=== PATIENT | female | born 1965 | race Caucasian/White ===

== ENCOUNTER → 2016-04-03 | Outpatient (CLI) | payer MEDICARE, OTHER ==
--- NOTE | 2016-04-03 13:28 | XR ---
EXAMINATION TYPE: XR chest 2V DATE OF EXAM: 04/03/2016 12:58 PM COMPARISON: NONE HISTORY: Chest pain TECHNIQUE: Frontal and lateral views of the chest are obtained. FINDINGS: There is no focal air space opacity, pleural effusion, or pneumothorax seen. The cardiac silhouette size is within normal limits. There is a scoliosis. Prominent lung volumes are noted. Kamaljit gical clips are present in the right upper quadrant. The osseous structures are intact. IMPRESSION: No acute cardiopulmonary process.
== END | disposition home or self-care (01) ==
LOC: RADXRMAIN 12:42
PROVIDERS: ATTEND Family Medicine
DX: R07.89 Other chest pain (principal)
CPT/HCPCS: 71020

== ENCOUNTER → 2016-04-15 | Outpatient (CLI) | payer MEDICARE, OTHER ==
[2016-04-15 08:31] LABS: EKG EKG PERFORMED
[2016-04-15 12:18] LABS: Cholesterol 176 mg/dL (<200); HDL Cholesterol 82 mg/dL (40-60); Triglycerides 105 mg/dL (<150)
[2016-04-15 13:05] LABS: Vitamin B12 604 pg/mL (239-931)
== END ==
LOC: LABWHC1 08:23
PROVIDERS: ATTEND Internal Medicine Endocrinology, Diabetes & Metabolism
DX: E10.65 Type 1 diabetes mellitus with hyperglycemia (principal); E03.9 Hypothyroidism, unspecified
CPT/HCPCS: 36415; 80061; 82043; 82607; 84443; 93005

== ENCOUNTER → 2016-06-04 | Outpatient (CLI) | payer MEDICARE, OTHER ==
--- NOTE | 2016-06-04 11:25 | XR ---
EXAMINATION TYPE: XR chest 2V DATE OF EXAM: 06/04/2016 11:14 AM COMPARISON: 04/03/2016 TECHNIQUE: PA and lateral views submitted. HISTORY: Pain FINDINGS: The lungs are clear and there is no pneumothorax, pleural effusion, or focal pneumonia. Curvature o f the spine noted. IMPRESSION: 1. No acute process.
== END | disposition home or self-care (01) ==
LOC: RADXRMAIN 10:58
PROVIDERS: ATTEND Family Medicine
DX: R52 Pain, unspecified (principal)
CPT/HCPCS: 71020

== ENCOUNTER → 2016-09-24 | Outpatient (CLI) | payer MEDICARE, OTHER ==
--- NOTE | 2016-09-24 08:03 | XR ---
Cervical spine HISTORY: M54.2, cervicalgia 5 views of the cervical spine Cervical vertebral bodies show preserved height, alignment, and bone mineralization. There is no sign ificant foraminal encroachment on oblique views. Loss of cervical lordosis could be due to muscle spa sm. Cervical vertebral bodies show preserved height, alignment, and bone mineralization. Disc spaces and prevertebral soft tissues are normal. IMPRESSION: Loss of lordosis.
--- NOTE | 2016-09-24 08:17 | CT ---
EXAMINATION TYPE: CT brain wo con DATE OF EXAM: 09/24/2016 COMPARISON: 02/01/2015 HISTORY: 51-year-old female Bilateral occipital neuralgia TECHNIQUE: Examination was done in axial plane without intravenous contrast. Coronal and sagittal r econstructions performed. CT DLP: 945.5 mGycm Automated exposure control for dose reduction was used. FINDINGS: There is no evidence of acute intracranial hemorrhage, acute ischemic changes, mass, mass-effect, or extra-axial fluid collection. There is no effacement of cerebral sulci or basal subarachnoid cister ns. There is no hydrocephalus. There is no midline shift. Hay-white matter distinction is preserv ed. Redemonstrated postsurgical changes of the paranasal sinuses. There is improved, now moderate mucosal thickening throughout the maxillary and ethmoid sinuses. Mastoid air cells well pneumatized. Orbits and globes appear intact. IMPRESSION: 1. No acute intracranial abnormality seen. 2. Prior FESS. There is improved, now moderate chronic paranasal sinus disease.
== END | disposition home or self-care (01) ==
LOC: RADCTMAIN 07:10
PROVIDERS: ATTEND Psychiatry & Neurology Neurology
DX: G44.309 Post-traumatic headache, unspecified, not intractable (principal); J34.9 Unspecified disorder of nose and nasal sinuses; M54.2 Cervicalgia
CPT/HCPCS: 70450; 72050

== ENCOUNTER → 2016-10-23 | Outpatient (CLI) | payer MEDICARE, OTHER ==
[2016-10-23 09:12] LABS: ALT 31 U/L (9-52); AST 22 U/L (14-36); Alkaline Phosphatase 47 U/L (38-126); Anion Gap 9 mmol/L; Blood Urea Nitrogen 9 mg/dL (7-17); Calcium 9.5 mg/dL (8.4-10.2); Carbon Dioxide 29 mmol/L (22-30); Chloride 101 mmol/L (98-107); Cholesterol 174 mg/dL (<200); Glucose 179 mg/dL (74-99); HDL Cholesterol 106 mg/dL (40-60); Non-African American GFR(MDRD) >60 (>60 ml/min/1.73 sqM); Potassium 4.3 mmol/L (3.5-5.1); Sodium 139 mmol/L (137-145); Total Bilirubin 0.8 mg/dL (0.2-1.3); Total Protein 6.9 g/dL (6.3-8.2)
[2016-10-23 18:42] LABS: Urine Creatinine 112.6 mg/dL
== END | disposition home or self-care (01) ==
LOC: LABWHC1 08:01
PROVIDERS: ATTEND Internal Medicine Endocrinology, Diabetes & Metabolism
DX: E10.65 Type 1 diabetes mellitus with hyperglycemia (principal); E03.8 Other specified hypothyroidism
CPT/HCPCS: 36415; 80053; 80061; 82043; 82570; 84443

== ENCOUNTER → 2017-05-07 | Outpatient (CLI) | payer MEDICARE, OTHER ==
[2017-05-07 09:45] LABS: ALT 25 U/L (9-52); AST 21 U/L (14-36); Albumin 4.1 g/dL (3.5-5.0); Alkaline Phosphatase 52 U/L (38-126); Anion Gap 10 mmol/L; Blood Urea Nitrogen 10 mg/dL (7-17); Calcium 9.8 mg/dL (8.4-10.2); Carbon Dioxide 31 mmol/L (22-30); Chloride 99 mmol/L (98-107); Cholesterol 188 mg/dL (<200); Glucose 207 mg/dL (74-99); HDL Cholesterol 84 mg/dL (40-60); LDL Cholesterol,Calculated 87 mg/dL (0-99); Potassium 4.6 mmol/L (3.5-5.1); Sodium 140 mmol/L (137-145); Total Bilirubin 0.5 mg/dL (0.2-1.3); Total Protein 6.8 g/dL (6.3-8.2); Triglycerides 83 mg/dL (<150)
[2017-05-07 17:30] LABS: Hemoglobin A1C 8.7 % (4.0-6.0)
== END | disposition home or self-care (01) ==
LOC: LABWHC1 08:38
PROVIDERS: ATTEND Internal Medicine Endocrinology, Diabetes & Metabolism
DX: E10.65 Type 1 diabetes mellitus with hyperglycemia (principal); E03.8 Other specified hypothyroidism
CPT/HCPCS: 36415; 80053; 80061; 82043; 82570; 83036; 84443

== ENCOUNTER → 2017-07-30 | Outpatient (CLI) | payer MEDICARE, OTHER ==
--- NOTE | 2017-07-31 14:31 | MM ---
Reason for exam: screening (asymptomatic). Last mammogram was performed 3 years ago. History: Patient is postmenopausal. Took hormonal contraceptives for 1 month beginning at age 22. Physical Findings: A clinical breast exam by your physician is recommended on an annual basis and results should be correlated with mammographic findings. MG 3D Screening Mammo W/Cad Bilateral CC and MLO view(s) were taken. Prior study comparison: July 21, 2014, bilateral MG screening mammo w CAD. July 16, 2013, bilateral MG screening mammo w CAD. The breast tissue is extremely dense which could obscure a lesion on mammography. No suspicious abnormality. No significant changes when compared with prior studies. ASSESSMENT: Negative, BI-RAD 1 RECOMMENDATION: Routine screening mammogram of both breasts in 1 year.
== END | disposition home or self-care (01) ==
LOC: RADMAMWWP 11:14
PROVIDERS: ATTEND Family Medicine
DX: Z12.31 Encounter for screening mammogram for malignant neoplasm of breast (principal)
CPT/HCPCS: 77063; 77067

== ENCOUNTER → 2018-03-10 | Outpatient (CLI) | payer MEDICARE, OTHER ==
[2018-03-10 10:13] VITALS: BP 116/65; PULSE 86; RESP 16; TEMP 97.8; BMI 17.9
--- NOTE | 2018-03-10 11:33 | P.HPOB ---
History of Present Illness H&P Date: 03/10/18 Chief Complaint: The patient is here for her routine gynecologic exam. This is a 53-year-old with an LMP of 2001. The patient status post MICHAEL in 2001 for benign reasons. The patient states she had a pelvic exam last year by her primary care physician because she was feeling some lumps in the vagina. The lumps are felt to be some type of vaginal skin tags per the patient. She feels 2 near the vaginal opening just inside of the vagina, and one deeper inside of the vagina. She states these can uncomfortable and burn with sexual intercourse. She states she 1st started noticing these lumps a few months ago and had never noticed them before. Review of Systems She believes she has lost about 14 pounds over the last 5 months. She denies respiratory, cardiac, or G.I. problems. Past Medical History Past Medical History: Asthma, Diabetes Mellitus (Type I diabetes), Hyperlipidemia, Thyroid Disorder (Hypothyroid) Additional Past Medical History / Comment(s): back pain. 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 She denies any other STDs. History of Any Multi-Drug Resistant Organisms: None Reported Past Surgical History: Adenoidectomy, Section (2nd , done with tubal ligation.), Cholecystectomy, Hernia Repair (Hiatal hernia), Hysterectomy (MICHAEL), Tonsillectomy, Tubal Ligation Additional Past Surgical History / Comment(s): sinus surgery. Multiple hand and foot surgeries. Correction of pyloric stenosis as an infant. Past Psychological History: No Psychological Hx Reported Smoking Status: Former smoker (Quit around age 32) Past Alcohol Use History: Occasional (4 per week.) Past Drug Use History: None Reported Additional History: She is , but lives with her ex- on and off. She is infrequently sexually active with him. 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 - Past Family History Mother Family Medical History: No Reported History Medications and Allergies Home Medications Medication Instructions Recorded Confirmed Type Insulin Aspart [NovoLOG] 0 unit CNTSUBQINF DIRECTED 10/15/14 03/10/18 History Omeprazole [PriLOSEC] 20 tab PO QAM 10/15/14 03/10/18 History Albuterol Inhaler [Ventolin Hfa 2 puff INHALATION DIRECTED PRN 12/19/1403/10 History Inhaler] Levothyroxine Sodium [Synthroid] 75 mcg PO MOWEFR 12/19/14 03/10/18 History Sucralfate [Carafate] 1 gm PO BID 12/19/14 03/10/18 History Pravastatin Sodium [Pravachol] 20 mg PO HS 03/10/18 03/10/18 History Allergies Allergy/AdvReac Type Severity Reaction Status Date / Time Penicillins AdvReac Nausea & Verified 03/10/18 10:01 Vomiting PAIN MEDS AdvReac Nausea & Uncoded 03/10/18 10:01 Vomiting Exam Vital Signs Temp Pulse Resp BP Pulse Ox 03/10/18 10:06 97.8 F 86 16 116/65 98 Intake and Output 03/09/18 03/10/18 03/10/18 22:59 06:59 14:59 Other: Weight 41.73 kg Height 5'0", weights 92 pounds, BMI 18.0. This is a well-developed well-nourished thin white female who is alert and oriented times 3 in no acute distress. HEENT: Within normal limits. NECK: Supple without mass or thyromegaly. CHEST AND LUNGS: Clear to auscultation. HEART: Regular rate and rhythm. BREASTS: Are without mass or discharge. AXILLARY EXAM: Negative for adenopathy. BACK: Negative for CVA tenderness. ABDOMEN: Soft, nontender, without palpable masses. There is a subcutaneous insulin pump at the right side of her abdomen. There is no erythema or tenderness. PELVIC EXAM: External genitalia appears normal with mild atrophy. Vagina appears normal with mild atrophy. There are no visible lesions. The skin tags that she describes on the right side seem to be in the location of the hymen ring reminent. These are noninflamed and nontender and appears as benign hymen tissue. There is a palpable submucosal nodule measuring approximately 1 cm to the left of the midline near the posterior aspect of the pubic symphasis. This feels firm and does not seem to be attached to the pubic synthesis. It is mildly tender. And is approximately 6 to 7 cm from the introitus. There is no evidence of prolapse. Bimanual examination is negative for mass or tenderness. RECTAL EXAM: Rectovaginal exam is negative for mass or tenderness and is negative for occult blood. EXTREMITIES: Nontender. IMPRESSION: 1. 53-year-old menopausal female status post MICHAEL for benign reasons 2. Submucosal anterior vaginal nodule to the left of the midline posterior to the pubic symphasis. She believes this is a recent finding on herself exam. 3. Dyspareunia at the area of the vaginal nodule. PLAN: 1. Pap smears have been discontinued. 2. Self breast awareness was discussed with the patient. Mammogram was done on 07/30/2017 and was benign. She will repeat this in one year. 3. She will be referred to a local cabin crew for possible removal of the vaginal nodule since this may need to be done under anesthesia. 4. STD prevention was discussed. I have recommended that she is condoms if she is sexually active. 5. Blood tests that will be done today include HIV, RPR, hepatitis B surface antigen, hepatitis C antibody. Also TSH and T4 will be included per the patient 's request. 6. The patient will return in one year and PRN.
[2018-03-10 16:30] LABS: T4, Free (Free Thyroxine) 1.4 ng/dL (0.80-1.80)
[2018-03-10 17:14] LABS: Hepatitis C IgG Antibody Non-Reactive (Non-Reactive)
[2018-03-10 18:16] LABS: HIV 1 AB Non-Reactive (Non-Reactive); HIV AB P24 Non-Reactive (Non-Reactive); HIV P24 AG Non-Reactive (Non-Reactive)
== END | disposition home or self-care (01) ==
LOC: WWCWWP 09:43
PROVIDERS: ATTEND Obstetrics & Gynecology
DX: E03.9 Hypothyroidism, unspecified (principal); Z11.3 Encounter for screening for infections with a predominantly sexual mode of transmission
CPT/HCPCS: 36415; 84439; 84443; 86780; 86803; 87340; 87390

== ENCOUNTER → 2018-04-20 | Outpatient (CLI) | payer MEDICARE, OTHER ==
[2018-04-20 12:56] LABS: HCT 36.7 % (34.0-46.0); HGB 11.7 gm/dL (11.4-16.0); MCH 32.1 pg (25.0-35.0); MCHC 31.9 g/dL (31.0-37.0); MCV 100.6 fL (80.0-100.0); Mean Platelet Volume 8.3; Platelet Count 204 k/uL (150-450); RBC 3.64 m/uL (3.80-5.40); RDW 12.4 % (11.5-15.5); WBC 4.4 k/uL (3.8-10.6)
[2018-04-20 14:45] LABS: Eosinophils # (M) 0.09 k/uL (0-0.7); Lymphocytes # (M) 0.92 k/uL (1.0-4.8); Monocytes # (M) 0.09 k/uL (0-1.0); Neutrophils % (M) 75 %; Nucleated Red Blood Cells 0 /100 WBC (0-0); Total Cells Counted 100
[2018-04-20 14:48] LABS: Hypochromasia (M) Present
== END | disposition home or self-care (01) ==
LOC: LABPAT 11:51
PROVIDERS: ATTEND Obstetrics & Gynecology
DX: Z01.818 Encounter for other preprocedural examination (principal); E10.9 Type 1 diabetes mellitus without complications; N94.10 Unspecified dyspareunia; N89.8 Other specified noninflammatory disorders of vagina; Z01.812 Encounter for preprocedural laboratory examination
CPT/HCPCS: 36415; 85025; 93005

== ENCOUNTER → 2018-05-05 | Day surgery (SDC) | payer MEDICARE, OTHER ==
[2018-04-28 11:07] VITALS: BMI 18.3
--- NOTE | 2018-04-30 10:19 | HP ---
HISTORY AND PHYSICAL DATE OF SURGERY: 05/05/2018 This is a 53-year-old female who presented from Dr. Zapata's care with complaint of a vaginal nodule. It has been present for approximately 6 months. She states it is very uncomfortable with intercourse and wishes it removed. This cannot be accomplished in the office setting due to the deep nature of the lesion, therefore it has been scheduled to be removed as an outpatient. Patient has no other problems or difficulties to report. REVIEW OF SYSTEMS: Otherwise negative. PAST MEDICAL HISTORY: Significant for asthma, type 1 diabetes, genital condylomata, hyperlipidemia, and hypothyroidism. PAST SURGICAL HISTORY: Significant for total abdominal hysterectomy 2001 for benign indications, sinus surgery, pyloric stenosis correction. Excision of benign lipomas, hiatal hernia repair, cholecystectomy, section, tonsillectomy and adenectomy in the past. CURRENT MEDICATIONS: Carafate 1 g tablet twice daily, levothyroxine 75 mcg daily, NovoLog insulin subcutaneously, p.r.n. blood sugar control, omeprazole 20 mg capsules before meals, Pravachol 20 mg once daily, Ventolin HFA 90 mcg inhaler, 2 puffs q.6 hours as needed. ALLERGIES: Include CODEINE, ERYTHROMYCIN, PENICILLIN, and "PAIN MEDICINES." FAMILY HISTORY: Significant for myocardial infarction. REPRODUCTIVE HISTORY: sections x2, vaginal delivery x1 at 34 weeks gestation. Patient is postmenopausal at this time. 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 She is a former tobacco smoker. PHYSICAL EXAM: She is 5 4 foot, 11.5 inches, 92 pounds, BMI 18.5. HEENT exam reveals no thyromegaly, good dentition, no obvious adenopathy. Chest is clear to auscultation in all marcum anteriorly and posteriorly. Cardiac exam reveals regular rate and rhythm with no murmur, click, or rub. Abdomen is soft, scaphoid, no organosplenomegaly, active bowel sounds. Breast exam reveals breasts to be bilaterally symmetric to inspection with no skin dimpling, nipple discharge, axillary adenopathy or discernible lesions or masses. The extremities reveal no edema, good peripheral pulses noted. Uterine cervix and uterus itself have been surgically removed. Adnexal exam is negative bilaterally. There is no cystocele or rectocele present. Deep inside the upper left apex of the vaginal vault, there is an 8 to 10 mm tender mobile firm nodule in the submucosal tissue. It is not fixed, but mobile, and in the corner of the vaginal closure from previous hysterectomy, I suspect this is a benign lesion. Rectal exam reveals good tone, FIT negative stool. IMPRESSION: Mobile tender vaginal apex lesion noted in the upper left apex of the vaginal vault. Patient wishing this to be removed, as she complains of tenderness with deep penetration at the time of intercourse. PLAN: We will proceed with excision of the vaginal lesion in the operating room at [facility] as scheduled on 05/05/2018. The risks of surgery including but not exclusive of bleeding, infection, perforation or damage to bowel, bladder, ureters, all been discussed in detail. Risks of infection, bleeding, risks of anesthesia all reviewed. Questions answered and I believe the patient understands our discussion with no reservation. MMODL / IJN: [id number] /
[~2018-05-05] MED LIST: DEXAMETHASONE SOD PHOSPHATE 10 MG/ML 1 ML VIAL IV ONE; HYDROmorphone 0.5 MG/0.5 ML SYRINGE IVP PRN; KETOROLAC 30 MG/ML 1 ML VIAL ONE; LACTATED RINGERS 1,000 ML IV SCH; LIDOCAINE 1% 20 ML VIAL (10MG/ML) FOR IV START INTRADERMA ONE; LIDOCAINE 1% INJ 10MG/ML (20 ML MDV) ONE; LIDOCAINE 1%-EPI 1:100,000 20 ML VIAL SQ ONE; MIDAZOLAM (PF) 2 MG/2 ML VIAL IV PRN; MIDAZOLAM 2 MG/2 ML VIAL ONE; ONDANSETRON 4 MG/2 ML VIAL IVP ONE; PROPOFOL 10 MG/ML 20 ML VIAL IV ONE; Pre Op ABX Message 1 EACH MISC MISCELLANE ONE; SCOPOLAMINE 1.5MG/72HR PATCH TRANSDERM ONE; SUCCINYLCHOLINE CHLORIDE 100 MG/5 ML SYR IV ONE; fentaNYL (PF) 50 MCG/ML 2 ML AMP ONE
[2018-05-05 07:07] LABS: Glucose,Whole Blood 121 mg/dL (75-99)
--- NOTE | 2018-05-05 07:52 | P.OP ---
Date of Procedure: 05/05/18 Preoperative Diagnosis: Painful left vaginal apex lesion Postoperative Diagnosis: Same Procedure(s) Performed: Excision left vaginal apex lesion Anesthesia: NEIL Surgeon: Lisa Andre Estimated Blood Loss (ml): 5 IV fluids (ml): 300 Urine output (ml): 50 Pathology: other (Vaginal apex lesion) Condition: stable Disposition: PACU Description of Procedure: Patient is brought to the operating suite where general anesthetic is admin istered. She's placed in the dorsal lithotomy position. The appropriate timeout is performed to assure proper patient and procedural identification. The vaginal cough and perineal areas are prepped and draped in usual sterile fashion. Upon palpating the upper vaginal apex, on the left side there is a firm nodular piece of tissue to which the patient reference to in the office. This is grasped with an Allis clamp after a weighted speculum was placed. The bladder is drained for 50 mL of clear yellow urine. The lesion is palpated to assure proper identification. With a scalpel, the lesion is wedged out and sent to pathology for evaluation. Electrocautery is used on the base for excellent hemostasis. A 2-0 Vicryl suture is then used in a running locking fashion to bring the vaginal edges back together. Upon palpation, the firm area is completely removed. Hemostasis again is excellent. All sponge needle and enhancement counts are correct. Patient is brought back to the recovery room in very good condition with stable vital signs, including blood pressure 91/50, pulse 90, 100% O2 saturation. Toradol is given prior to leaving the operative room. She will follow-up with me in the office in 2 weeks.
[2018-05-05 08:08] LABS: Glucose,Whole Blood 134 mg/dL (75-99)
[2018-05-05 08:31] VITALS: TEMP 98.3
[2018-05-05 08:33] VITALS: RESP 16
[2018-05-05 09:02] VITALS: BP 131/69; PULSE 67
== END | disposition home or self-care (01) ==
LOC: OR 06:22
PROVIDERS: ATTEND Obstetrics & Gynecology
DX: N89.8 Other specified noninflammatory disorders of vagina (principal); E78.5 Hyperlipidemia, unspecified; K21.9 Gastro-esophageal reflux disease without esophagitis; E11.9 Type 2 diabetes mellitus without complications; Z88.1 Allergy status to other antibiotic agents; Z88.5 Allergy status to narcotic agent; Z96.41 Presence of insulin pump (external) (internal); Z79.899 Other long term (current) drug therapy; Z88.0 Allergy status to penicillin
CPT/HCPCS: 57135; J2250; J1100; J2405; J2001; J3010; J1885; J0330; J2704; 88305

== ENCOUNTER → 2018-06-30 | Outpatient (CLI) | payer MEDICARE, OTHER ==
[2018-06-30 15:55] LABS: Hemoglobin A1C 8.6 % (4.0-6.0)
[2018-06-30 16:29] LABS: Albumin 4.5 g/dL (3.80-4.90); Albumin/Globulin Ratio 2.14 (1.60-3.17); Anion Gap 8.5 mmol/L (4.00-12.00); Calcium 9.5 mg/dL (8.7-10.3); Carbon Dioxide 28.5 mmol/L (21.6-31.8); Globulin 2.1 g/dL (1.6-3.3); LDL Cholesterol,Calculated 77.8 mg/dL (0.0-131.0); Potassium 4.5 mmol/L (3.5-5.5); Total Bilirubin 0.5 mg/dL (0.2-1.2); Total Protein 6.6 g/dL (6.2-8.2); VLDL Calculation 17.2 mg/dL (5.00-40.00)
== END | disposition home or self-care (01) ==
LOC: LABWHC1 08:02
PROVIDERS: ATTEND Internal Medicine Endocrinology, Diabetes & Metabolism
DX: E03.8 Other specified hypothyroidism (principal); E10.65 Type 1 diabetes mellitus with hyperglycemia
CPT/HCPCS: 36415; 80053; 80061; 82043; 82570; 83036; 84443

== ENCOUNTER 2018-12-18 10:20 | Emergency (ER) | payer MEDICARE, OTHER ==
--- NOTE | 2018-12-18 11:25 | CT ---
EXAMINATION TYPE: CT facial bones wo con DATE OF EXAM: 12/18/2018 COMPARISON: 11/08/2014 HISTORY: 53-year-old female Swelling and pain to right eye x 4 days. TECHNIQUE: Contiguous axial scanning of the facial bones without IV contrast. Coronal reconstructions performed. CT DLP: 410.2 mGycm Automated exposure control for dose reduction was used. FINDINGS: The mandible, zygomatic arches, nasal bone, pterygoid plates are intact. Redemonstrated posterior pleural changes of maxillary antrectomies with small polyps at the floors of the maxillary sinuses and mild pansinus mucosal thickening. Complete opacification right frontal sin us and frontal layering fluid left sphenoid sinus. There is preseptal soft tissue swelling on the right. Globes appear symmetric. No postseptal portable retrobulbar soft tissue abnormality seen. Some contiguous soft tissue swelling extends down along the premaxillary region. Mastoid air cells well pneumatized. Visualized intracranial structures show no gross abnormal body. IMPRESSION: 1. RIGHT-SIDED PRESEPTAL SOFT TISSUE THICKENING (SUGGESTING PRESEPTAL CELLULITIS) WITH CONTIGUOUS RIG HT-SIDED PREMAXILLARY CELLULITIS. NO POST SEPTAL INVOLVEMENT IS APPRECIATED. 2. MODERATE CHRONIC LOPEZ SINUS DISEASE STATUS POST BILATERAL MAXILLARY ANTRECTOMIES. 3. CORRELATE FOR SUPERIMPOSED ACUTE LEFT SPHENOID SINUSITIS GIVEN FROM THE LAYERING FLUID.
--- NOTE | 2018-12-18 12:07 | ED ---
Eye Problem HPI - General Source: patient Mode of arrival: ambulatory <Carley Cabrera - Last Filed: 12/18/18 11:58> <Arturo Coleah Jazmin - Last Filed: 12/21/18 23:55> - General Chief complaint: Eye Problems Stated complaint: RT EYE PROBLEM Time Seen by Provider: 12/18/18 10:34 - History of Present Illness Initial comments: Patient is a 53-year-old female presenting to emergency department complaints of right eye swelling that started approximately 4 days ago. Patient states she had minor swelling and pain to her lower right thigh and to call her PCP which started her on some antibiotic eyedrops thinking it could be pinkeye. Patient states the pain and swelling has increased and she has now complaining of right- sided headache as well as right-sided facial pain. Patient denies fever, chills, nausea, vomiting. Patient denies blurry vision, severe eye pain. Patient just describes it as eye irritation from the swelling and soreness. Patient has never had anything like this before. She does admit to prior sinus surgeries. Patient has no other complaints at this time. Upon arrival to the ER, vital signs are stable, afebrile. (Carley Cabrera) - Related Data Home Medications Medication Instructions Recorded Confirmed Insulin Aspart [NovoLOG] 0 unit [id number] DIRECTED 10/15/14 05/05/18 Omeprazole [PriLOSEC] 20 tab PO QAM 10/15/14 05/05/18 Albuterol Inhaler [Ventolin Hfa 2 puff INHALATION DIRECTED PRN 12/19/14 05/05/18 Inhaler] Levothyroxine Sodium [Synthroid] 75 mcg PO DAILY 12/19/14 05/05/18 Sucralfate [Carafate] 1 gm PO BID 12/19/14 05/05/18 Pravastatin Sodium [Pravachol] 20 mg PO HS 03/10/18 05/05/18 Previous Rx's Medication Instructions Recorded Clindamycin HCl 300 mg PO Q8H 10 Days #30 cap 12/18/18 Clindamycin [Cleocin] 150 mg PO Q8H 10 Days #30 capsule 12/18/18 Erythromycin Ophth Oint [Romycin 1 applic RIGHT EYE QID 5 Days #1 gm 12/18/18 Ophth Oint] Allergies Allergy/AdvReac Type Severity Reaction Status Date / Time Penicillins AdvReac Nausea & Verified 12/18/18 10:33 Vomiting PAIN MEDS AdvReac Nausea & Uncoded 12/18/18 10:33 Vomiting Review of Systems ROS Other: All systems not noted in ROS Statement are negative. <Carley Cabrera - Last Filed: 12/18/18 11:58> ROS Other: All systems not noted in ROS Statement are negative. <Carmen Cole Jazmin - Last Filed: 12/21/18 23:55> ROS Statement: Those systems with pertinent positive or pertinent negative responses have been documented in the HPI. Past Medical History Past Medical History: Asthma, Diabetes Mellitus, Hyperlipidemia, Thyroid Disorder Additional Past Medical History / Comment(s): back pain. 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 She denies any other STDs. History of Any Multi-Drug Resistant Organisms: None Reported Past Surgical History: Adenoidectomy, Section, Cholecystectomy, Hernia Repair, Hysterectomy, Tonsillectomy, Tubal Ligation Additional Past Surgical History / Comment(s): sinus surgery. Multiple hand and foot surgeries. Correction of pyloric stenosis as an . Past Psychological History: No Psychological Hx Reported Smoking Status: Former smoker Past Alcohol Use History: Occasional Past Drug Use History: None Reported - Past Family History Mother Family Medical History: Cancer <Carley Cabrera - Last Filed: 12/18/18 11:58> General Exam <Carley Cabrera - Last Filed: 12/18/18 11:58> - General Exam Comments Initial Comments: GENERAL: Well-appearing, well-nourished and in no acute distress. HEAD: Atraumatic, normocephalic. EYES: Pupils equal round and reactive to light, extraocular movements intact, sclera anicteric, conjunctiva are normal. Right lower eyelid is swollen, erythematous and painful to the touch. Pain with palpation of the right cheek and right forehead. There is some induration in the lower eyelid. There is some clear drainage from the right eye. ENT: TMs normal, nares patent, oropharynx clear without exudates. Moist mucous membranes. NECK: Normal range of motion, supple without lymphadenopathy or JVD. LUNGS: Breath sounds clear to auscultation bilaterally and equal. No wheezes rales or rhonchi. HEART: Regular rate and rhythm without murmurs, rubs or gallops. ABDOMEN: Soft, nontender, normoactive bowel sounds. No masses appreciated. NEUROLOGICAL: Cranial nerves II through XII grossly intact. Normal speech, normal gait. PSYCH: Normal mood, normal affect. SKIN: Warm, Dry, normal turgor, no rashes or lesions noted. (Carley Cabrera) Course Vital Signs 12/18/18 12/18/18 10:31 12:25 Temperature 98.4 F 98.2 F Pulse Rate 83 89 Respiratory 20 18 Rate Blood Pressure 142/82 125/67 O2 Sat by Pulse 99 99 Oximetry Medical Decision Making <Carley Cabrera - Last Filed: 12/18/18 11:58> <Carmen Cole - Last Filed: 12/21/18 23:55> - Medical Decision Making Patient is a 53-year-old female presenting with right eye redness, swelling, and irritation 4 days. Patient's vital signs are stable, afebrile. Patient appears to have right lower eyelid cellulitis. CT of the face shows right sided preseptal cellulitis. There is no post septal involvement. Patient will be started on clindamycin for the cellulitis. Patient will also take Motrin for inflammation and pain relief. Patient may also use hot and cold compresses for symptom relief. Patient is in agreement with this plan of care. Return parameters were discussed with the patient including fever, chills, nausea, vomiting or increase in eye pain, patient verbalized understanding. Case is discussed with Dr. Cole who agrees with this plan of care. (Carley Cabrera) I was available for consultation in the emergency department. The history and physical exam were done by the midlevel provider. I was consulted for this patients care. I reviewed the case with the midlevel provider and based on their presentation of the patient, I agree with the assessment, medical decision making and plan of care as documented. Chart was dictated using [employer] dictation software. Attempts were made to correct any dictation errors however some typographical errors may persist. (Carmen Cole) Disposition Is patient prescribed a controlled substance at d/c from ED?: No <Carley Cabrera - Last Filed: 12/18/18 11:58> <Carmen Cole - Last Filed: 12/21/18 23:55> Clinical Impression: Preseptal cellulitis of right lower eyelid Disposition: HOME SELF-CARE Condition: Stable Instructions (If sedation given, give patient instructions): Periorbital Cellulitis in Adults (ED) Additional Instructions: Please return to the Emergency Department if symptoms worsen or any other concerns. Take Motrin as needed for pain and swelling. May use warm and cool compresses to the right eye for symptomatically relief. Take oral antibiotics as discussed as well as antibiotic ointment. Follow-up with PCP or ophthalmology if symptoms persist. Prescriptions: Clindamycin [Cleocin] 150 mg PO Q8H 10 Days #30 capsule Clindamycin HCl 300 mg PO Q8H 10 Days #30 cap Erythromycin Ophth Oint [Romycin Ophth Oint] 1 applic RIGHT EYE QID 5 Days #1 gm Referrals: Korey Jeronimo DO [Primary Care Provider] - 1-2 days
[2018-12-18 12:25] VITALS: BP 125/67; PULSE 89; RESP 18; TEMP 98.2
== END 2018-12-18 12:25 | disposition home or self-care (01) ==
LOC: EC 10:20
DX: L03.213 Periorbital cellulitis (principal); J45.909 Unspecified asthma, uncomplicated; E11.9 Type 2 diabetes mellitus without complications; E78.5 Hyperlipidemia, unspecified; E07.9 Disorder of thyroid, unspecified; Z79.4 Long term (current) use of insulin; Z79.890 Hormone replacement therapy; Z79.899 Other long term (current) drug therapy; Z88.0 Allergy status to penicillin; Z88.8 Allergy status to other drugs, medicaments and biological substances; Z87.891 Personal history of nicotine dependence
CPT/HCPCS: 70486; 99283

== ENCOUNTER 2019-02-26 15:47 | Emergency (ER) | payer MEDICARE, OTHER ==
[2019-02-26 16:00] VITALS: TEMP 98
[2019-02-26] MEDS ORDERED: ONDANSETRON 4 MG/2 ML VIAL IVP STA (16:20)
[2019-02-26] MEDS ORDERED: KETOROLAC 30 MG/ML 1 ML VIAL IVP STA (16:20)
[2019-02-26] MEDS ORDERED: PANTOPRAZOLE 40 MG/10 ML VIAL IVP STA (16:20)
[2019-02-26] MEDS ORDERED: DICYCLOMINE 10 MG/ML 2 ML AMP IM STA (16:20)
[2019-02-26] MEDS ORDERED: SODIUM CHLORIDE 0.9% 1,000 ML IV STA (16:20)
--- NOTE | 2019-02-26 16:25 | ED ---
Abdominal Pain HPI - General Source: patient Mode of arrival: ambulatory Limitations: no limitations <Cedrick Gallardo - Last Filed: 02/26/19 23:59> <Carmen Cole - Last Filed: 03/03/19 15:58> - General Chief Complaint: Abdominal Pain Stated Complaint: Flank pain Time Seen by Provider: 02/26/19 16:03 - History of Present Illness Initial Comments: Patient is 54-year-old female presenting to emergency Department with chief complaint of abdominal pain. Patient states her symptoms initially began about one month ago and she saw her primary care who ordered an ultrasound but it was not completed. Patient states her pain is located in the lower right flank region/right lower quadrant region. Patient states over the last few days the pain is increased in severity, is constant and dull in nature. Patient does report intermittent, mild nausea but no vomiting. She does report nonbloody diarrhea over the last 3 days. Patient denies changes in appetite. Patient denies any night sweats or chills. She also reports some epigastric pain but states that is secondary to a hiatal hernia repair. Patient denies taking medications alleviate the symptoms. Patient denies history of kidney stones. (Cedrick Gallardo) - Related Data Home Medications Medication Instructions Recorded Confirmed Insulin Aspart [NovoLOG] 0 unit SQ-PUMP DIRECTED 10/15/14 05/05/18 Omeprazole [PriLOSEC] 20 tab PO QAM 10/15/14 05/05/18 Albuterol Inhaler [Ventolin Hfa 2 puff INHALATION DIRECTED PRN 12/19/14 05/05/18 Inhaler] Levothyroxine Sodium [Synthroid] 75 mcg PO DAILY 12/19/14 05/05/18 Sucralfate [Carafate] 1 gm PO BID 12/19/14 05/05/18 Pravastatin Sodium [Pravachol] 20 mg PO HS 03/10/18 05/05/18 Previous Rx's Medication Instructions Recorded Clindamycin HCl 300 mg PO Q8H 10 Days #30 cap 12/18/18 Clindamycin [Cleocin] 150 mg PO Q8H 10 Days #30 capsule 12/18/18 Erythromycin Ophth Oint [Romycin 1 applic RIGHT EYE QID 5 Days #1 gm 12/18/18 Ophth Oint] Allergies Allergy/AdvReac Type Severity Reaction Status Date / Time erythromycin base Allergy Unknown Verified 02/26/19 16:59 Penicillins AdvReac Nausea & Verified 02/26/19 15:59 Vomiting PAIN MEDS AdvReac Nausea & Uncoded 02/26/19 15:59 Vomiting Review of Systems ROS Other: All systems not noted in ROS Statement are negative. <Cedrick Gallardo - Last Filed: 02/26/19 23:59> ROS Other: All systems not noted in ROS Statement are negative. <Carmen Cole Jazmin - Last Filed: 03/03/19 15:58> ROS Statement: Those systems with pertinent positive or pertinent negative responses have been documented in the HPI. Past Medical History Past Medical History: Asthma, Diabetes Mellitus, Hyperlipidemia, Thyroid Disorder Additional Past Medical History / Comment(s): back pain. 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 She denies any other STDs. History of Any Multi-Drug Resistant Organisms: None Reported Past Surgical History: Adenoidectomy, Section, Cholecystectomy, Hernia Repair, Hysterectomy, Tonsillectomy, Tubal Ligation Additional Past Surgical History / Comment(s): sinus surgery. Multiple hand and foot surgeries. Correction of pyloric stenosis as an . Past Psychological History: No Psychological Hx Reported Smoking Status: Former smoker Past Alcohol Use History: Occasional Past Drug Use History: None Reported - Past Family History Mother Family Medical History: Cancer <Cedrick Gallardo - Last Filed: 02/26/19 23:59> General Exam Limitations: no limitations General appearance: alert, in no apparent distress Head exam: Present: atraumatic, normocephalic, normal inspection Eye exam: Present: normal appearance, PERRL, EOMI Pupils: Present: normal accommodation ENT exam: Present: normal exam, mucous membranes moist Neck exam: Present: normal inspection, full ROM Respiratory exam: Present: normal lung sounds bilaterally Cardiovascular Exam: Present: regular rate, normal rhythm, normal heart sounds GI/Abdominal exam: Present: soft, tenderness (Right flank pain. Right lower quadrant pain. Mild epigastric/left upper quadrant tenderness. Negative Rovsing, negative obturator, negative psoas.), normal bowel sounds. Absent: distended, guarding, rebound, rigid, mass, bruit, pulsatile mass, hernia Extremities exam: Present: normal inspection, full ROM Back exam: Present: normal inspection, full ROM, CVA tenderness (R) Neurological exam: Present: alert, oriented X3 Psychiatric exam: Present: normal affect, normal mood Skin exam: Present: warm, dry, intact, normal color <Cedrick Gallardo - Last Filed: 02/26/19 23:59> Course Vital Signs 02/26/19 02/26/19 15:57 19:45 Temperature 98 F Pulse Rate 86 65 Respiratory 20 18 Rate Blood Pressure 127/62 113/53 O2 Sat by Pulse 100 99 Oximetry Medical Decision Making - Lab Data Result diagrams: 02/26/19 16:26 02/26/19 16:26 <Cedrick Gallardo - Last Filed: 02/26/19 23:59> - Lab Data Result diagrams: 02/26/19 16:26 02/26/19 16:26 <Carmen Cole - Last Filed: 03/03/19 15:58> - Medical Decision Making Patient is a 54-year-old female presenting to the emergency department with a chief complaint of abdominal pain physical examination patient does appear to have right flank and right lower quadrant abdominal tenderness. Negative psoas, obturator, and Rovsing sign. Patient does not appear to be related to oral intake. CBC does indicate mild anemia. Patient does have an elevated glucose but she is a type I diabetic. UA is unremarkable. EKG shows sinus rhythm with no ST changes. CT of the abdomen and pelvis shows thickening of the gastric wa ll mostly suggesting gastritis. Patient was given symptomatically relief. I suspect the patient is experiencing muscular skeletal pain. Patient vised to follow-up with primary care. Strict return parameters were thoroughly discussed with patient was understanding and agreeable. Case discussed with physician. (Cedrick Gallardo) I was available for consultation in the emergency department. The history and physical exam were done by the midlevel provider. I was consulted for this patients care. I reviewed the case with the midlevel provider and based on their presentation of the patient, I agree with the assessment, medical decision making and plan of care as documented. Chart was dictated using [employer] dictation software. Attempts were made to correct any dictation errors however some typographical errors may persist. (Carmen Cole) - Lab Data Lab Results 02/26/19 02/26/19 02/26/19 Range/Units 16:26 16:26 16:26 WBC 5.9 (3.8-10.6) k/uL RBC 3.33 L (3.80-5.40) m/uL Hgb 11.3 L (11.4-16.0) gm/dL Hct 33.1 L (34.0-46.0) % MCV 99.5 (80.0-100.0) fL MCH 33.9 (25.0-35.0) pg MCHC 34.1 (31.0-37.0) g/dL RDW 12.2 (11.5-15.5) % Plt Count 242 (150-450) k/uL Neutrophils % (Manual) 58 % Lymphocytes % (Manual) 35 % Monocytes % (Manual) 3 % Eosinophils % (Manual) 4 % Neutrophils # (Manual) 3.42 (1.3-7.7) k/uL Lymphocytes # (Manual) 2.07 (1.0-4.8) k/uL Monocytes # (Manual) 0.18 (0-1.0) k/uL Eosinophils # (Manual) 0.24 (0-0.7) k/uL Nucleated RBCs 0 (0-0) /100 WBC Manual Slide Review Performed Sodium 139 (137-145) mmol/L Potassium 3.9 (3.5-5.1) mmol/L Chloride 105 (98-107) mmol/L Carbon Dioxide 27 (22-30) mmol/L Anion Gap 7 mmol/L BUN 14 (7-17) mg/dL Creatinine 0.86 (0.52-1.04) mg/dL Est GFR (CKD-EPI)AfAm >90 (>60 ml/min/1.73 sqM) Est GFR (CKD-EPI)NonAf 79 (>60 ml/min/1.73 sqM) Glucose 191 H (74-99) mg/dL Calcium 9.4 (8.4-10.2) mg/dL Total Bilirubin 0.6 (0.2-1.3) mg/dL AST 30 (14-36) U/L ALT 20 (4-34) U/L Alkaline Phosphatase 73 (38-126) U/L Total Protein 7.4 (6.3-8.2) g/dL Albumin 4.6 (3.5-5.0) g/dL Amylase 62 (30-110) U/L Lipase 68 (23-300) U/L Urine Color Yellow Urine Appearance Cloudy H (Clear) Urine pH 5.5 (5.0-8.0) Ur Specific [place] 1.031 (1.001-1.035) Urine Protein 1+ H (Negative) Urine Glucose (UA) Negative (Negative) Urine Ketones Trace H (Negative) Urine Blood Negative (Negative) Urine Nitrite Negative (Negative) Urine Bilirubin Negative (Negative) Urine Urobilinogen 3.0 (<2.0) mg/dL Ur Leukocyte Esterase Moderate H (Negative) Urine RBC 1 (0-5) /hpf Urine WBC 20 H (0-5) /hpf Ur Squamous Epith Cells 3 (0-4) /hpf Hyaline Casts 35 H (0-2) /lpf Urine Mucus Few H (None) /hpf - EKG Data EKG Comments: Normal sinus rhythm, no ST changes Ventricular rate 77, IN interval 166, QRS duration 70, QTC 436. (Cedrick Riddle) Disposition Is patient prescribed a controlled substance at d/c from ED?: No Time of Disposition: 19:33 <Cedrick Gallardo - Last Filed: 02/26/19 23:59> <Carmen Cole - Last Filed: 03/03/19 15:58> Clinical Impression: Right lower quadrant abdominal pain, Right flank pain Disposition: HOME SELF-CARE Condition: Stable Instructions (If sedation given, give patient instructions): Abdominal Pain (ED) Additional Instructions: Please follow up with primary care. Alternate between Tylenol and Motrin for pain control. Please return to emergency department if symptoms worsen. Referrals: Korey Jeronimo DO [Primary Care Provider] - 1-2 days
[2019-02-26 16:56] LABS: ALT 20 U/L (4-34); AST 30 U/L (14-36); African American GFR (CKD) >90 (>60 ml/min/1.73 sqM); Albumin 4.6 g/dL (3.5-5.0); Alkaline Phosphatase 73 U/L (38-126); Amylase 62 U/L (30-110); Anion Gap 7 mmol/L; Appearance,Urine Cloudy (Clear); Bilirubin,Urine Negative (Negative); Blood Urea Nitrogen 14 mg/dL (7-17); Blood,Urine Negative (Negative); Calcium 9.4 mg/dL (8.4-10.2); Carbon Dioxide 27 mmol/L (22-30); Chloride 105 mmol/L (98-107); Color,Urine Yellow; Glucose 191 mg/dL (74-99); Glucose,Urine (UA) Negative (Negative); HCT 33.1 % (34.0-46.0); HGB 11.3 gm/dL (11.4-16.0); Hyaline Casts,Urine 35 /lpf (0-2); Ketones,Urine Trace (Negative); Leukocyte Esterase,Urine Moderate (Negative); MCH 33.9 pg (25.0-35.0); MCHC 34.1 g/dL (31.0-37.0); MCV 99.5 fL (80.0-100.0); Mean Platelet Volume 8.4; Mucus,Urine Few /hpf; Nitrite,Urine Negative (Negative); Non-African American GFR(CKD) 79 (>60 ml/min/1.73 sqM); PH, Urine 5.5 (5.0-8.0); Platelet Count 242 k/uL (150-450); Potassium 3.9 mmol/L (3.5-5.1); Protein,Urine 1+ (Negative); RBC 3.33 m/uL (3.80-5.40); RBC,Urine 1 /hpf (0-5); RDW 12.2 % (11.5-15.5); Sodium 139 mmol/L (137-145); Specific Gravity,Urine 1.031 (1.001-1.035); Squamous Epithelial Cell,Urine 3 /hpf (0-4); Total Bilirubin 0.6 mg/dL (0.2-1.3); Total Protein 7.4 g/dL (6.3-8.2); WBC 5.9 k/uL (3.8-10.6); WBC,Urine 20 /hpf (0-5)
[2019-02-26 17:10] LABS: Eosinophils # (M) 0.24 k/uL (0-0.7); Lymphocytes # (M) 2.07 k/uL (1.0-4.8); Monocytes # (M) 0.18 k/uL (0-1.0); Neutrophils # (M) 3.42 k/uL (1.3-7.7); Neutrophils % (M) 58 %; Nucleated Red Blood Cells 0 /100 WBC (0-0); Total Cells Counted 100
--- NOTE | 2019-02-26 19:09 | CT ---
EXAMINATION TYPE: CT abdomen pelvis w con DATE OF EXAM: 02/26/2019 COMPARISON: None HISTORY: RLQ pain, dizziness. CT DLP: 460 mGycm Automated exposure control for dose reduction was used. CONTRAST: Performed with IV Contrast, patient injected with 100 mL of Isovue 300. Multiple axial sections were obtained from the diaphragm to the floor the pelvis with intravenous con trast Isovue 100 mL. FINDINGS: Lung bases are clear. There is no pleural effusion. There are clips at the gastroesophageal junction. There is mild wall thickening of the stomach. This is seen at the gastric fundus. There are clips from cholecystectomy. Liver spleen pancreas appear normal. Bile ducts are not dilated . There is no adrenal mass. Kidneys show satisfactory contrast opacification. There is no hydronephrosi s. Ureters are not dilated. Bladder distends smoothly. There are numerous phleboliths in the pelvis. There is hysterectomy. Lumbar spine is intact. Bony pelvis is intact. There is no mesenteric edema. There is no ascites or free air. There is no sign of a bowel obstructio n. Appendix is not seen. There is no sign of thickened appendix. IMPRESSION: Mild gastric fundal wall thickening could relate to some hypertrophic gastritis. Appendix not seen. N o sign of appendicitis. No acute abnormality in the abdomen pelvis.
[2019-02-26 19:50] VITALS: BP 113/53; PULSE 65; RESP 18
== END 2019-02-26 19:50 | disposition home or self-care (01) ==
LOC: EC 15:47
DX: E10.65 Type 1 diabetes mellitus with hyperglycemia (principal); D64.9 Anemia, unspecified; J45.909 Unspecified asthma, uncomplicated; E78.5 Hyperlipidemia, unspecified; E07.9 Disorder of thyroid, unspecified; Z90.49 Acquired absence of other specified parts of digestive tract; Z90.710 Acquired absence of both cervix and uterus; Z98.51 Tubal ligation status; Z87.891 Personal history of nicotine dependence; Z79.4 Long term (current) use of insulin; Z79.890 Hormone replacement therapy; Z79.899 Other long term (current) drug therapy; Z88.1 Allergy status to other antibiotic agents; Z88.0 Allergy status to penicillin; Z88.6 Allergy status to analgesic agent
CPT/HCPCS: 36415; 93005; 80053; 82150; 83690; 85025; 81001; 87086; 87077; 87186; 74177; 99284; 96374; 96375 ×2; 96361 ×3; 96372; J0500; J2405; J1885; C9113; Q9967

== ENCOUNTER → 2019-04-13 | Outpatient (CLI) | payer MEDICARE, OTHER ==
--- NOTE | 2019-04-13 15:39 | CT ---
EXAMINATION TYPE: CT sinus wo con DATE OF EXAM: 04/13/2019 COMPARISON: 12/18/2018 HISTORY: Chronic sinusitis, headaches since December CT DLP: 440.70 mGycm. Automated Exposure Control for Dose Reduction was Utilized. TECHNIQUE: CT scan of the sinuses is performed without contrast, axial images are obtained, coronal r eformatted images are also reviewed. FINDINGS: The ostiomeatal complexes have been surgically augmented and are patent. There is no signif icant mucosal hypertrophy. There is very mild undulation of the nasal septum however this remains ove rall midline (slight rightward nasal deviation posteriorly and leftward in the midportion cranially). There is mild mucosal thickening in the superior ethmoid sinuses towards the right frontal recess. Fr ontal sinuses and sphenoid sinuses as well as the mastoid air cells are well aerated. There is very m ild mucosal thickening of the most inferior maxillary sinuses. Atherosclerosis is seen of the intracranial vasculature. There is limitation in evaluation of the int racranial structures given technique. Orbits are symmetric and lenses are in place. Temporomandibular joints are unremarkable. IMPRESSION: Mild paranasal sinus disease with scant mucosal thickening of the ethmoid and maxillary s inuses improved from the prior of 12/18/2018. Ostiomeatal complexes are surgically augmented and shayne lindquist
== END | disposition home or self-care (01) ==
LOC: RADCTMAIN 15:08
PROVIDERS: ATTEND Otolaryngology
DX: J34.89 Other specified disorders of nose and nasal sinuses (principal); J32.9 Chronic sinusitis, unspecified; Z98.890 Other specified postprocedural states
CPT/HCPCS: 70486

== ENCOUNTER → 2020-01-14 | Outpatient (CLI) | payer MEDICARE, OTHER ==
--- NOTE | 2020-01-14 14:53 | CT ---
EXAMINATION TYPE: CT abdomen pelvis wo con DATE OF EXAM: 01/14/2020 COMPARISON: 02/26/2019 INDICATION: diverticulitis DLP: 205.9 mGycm, Automated exposure control for dose reduction was used. CONTRAST: 0 mL of Isovue 300. Study performed with Oral Contrast TECHNIQUE: Axial images were obtained from above the diaphragm to the pubic rami in the axial plane a t 5 mm thick sections. Reconstructed images are reviewed on the computer in the coronal plane. FINDINGS: Limited CT sections are obtained the lung bases. There is a 0.4 cm nodule within the periphery of th e left foot left right lung base. CT ABDOMEN: Liver: Normal Spleen: Normal Pancreas: Normal Adrenal glands: The adrenal glands are normal. Gallbladder: Cholecystectomy clips are present. Kidneys: No masses are evident. No hydronephrosis is present. No cysts are present. No renal stone s are evident. Aorta: Vascular calcification is within the aorta. Inferior vena cava: Normal. CT PELVIS: Loops of bowel within the abdomen and pelvis are normal. The studies performed without oral contr ast limiting bowel evaluation. Few scattered diverticuli may be within the sigmoid colon region. No s uspicious adjacent inflammatory changes evident. Appendix: Not identified. No suspicious dilated tubular structure or inflammatory changes evident. Urinary bladder: Decompressed with limited evaluation Genitourinary structures: Uterus and ovaries are not identified. No free fluid is within the pelvis Osseous structures: No suspicious lytic or sclerotic lesions. IMPRESSIONS: 1. No acute abnormality to account for left lower quadrant pain. No suspicious changes for acute div erticulitis. Mild diverticulosis is evident. 2. Nodule within the periphery of the right lower lung field. Follow-up CT chest in 6 months is recom mended
== END | disposition home or self-care (01) ==
LOC: RADCTMAIN 13:36
PROVIDERS: ATTEND Family Medicine
DX: K57.92 Diverticulitis of intestine, part unspecified, without perforation or abscess without bleeding (principal)
CPT/HCPCS: 74176

== ENCOUNTER 2020-05-01 12:32 | Inpatient (IN) | payer MEDICARE, OTHER ==
[2020-05-01] MEDS ORDERED: ACETAMINOPHEN TAB 325 MG TAB PO STA (12:44)
[2020-05-01] MEDS ORDERED: ALBUTEROL HFA INHALER INHALATION STA (12:44)
--- NOTE | 2020-05-01 12:48 | ED ---
General Adult HPI - General Chief complaint: Shortness of Breath Stated complaint: SOB Time Seen by Provider: 05/01/20 12:38 Source: patient, RN notes reviewed Mode of arrival: ambulatory Limitations: no limitations - History of Present Illness Initial comments: Patient is a pleasant 55-year-old female presenting to the emergency Department with cough and shortness of breath. Onset of symptoms was 4 days ago. Patient did have nausea with one episode of yesterday vomiting. Patient has decreased appetite and increasing small amounts. No abdominal pain. No diarrhea. Patient feels significant fatigue. Patient is having some chills. - Related Data Home Medications Medication Instructions Recorded Confirmed Levothyroxine Sodium [Synthroid] 75 mcg PO DAILY 12/19/14 05/01/20 Sucralfate [Carafate] 1 gm PO BID-W/MEALS 12/19/14 05/01/20 Albuterol Sulfate [Proair Hfa] 1 - 2 puff INHALATION RT-Q6H PRN 05/01/20 05/01/20 Insulin Aspart (For Pump) [NovoLOG 0.01 unit SQ-PUMP CONTINUOUS 05/01/20 05/01/20 (For Pump)] Montelukast [Singulair] 10 mg PO DAILY 05/01/20 05/01/20 Pravastatin Sodium [Pravachol] 40 mg PO HS 05/01/20 05/01/20 Sertraline [Zoloft] 12.5 mg PO DAILY 05/01/20 05/01/20 Allergies Allergy/AdvReac Type Severity Reaction Status Date / Time erythromycin base Allergy Unknown Verified 05/01/20 13:42 Penicillins AdvReac Nausea & Verified 05/01/20 13:42 Vomiting PAIN MEDS AdvReac Nausea & Uncoded 05/01/20 13:42 Vomiting Review of Systems ROS Statement: Those systems with pertinent positive or pertinent negative responses have been documented in the HPI. ROS Other: All systems not noted in ROS Statement are negative. Constitutional: Denies: fever Eyes: Denies: eye pain ENT: Denies: ear pain Respiratory: Reports: cough, dyspnea Cardiovascular: Denies: chest pain Endocrine: Reports: fatigue Gastrointestinal: Reports: nausea. Denies: abdominal pain Genitourinary: Denies: dysuria Musculoskeletal: Denies: back pain Skin: Denies: rash Neurological: Denies: weakness Past Medical History Past Medical History: Asthma, Diabetes Mellitus, Hyperlipidemia, Thyroid Disorder Additional Past Medical History / Comment(s): back pain. 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 She denies any other STDs. History of Any Multi-Drug Resistant Organisms: None Reported Past Surgical History: Adenoidectomy, Section, Cholecystectomy, Hernia Repair, Hysterectomy, Tonsillectomy, Tubal Ligation Additional Past Surgical History / Comment(s): sinus surgery. Multiple hand and foot surgeries. Correction of pyloric stenosis as an . Past Psychological History: No Psychological Hx Reported Smoking Status: Never smoker Past Alcohol Use History: Occasional Past Drug Use History: None Reported - Past Family History Mother Family Medical History: Cancer General Exam Limitations: no limitations General appearance: alert, in no apparent distress Head exam: Present: atraumatic, normocephalic Eye exam: Present: normal appearance Neck exam: Present: normal inspection Respiratory exam: Present: rhonchi (With cough) Cardiovascular Exam: Present: regular rate, normal rhythm GI/Abdominal exam: Present: soft. Absent: tenderness Extremities exam: Present: normal inspection. Absent: pedal edema, calf tenderness Neurological exam: Present: alert Psychiatric exam: Present: normal affect, normal mood Skin exam: Present: normal color Course Vital Signs 05/01/20 05/01/20 05/01/20 12:34 12:52 13:45 Temperature 98.7 F Pulse Rate 89 81 78 Respiratory 20 18 18 Rate Blood Pressure 130/64 125/71 128/60 O2 Sat by Pulse 97 97 93 L Oximetry 05/01/20 05/01/20 13:59 14:48 Temperature Pulse Rate 77 Respiratory 18 18 Rate Blood Pressure 125/66 O2 Sat by Pulse 97 Oximetry EKG Findings - EKG Comments: EKG Findings:: Sinus rhythm at 90. MO 166. QRS 74. QT 364. QTC 445. Normal axis. Motion artifact is present. Normal QRS. No acute ST change Medical Decision Making - Medical Decision Making Patient with hyponatremia, hyperglycemia, hypoxia with 93% saturation on room air. Patient does not feel well and does not feel comfortable going home. Case was discussed with Dr. Jeronimo, who will admit his patient. - Lab Data Result diagrams: 05/01/20 13:04 05/01/20 13:04 Lab Results 03/22/21 03/22/21 03/22/21 Range/Units 13:04 13:04 13:04 WBC 2.6 L (3.8-10.6) k/uL RBC 3.81 (3.80-5.40) m/uL Hgb 12.7 (11.4-16.0) gm/dL Hct 37.1 (34.0-46.0) % MCV 97.4 (80.0-100.0) fL MCH 33.3 (25.0-35.0) pg MCHC 34.2 (31.0-37.0) g/dL RDW 12.4 (11.5-15.5) % Plt Count 160 (150-450) k/uL MPV 8.4 Neutrophils % (Manual) 64 % Lymphocytes % (Manual) 30 % Monocytes % (Manual) 6 % Neutrophils # (Manual) 1.66 (1.3-7.7) k/uL Lymphocytes # (Manual) 0.78 L (1.0-4.8) k/uL Monocytes # (Manual) 0.16 (0-1.0) k/uL Nucleated RBCs 0 (0-0) /100 WBC Manual Slide Review Performed RBC Morphology Normal PT 9.8 (9.0-12.0) sec INR 0.9 (<1.2) APTT 24.7 (22.0-30.0) sec D-Dimer 0.34 (<0.60) mg/L FEU Sodium 128 L (137-145) mmol/L Potassium 4.2 (3.5-5.1) mmol/L Chloride 90 L (98-107) mmol/L Carbon Dioxide 26 (22-30) mmol/L Anion Gap 12 mmol/L BUN 11 (7-17) mg/dL Creatinine 0.86 (0.52-1.04) mg/dL Est GFR (CKD-EPI)AfAm 90 (>60 ml/min/1.73 sqM) Est GFR (CKD-EPI)NonAf 78 (>60 ml/min/1.73 sqM) Glucose 385 H (74-99) mg/dL Plasma Lactic Acid Romie (0.7-2.0) mmol/L Calcium 8.9 (8.4-10.2) mg/dL Magnesium 1.4 L (1.6-2.3) mg/dL Total Bilirubin 0.5 (0.2-1.3) mg/dL AST 38 H (14-36) U/L ALT 27 (4-34) U/L Alkaline Phosphatase 63 (38-126) U/L Lactate Dehydrogenase 475 (313-618) U/L C-Reactive Protein 6.1 (<10.0) mg/L Total Protein 7.3 (6.3-8.2) g/dL Albumin 4.5 (3.5-5.0) g/dL Coronavirus (PCR) (Not Detectd) 05/01/20 05/01/20 Range/Units 13:04 13:04 WBC (3.8-10.6) k/uL RBC (3.80-5.40) m/uL Hgb (11.4-16.0) gm/dL Hct (34.0-46.0) % MCV (80.0-100.0) fL MCH (25.0-35.0) pg MCHC (31.0-37.0) g/dL RDW (11.5-15.5) % Plt Count (150-450) k/uL MPV Neutrophils % (Manual) % Lymphocytes % (Manual) % Monocytes % (Manual) % Neutrophils # (Manual) (1.3-7.7) k/uL Lymphocytes # (Manual) (1.0-4.8) k/uL Monocytes # (Manual) (0-1.0) k/uL Nucleated RBCs (0-0) /100 WBC Manual Slide Review RBC Morphology PT (9.0-12.0) sec INR (<1.2) APTT (22.0-30.0) sec D-Dimer (<0.60) mg/L FEU Sodium (137-145) mmol/L Potassium (3.5-5.1) mmol/L Chloride (98-107) mmol/L Carbon Dioxide (22-30) mmol/L Anion Gap mmol/L BUN (7-17) mg/dL Creatinine (0.52-1.04) mg/dL Est GFR (CKD-EPI)AfAm (>60 ml/min/1.73 sqM) Est GFR (CKD-EPI)NonAf (>60 ml/min/1.73 sqM) Glucose (74-99) mg/dL Plasma Lactic Acid Romie 1.5 (0.7-2.0) mmol/L Calcium (8.4-10.2) mg/dL Magnesium (1.6-2.3) mg/dL Total Bilirubin (0.2-1.3) mg/dL AST (14-36) U/L ALT (4-34) U/L Alkaline Phosphatase (38-126) U/L Lactate Dehydrogenase (313-618) U/L C-Reactive Protein (<10.0) mg/L Total Protein (6.3-8.2) g/dL Albumin (3.5-5.0) g/dL Coronavirus (PCR) Detected A (Not Detectd) - Radiology Data Radiology results: image reviewed (Chest x-ray reported as no acute process) Disposition Clinical Impression: COVID-19 Disposition: ADMITTED IP TO THIS HOSP Is patient prescribed a controlled substance at d/c from ED?: No Referrals: Korey Jeronimo DO [Primary Care Provider] - 1-2 days Decision Time: 15:20
--- NOTE | 2020-05-01 13:17 | XR ---
EXAMINATION TYPE: XR chest 1V portable DATE OF EXAM: 05/01/2020 COMPARISON: Chest x-ray 06/04/2016 HISTORY: Suspected Covid 19 pneumonia TECHNIQUE: Single frontal view of the chest is obtained. FINDINGS: There is no focal air space opacity, pleural effusion, or pneumothorax seen. The cardiac silhouette size is within normal limits. The osseous structures are intact, there is an underlying scoliotic curvature to the spine as on prior exam with possible pectus deformity, overlying cardiac l betty are noted. IMPRESSION: No acute process.
[2020-05-01 13:24] LABS: Potassium 4.2 mmol/L (3.5-5.1)
[2020-05-01 13:27] LABS: Albumin 4.5 g/dL (3.5-5.0); C Reactive Protein 6.1 mg/L (<10.0); Calcium 8.9 mg/dL (8.4-10.2); Magnesium 1.4 mg/dL (1.6-2.3); Total Bilirubin 0.5 mg/dL (0.2-1.3); Total Protein 7.3 g/dL (6.3-8.2)
[2020-05-01 13:29] LABS: D-Dimer 0.34 mg/L FEU (<0.60); INR 0.9 (<1.2); Prothrombin Time 9.8 sec (9.0-12.0)
[2020-05-01 13:30] LABS: Partial Thromboplastin Time 24.7 sec (22.0-30.0)
[2020-05-01 13:37] LABS: HCT 37.1 % (34.0-46.0); HGB 12.7 gm/dL (11.4-16.0); MCH 33.3 pg (25.0-35.0); MCHC 34.2 g/dL (31.0-37.0); MCV 97.4 fL (80.0-100.0); Mean Platelet Volume 8.4; Platelet Count 160 k/uL (150-450); RBC 3.81 m/uL (3.80-5.40); RDW 12.4 % (11.5-15.5); WBC 2.6 k/uL (3.8-10.6)
[2020-05-01 13:54] LABS: Lymphocytes # (M) 0.78 k/uL (1.0-4.8); Monocytes # (M) 0.16 k/uL (0-1.0); Neutrophils # (M) 1.66 k/uL (1.3-7.7); Neutrophils % (M) 64 %; Nucleated Red Blood Cells 0 /100 WBC (0-0); Total Cells Counted 100
[2020-05-01] MEDS ORDERED: SODIUM CHLORIDE 0.9% 500 ML 500 ML IV STA (14:01)
[2020-05-01] MEDS ORDERED: MAGNESIUM OXIDE 400 MG TAB PO STA (14:01)
[2020-05-01] MEDS ORDERED: NALOXONE 0.4 MG/ML 1 ML VIAL IV PRN (15:24)
[2020-05-01] MEDS: ALBUTEROL HFA INHALER INHALATION PRN ×2 (15:51→20:07)
[2020-05-01] MEDS: SODIUM CHLORIDE 0.9% 1,000 ML IV SCH (16:04)
[2020-05-01] MEDS: ZINC SULFATE 220 MG CAP PO SCH (16:04)
[2020-05-01] MEDS: DEXAMETHASONE SOD PHOSPHATE 10 MG/ML 1 ML VIAL IV SCH (16:04)
[2020-05-01] MEDS: ENOXAPARIN 40 MG/0.4 ML SYRINGE SQ SCH (16:04)
[2020-05-01] MEDS: CHOLECALCIFEROL 25 MCG (1000 IU) TABLET PO SCH (16:05)
[2020-05-01 17:33] LABS: Glucose,Whole Blood 254 mg/dL (75-99)
[2020-05-01 19:26] LABS: Ferritin 125.4 ng/mL (10.0-291.0)
[2020-05-01] MEDS: INSULIN ASPART (NovoLOG) 100 UNIT/ML VIAL SQ SCH ×2 (19:54→22:34)
[2020-05-01] MEDS: ASCORBIC ACID 500 MG TAB PO SCH (21:24)
[2020-05-01 21:31] LABS: Glucose,Whole Blood 276 mg/dL (75-99)
[2020-05-02] MEDS: ALBUTEROL HFA INHALER INHALATION PRN ×3 (08:15→17:06)
[2020-05-02 08:22] LABS: Glucose,Whole Blood 276 mg/dL (75-99)
[2020-05-02] MEDS: ZINC SULFATE 220 MG CAP PO SCH (08:22)
[2020-05-02] MEDS: ENOXAPARIN 40 MG/0.4 ML SYRINGE SQ SCH (08:22)
[2020-05-02] MEDS: DEXAMETHASONE SOD PHOSPHATE 10 MG/ML 1 ML VIAL IV SCH (08:23)
[2020-05-02] MEDS: CHOLECALCIFEROL 25 MCG (1000 IU) TABLET PO SCH (08:23)
[2020-05-02] MEDS: ASCORBIC ACID 500 MG TAB PO SCH ×2 (08:24→19:57)
[2020-05-02] MEDS: INSULIN ASPART (NovoLOG) 100 UNIT/ML VIAL SQ SCH ×4 (08:29→19:57)
[2020-05-02] MEDS: ACETAMINOPHEN TAB 325 MG TAB PO PRN ×2 (08:31→18:23)
[2020-05-02] MEDS: SODIUM CHLORIDE 0.9% 1,000 ML IV SCH ×2 (08:37→18:24)
[2020-05-02] MEDS ORDERED: Magnesium Replacement Protocol 1 EACH MISC MISCELLANE PRN (09:38)
[2020-05-02] MEDS: SERTRALINE 25 MG TAB PO SCH (09:48)
[2020-05-02] MEDS: LEVOTHYROXINE 75 MCG TAB PO SCH (09:57)
[2020-05-02] MEDS: PANTOPRAZOLE 40 MG/10 ML VIAL IVP SCH (09:57)
[2020-05-02] MEDS: SUCRALFATE 1 GM TAB PO SCH ×2 (09:57→17:49)
[2020-05-02] MEDS ORDERED: INSULIN DETEMIR (LEVEMIR) 100 UNIT/ML SYR SQ SCH (10:00)
[2020-05-02 10:25] LABS: HGB 11.6 gm/dL (11.4-16.0); MCH 32.2 pg (25.0-35.0); MCHC 33.3 g/dL (31.0-37.0); MCV 96.7 fL (80.0-100.0); Mean Platelet Volume 8.4; Platelet Count 141 k/uL (150-450); RBC 3.62 m/uL (3.80-5.40); RDW 12.7 % (11.5-15.5)
[2020-05-02 10:39] LABS: African American GFR (CKD) >90 (>60 ml/min/1.73 sqM); Anion Gap 8 mmol/L; Blood Urea Nitrogen 11 mg/dL (7-17); Calcium 8.7 mg/dL (8.4-10.2); Carbon Dioxide 24 mmol/L (22-30); Chloride 98 mmol/L (98-107); Glucose 358 mg/dL (74-99); Magnesium 1.5 mg/dL (1.6-2.3); Non-African American GFR(CKD) >90 (>60 ml/min/1.73 sqM); Potassium 3.7 mmol/L (3.5-5.1); Sodium 130 mmol/L (137-145)
[2020-05-02] MEDS: INSULIN DETEMIR (LEVEMIR) 100 UNIT/ML SYR SQ SCH (10:45)
[2020-05-02] MEDS: MAGNESIUM SULFATE-D5W PMX 1 GM in DEXTROSE/WATER 1 100ML.BAG IVPB SCH ×2 (12:05→13:07)
--- NOTE | 2020-05-02 12:16 | P.HPIM ---
History of Present Illness H&P Date: 05/02/20 Chief Complaint: Worsening shortness of breath, fatigued This is a 55-year-old female with past medical history of chronic intermittent asthma, diabetes mellitus, hyperlipidemia, hypothyroidism, and multiple other medical issues presented to the ER with worsening shortness of breath. Reports symptoms initiated on , flulike with chills, Friday slept all day and by the weekend worsening shortness of breath , fatigue and eventually presented to the ER. Denies cough .Denies nausea vomiting or diarrhea. Denies abdominal pain. Denies loss of taste or sense of smell. Denies being around anyone that had been sick or participating in group gatherings.denies chest pain, palpitations .On admission maintaining O2 sats in the high 90s on room air, respiratory rate 18-20 ,afebrile, vital signs stable. Labs on admission ,WBC 2.6, otherwise hematology anticoagulation panels, unremarkable. Sodium 128, potassium 4.2, chloride 90, carbon dioxide 26, BUN 11, creatinine 0.86. On admission glucose elevated at 385, currently down to mid 200s. Ferritin 125 ,Magnesium 1.4, CRP 6.1,, LDH 475, minimally elevated AST of 38-repeat labs in progress. Coronovirus detected. Chest x-ray reported no acute process. EKG reporting sinus rhythm with occasional PVC .IV fluids, Decadron, vitamin C, vitamin D, zinc initiated in the ER. Review of Systems ROS Statement: Those systems with pertinent positive or pertinent negative responses have been documented in the HPI. ROS Other: All systems not noted in ROS Statement are negative. Past Medical History Past Medical History: Asthma, Diabetes Mellitus, Hyperlipidemia, Thyroid Disorder Additional Past Medical History / Comment(s): back pain. 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 She denies any other STDs. History of Any Multi-Drug Resistant Organisms: None Reported Past Surgical History: Adenoidectomy, Section, Cholecystectomy, Hernia Repair, Hysterectomy, Tonsillectomy, Tubal Ligation Additional Past Surgical History / Comment(s): sinus surgery. Multiple hand and foot surgeries. Correction of pyloric stenosis as an . Past Psychological History: No Psychological Hx Reported Smoking Status: Never smoker Past Alcohol Use History: Occasional Past Drug Use History: None Reported - Past Family History Mother Family Medical History: Cancer Medications and Allergies Home Medications Medication Instructions Recorded Confirmed Type Levothyroxine Sodium [Synthroid] 75 mcg PO DAILY 12/19/14 05/01/20 History Sucralfate [Carafate] 1 gm PO BID-W/MEALS 12/19/14 05/01/20 History Albuterol Sulfate [Proair Hfa] 1 - 2 puff INHALATION RT-Q6H PRN 05/01/20 05/01/20 History Insulin Aspart (For Pump) [NovoLOG 0.01 unit SQ-PUMP CONTINUOUS 05/01/20 05/01/20 History (For Pump)] Montelukast [Singulair] 10 mg PO DAILY 05/01/20 05/01/20 History Pravastatin Sodium [Pravachol] 40 mg PO HS 05/01/20 05/01/20 History Sertraline [Zoloft] 12.5 mg PO DAILY 05/01/20 05/01/20 History Allergies Allergy/AdvReac Type Severity Reaction Status Date / Time erythromycin base Allergy Unknown Verified 05/01/20 13:42 Penicillins AdvReac Nausea & Verified 05/01/20 13:42 Vomiting PAIN MEDS AdvReac Nausea & Uncoded 05/01/20 13:42 Vomiting Physical Exam Vitals: Vital Signs Temp Pulse Resp BP Pulse Ox 05/02/20 08:39 86 18 146/67 97 05/02/20 06:35 92 18 139/93 95 05/02/20 02:28 16 05/02/20 00:53 68 16 149/70 97 05/02/20 00:08 16 05/01/20 23:49 16 05/01/20 18:00 78 18 121/81 97 05/01/20 14:48 77 18 125/66 97 05/01/20 13:59 18 05/01/20 13:45 78 18 128/60 93 L 05/01/20 12:52 81 18 125/71 97 05/01/20 12:34 98.7 F 89 20 130/64 97 PHYSICAL EXAM: VITAL SIGNS: [As above] GENERAL: Sitting up in bed, no acute distress HEENT: Conjunctivae normal. eyes normal. NECK: No JVD. No thyroid enlargement. No LNs CARDIOVASCULAR: S1, S2 regular. No murmur RESPIRATION: Breath sounds diminished in the bases. Scattered rhonchi, no crackles. Positive expiratory wheezing ABDOMEN: Soft, nontender . No guarding. no masses palpable. No ascites, No hepatosplenomegaly.Bowel sounds heard. LEGS: No edema. no swelling PSYCHIATRY: Alert and oriented X3, mood and affect normal. NERVOUS SYSTEM: Cranial N 2-12 grossly normal. Moves all 4 limbs. Diffuse weakness No focal deficits. Skin: Warm and dry, no rash Lymphatic system. No LN neck axilla. Results CBC & Chem 7: 05/02/20 10:06 05/02/20 10:06 Labs: Abnormal Lab Results - Last 24 Hours (Table) 05/01/20 05/01/20 05/01/20 Range/Units 13:04 13:04 13:04 WBC 2.6 L (3.8-10.6) k/uL Lymphocytes # (Manual) 0.78 L (1.0-4.8) k/uL Sodium 128 L (137-145) mmol/L Chloride 90 L (98-107) mmol/L Glucose 385 H (74-99) mg/dL POC Glucose (mg/dL) (75-99) mg/dL Magnesium 1.4 L (1.6-2.3) mg/dL AST 38 H (14-36) U/L Coronavirus (PCR) Detected A (Not Detectd) 05/01/20 05/01/20 05/02/20 Range/Units 17:31 21:25 08:21 WBC (3.8-10.6) k/uL Lymphocytes # (Manual) (1.0-4.8) k/uL Sodium (137-145) mmol/L Chloride (98-107) mmol/L Glucose (74-99) mg/dL POC Glucose (mg/dL) 254 H 276 H 276 H (75-99) mg/dL Magnesium (1.6-2.3) mg/dL AST (14-36) U/L Coronavirus (PCR) (Not Detectd) Assessment and Plan Assessment: Acute Covid-19 pneumonitis with possible underlying acute on chronic asthma exacerbation Hyponatremia Diabetes mellitus, hyperglycemic present on admission. Hypothyroidism Hyperlipidemia Plan: Continue on current medication regime ,monitoring and symptomatic treatment. Maintain on Covid regimen. Hyperglycemic, Long-acting insulin added to med regimen, close monitoring of Accu-Cheks. Hemoglobin A1c ordered/pending. Blood Cultures collected in the ER, results pending. Close monitoring of Na/electrolytes with repeat labs ordered for a.m. The impression and plan of care has been dictated as directed. : I performed a history and examination of this patient, discussed the same with the dictator. I agree with the dictator's note ,documented as a scribe. Any additional findings or plans will be noted.
[2020-05-02] MEDS: SYMBICORT 80-4.5 MCG INHALER INHALATION SCH ×2 (12:18→22:01)
[2020-05-02 12:40] LABS: Glucose,Whole Blood 414 mg/dL (75-99)
[2020-05-02 16:36] LABS: Glucose,Whole Blood 287 mg/dL (75-99)
[2020-05-02 16:58] LABS: Hemoglobin A1C 8.2 % (4.0-6.0)
[2020-05-02 19:56] LABS: Glucose,Whole Blood 257 mg/dL (75-99)
[2020-05-02] MEDS: PRAVASTATIN SODIUM 40 MG TAB PO SCH (19:57)
[2020-05-02] MEDS: MONTELUKAST 10 MG TAB PO SCH (19:57)
[2020-05-03] MEDS: LEVOTHYROXINE 75 MCG TAB PO SCH (05:00)
[2020-05-03] MEDS: ACETAMINOPHEN TAB 325 MG TAB PO PRN ×2 (05:00→21:17)
[2020-05-03 07:19] LABS: Glucose,Whole Blood 100 mg/dL (75-99)
[2020-05-03] MEDS: ENOXAPARIN 40 MG/0.4 ML SYRINGE SQ SCH (07:56)
[2020-05-03] MEDS: DEXAMETHASONE SOD PHOSPHATE 10 MG/ML 1 ML VIAL IV SCH (07:57)
[2020-05-03] MEDS: INSULIN DETEMIR (LEVEMIR) 100 UNIT/ML SYR SQ SCH (07:57)
[2020-05-03] MEDS: SUCRALFATE 1 GM TAB PO SCH ×2 (07:57→17:42)
[2020-05-03] MEDS: CHOLECALCIFEROL 25 MCG (1000 IU) TABLET PO SCH (07:57)
[2020-05-03] MEDS: ASCORBIC ACID 500 MG TAB PO SCH ×2 (07:58→21:16)
[2020-05-03] MEDS: PANTOPRAZOLE 40 MG/10 ML VIAL IVP SCH (07:58)
[2020-05-03] MEDS: ZINC SULFATE 220 MG CAP PO SCH (07:58)
[2020-05-03] MEDS: SODIUM CHLORIDE 0.9% 1,000 ML IV SCH ×2 (07:58→21:17)
[2020-05-03] MEDS: INSULIN ASPART (NovoLOG) 100 UNIT/ML VIAL SQ SCH ×2 (07:59→13:53)
[2020-05-03] MEDS: SERTRALINE 25 MG TAB PO SCH (08:00)
[2020-05-03 08:47] LABS: Basophils # (A) 0.01 X 10*3/uL (0.00-0.10); Basophils % (A) 0.3 %; Eosinophils # (A) 0 X 10*3/uL (0.04-0.35); Eosinophils % (A) 0 %; HCT 30.2 % (37.2-46.3); Lymphocytes # (A) 1.09 X 10*3/uL (0.90-5.00); MCH 31.4 pg (27.0-32.0); MCHC 33.1 g/dL (32.0-37.0); Mean Platelet Volume 11.6 fL (9.5-12.2); Monocytes # (A) 0.16 X 10*3/uL (0.20-1.00); Monocytes % (A) 4.4 %; Neutrophils # (A) 2.36 X 10*3/uL (1.80-7.70); Platelet Count 120 X 10*3/uL (140-440); RBC 3.18 X 10*6/uL (4.10-5.20); RDW 12.4 % (11.5-14.5); WBC 3.63 X 10*3/uL (4.50-10.00)
[2020-05-03] MEDS: ALBUTEROL HFA INHALER INHALATION PRN ×3 (09:25→15:52)
[2020-05-03 09:26] LABS: African American GFR (CKD) 97.6 (60.0-200.0); Anion Gap 8.9 mmol/L (4.00-12.00); BUN/Creat Ratio 12.5 Ratio (12.00-20.00); Carbon Dioxide 26.1 mmol/L (21.6-31.8); Magnesium 1.6 mg/dL (1.5-2.4); Non-African American GFR(CKD) 84.2 (60.0-200.0); Potassium 3.6 mmol/L (3.5-5.5)
[2020-05-03] MEDS: SYMBICORT 80-4.5 MCG INHALER INHALATION SCH ×2 (09:26→21:35)
--- NOTE | 2020-05-03 12:07 | P.PN ---
Subjective Progress Note Date: 05/03/20 This is a 55-year-old female with past medical history of chronic intermittent asthma, diabetes mellitus, hyperlipidemia, hypothyroidism, and multiple other medical issues presented to the ER with worsening shortness of breath. Reports symptoms initiated on , flulike with chills, Friday slept all day and by the weekend worsening shortness of breath , fatigue and eventually presented to the ER. Denies cough .Denies nausea vomiting or diarrhea. Denies abdominal pain. Denies loss of taste or sense of smell. Denies being around anyone that had been sick or participating in group gatherings.denies chest pain, palpitations .On admission maintaining O2 sats in the high 90s on room air, respiratory rate 18-20 ,afebrile, vital signs stable. Labs on admission ,WBC 2.6, otherwise hematology anticoagulation panels, unremarkable. Sodium 128, potassium 4.2, chloride 90, carbon dioxide 26, BUN 11, creatinine 0.86. On admission glucose elevated at 385, currently down to mid 200s. Ferritin 125 ,Magnesium 1.4, CRP 6.1,, LDH 475, minimally elevated AST of 38-repeat labs in progress. Coronovirus detected. Chest x-ray reported no acute process. EKG reporting sinus rhythm with occasional PVC .IV fluids, Decadron, vitamin C, vitamin D, zinc initiated in the ER. 05/03/2020 maintained on covid regimen. Nonproductive cough.Complains of sore chest from coughing. Rad a fever of 103 at 0600. Blood Sugars better controlled. Maintaining O2 sats in the low 90s on room air. Sodium 133. Objective - Vital Signs Vital signs: Vital Signs Temp 99.3 F 05/03/20 09:47 Pulse 82 05/03/20 09:47 Resp 13 05/03/20 09:47 BP 113/56 05/03/20 09:47 Pulse Ox 92 L 05/03/20 09:47 Intake & Output 05/02/20 05/03/20 05/03/20 18:59 06:59 18:59 Weight 48.988 kg Other: Voiding Method Toilet Toilet # Voids 2 - Exam PHYSICAL EXAM: VITAL SIGNS: [As above] GENERAL: Sitting up in bed, no acute distress, tired appearing. HEENT: Conjunctivae normal. eyes normal. NECK: No JVD. No thyroid enlargement. No LNs CARDIOVASCULAR: S1, S2 regular. No murmur RESPIRATION: Breath sounds diminished in the bases. Scattered rhonchi, fine right basilar crackles. Positive expiratory wheezing. ABDOMEN: Soft, nontender . No guarding. no masses palpable. No ascites, No hepatosplenomegaly.Bowel sounds heard. LEGS: No edema. no swelling PSYCHIATRY: Alert and oriented X3, mood and affect normal. NERVOUS SYSTEM: Cranial N 2-12 grossly normal. Moves all 4 limbs. Diffuse weakness No focal deficits. Skin: Warm and dry, no rash - Labs CBC & Chem 7: 05/03/20 05:30 05/03/20 05:30 Labs: Abnormal Lab Results - Last 24 Hours (Table) 05/02/20 05/02/20 05/02/20 Range/Units 10:06 12:39 16:35 WBC (4.50-10.00) X 10*3/uL RBC (4.10-5.20) X 10*6/uL Hgb (12.0-15.0) g/dL Hct (37.2-46.3) % Plt Count (140-440) X 10*3/uL Monocytes # (0.20-1.00) X 10*3/uL Eosinophils # (0.04-0.35) X 10*3/uL Sodium (135-145) mmol/L Glucose (70-110) mg/dL POC Glucose (mg/dL) 414 H 287 H (75-99) mg/dL Hemoglobin A1c 8.2 H (4.0-6.0) % Calcium (8.7-10.3) mg/dL 05/02/20 05/03/20 05/03/20 Range/Units 19:54 05:30 05:30 WBC 3.63 L (4.50-10.00) X 10*3/uL RBC 3.18 L (4.10-5.20) X 10*6/uL Hgb 10.0 L (12.0-15.0) g/dL Hct 30.2 L (37.2-46.3) % Plt Count 120 L (140-440) X 10*3/uL Monocytes # 0.16 L (0.20-1.00) X 10*3/uL Eosinophils # 0 L (0.04-0.35) X 10*3/uL Sodium 133 L (135-145) mmol/L Glucose 160 H (70-110) mg/dL POC Glucose (mg/dL) 257 H (75-99) mg/dL Hemoglobin A1c (4.0-6.0) % Calcium 8.0 L (8.7-10.3) mg/dL 05/03/20 Range/Units 07:16 WBC (4.50-10.00) X 10*3/uL RBC (4.10-5.20) X 10*6/uL Hgb (12.0-15.0) g/dL Hct (37.2-46.3) % Plt Count (140-440) X 10*3/uL Monocytes # (0.20-1.00) X 10*3/uL Eosinophils # (0.04-0.35) X 10*3/uL Sodium (135-145) mmol/L Glucose (70-110) mg/dL POC Glucose (mg/dL) 100 H (75-99) mg/dL Hemoglobin A1c (4.0-6.0) % Calcium (8.7-10.3) mg/dL Microbiology - Last 24 Hours (Table) 05/01/20 13:04 Blood Culture - Preliminary Blood No Growth after 24 hours 05/01/20 13:04 Blood Culture - Preliminary Blood No Growth after 24 hours Assessment and Plan Assessment: Acute Covid-19 pneumonitis with possible underlying acute on chronic asthma exacerbation Hyponatremia Diabetes mellitus, with insulin pump, hyperglycemic present on admission, A1c pending. Hypothyroidism Hyperlipidemia Plan: Continue on current medication regime ,monitoring and symptomatic treatment. Blood cultures ordered. Pulmonary consulted, potential Remdesevir. Maintain on Covid regimen. Patient's family is supposed to bring up new cartridges for patient's insulin pump, otherwise sliding scale will need to be initiated-discussed with RN. The impression and plan of care has been dictated as directed. : I performed a history and examination of this patient, discussed the same with the dictator. I agree with the dictator's note ,documented as a scribe. Any additional findings or plans will be noted.
[2020-05-03 12:35] LABS: Glucose,Whole Blood 63 mg/dL (75-99)
[2020-05-03 12:35] LABS: Glucose,Whole Blood 74 mg/dL (75-99)
[2020-05-03] MEDS ORDERED: INSPUCOR MISCELLANE PRN (13:50)
[2020-05-03] MEDS ORDERED: INSULIN PUMP BASAL RATES 1 EACH MISC MISCELLANE PRN (13:50)
[2020-05-03] MEDS ORDERED: INSULIN ASPART (NovoLOG) 100 UNIT/ML VIAL SQ PRN (13:50)
[2020-05-03] MEDS ORDERED: INSULIN PUMP TARGET GLUCOSE 1 EACH MISC MISCELLANE PRN (13:50)
[2020-05-03] MEDS ORDERED: INSULIN PUMP ACTIVE INSULIN 1 EACH MISC MISCELLANE PRN (13:50)
[2020-05-03 15:13] VITALS: BMI 21.1
--- NOTE | 2020-05-03 16:06 | P.CNPUL ---
History of Present Illness Consult date: 05/03/20 Requesting physician: Korey Jeronimo Reason for consult: dyspnea, cough, COPD, hypoxemia Chief complaint: Covid 19 infection History of present illness: This a 55-year-old white female patient with past medical history of hypertension, hyperlipidemia, diabetes mellitus type 2, chronic bronchial ast hma, mild intermittent, possible COPD, former smoker, hypothyroidism, presented to the emergency department on 05/01/2020 with complaints of cough, shortness of breath, and her symptoms noted about 4 days prior to presentation and is going to be a week ago tomorrow. Patient reported some nausea and the one episode of vomiting, overall decreased appetite, but no abdominal pain, or diarrhea. Jasmyne ent is reporting significant fatigue, and some chills. She stated that her ex boyfriend has been diagnosed with COVID 2 days ago. Initial chest x-ray in the emergency department showed no acute process 05/01/2020, blood work showed leukopenia, and lymphopenia, with white blood cell, 2.6, and lymphocyte count 0.7, hemoglobin was 12.7, d-dimer was negative at 0.34, patient's sodium level was low at 128, and chloride was 90, and the rest of the electrolytes and renal profile were unremarkable, her glucose was elevated at 385, magnesium was 1.4, AST was 38, ALT and alk phos were within normal limits, LDH was 475, CRP was 6.1, pro calcitonin level was negative at 0.05, Cong 19 PCR was positive, lactic acid was 1.5. Patient has been having fevers since admission, and in the last 24 hours her T-max was 10 3F, she feels like her breathing has worsened since she came in, she's been coughing, and overall her pulse ox has decreased to 91-92% on room air, from previously being at or above 95% on room air, and patient has not required supplemental oxygen during the stay, patient has been s tarted on IV Decadron 6 mg daily, on vitamins CT and zinc, and prophylactic dose of Lovenox 40 mg daily, despite this treatment patient feels like it's harder for her to breathe, repeat chest x-ray is pending. Today's labs have been reviewed, showing red blood cell, 3.63, hemoglobin is 10, no d-dimer or follow- up inflammatory markers were drawn today. We were asked to see the patient for worsening dyspnea, cough with acute Covid 19 infection Review of Systems All systems: negative Constitutional: Reports fatigue, Reports fever, Reports poor appetite, Reports weakness, Denies chills Eyes: denies blurred vision, denies pain Ears, nose, mouth and throat: Denies headache, Denies sore throat Cardiovascular: Denies chest pain, Denies shortness of breath Respiratory: Reports cough, Reports dyspnea, Reports wheezing Gastrointestinal: Denies abdominal pain, Denies diarrhea, Denies nausea, Denies vomiting Genitourinary: Denies dysuria, Denies hematuria Musculoskeletal: Denies myalgias Integumentary: Denies pruritus, Denies rash Neurological: Denies numbness, Denies weakness Psychiatric: Denies anxiety, Denies depression Endocrine: Denies fatigue, Denies weight change Past Medical History Past Medical History: Asthma, Diabetes Mellitus, Eye Disorder, GERD/Reflux, Hyperlipidemia, Thyroid Disorder Additional Past Medical History / Comment(s): IDDM type II, insulin pump, occasional neuropathy bilateral legs, bilateral eye diabetic retinopathy, bronchitis, hypothyroid, chronic cervical and low back pain, DDD, mild scoliosis, anemia, diverticular disease History of Any Multi-Drug Resistant Organisms: None Reported Past Surgical History: Adenoidectomy, Section, Cholecystectomy, Hernia Repair, Hysterectomy, Orthopedic Surgery, Tonsillectomy, Tubal Ligation Additional Past Surgical History / Comment(s): Hiatal hernia repair, bilateral inguinal hernia repairs, surgery for pyloric stenosis as , sinus surgery x3, benign lipomas removed, EGD, colonoscopy, L vaginal lesion excision, R foot bunionectomy/cyst removed, bilateral wrist carpal tunnel releases. Past Anesthesia/Blood Transfusion Reactions: No Reported Reaction Smoking Status: Former smoker - Past Family History Mother Family Medical History: Cancer Additional Family Medical History / Comment(s): Mother had lung and colon cancer. Father Family Medical History: No Reported History Additional Family Medical History / Comment(s): Mother of "old age" at the age of 80yrs. Medications and Allergies Home Medications Medication Instructions Recorded Confirmed Type Levothyroxine Sodium [Synthroid] 75 mcg PO DAILY 12/19/14 05/01/20 History Sucralfate [Carafate] 1 gm PO BID-W/MEALS 12/19/14 05/01/20 History Albuterol Sulfate [Proair Hfa] 1 - 2 puff INHALATION RT-Q6H PRN 05/01/20 History Insulin Aspart (For Pump) [NovoLOG 0.01 unit SQ-PUMP CONTINUOUS 05/01/20 05/01/20 History (For Pump)] Montelukast [Singulair] 10 mg PO DAILY 05/01/20 05/01/20 History Pravastatin Sodium [Pravachol] 40 mg PO HS 05/01/20 05/01/20 History Sertraline [Zoloft] 12.5 mg PO DAILY 05/01/20 05/01/20 History Allergies Allergy/AdvReac Type Severity Reaction Status Date / Time erythromycin base Allergy Unknown Verified 05/01/20 13:42 Penicillins AdvReac Nausea & Verified 05/01/20 13:42 Vomiting PAIN MEDS AdvReac Nausea & Uncoded 05/01/20 13:42 Vomiting Physical Exam Vitals: Vital Signs Temp Pulse Resp BP Pulse Ox 05/03/20 09:47 99.3 F 82 13 113/56 92 L 05/03/20 06:10 99.9 F H 05/03/20 06:06 103.0 F H 80 18 128/62 91 L 05/03/20 02:00 98.8 F 83 18 157/68 96 05/02/20 22:48 99.8 F H 68 18 129/60 95 05/02/20 18:13 101.5 F H 83 18 151/60 95 Intake and Output 05/03/20 05/03/20 05/03/20 06:59 14:59 22:59 Other: Voiding Method Toilet # Voids 2 Weight 48.988 kg GENERAL EXAM: Alert, very pleasant, 55-year-old white female, on room air, with a pulse ox of 91-92%, his congested cough in no apparent distress. HEAD: Normocephalic/atraumatic. EYES: Normal reaction of pupils, equal size. Conjunctiva pink, sclera white. NOSE: Clear with pink turbinates. THROAT: No erythema or exudates. NECK: No masses, no JVD, no thyroid enlargement, no adenopathy. CHEST: No chest wall deformity. Symmetrical expansion. LUNGS: Equal air entry with diffuse wheezes CVS: Regular rate and rhythm, normal S1 and S2, no gallops, no murmurs, no rubs ABDOMEN: Soft, nontender. No hepatosplenomegaly, normal bowel sounds, no guarding or rigidity. EXTREMITIES: No clubbing, no edema, no cyanosis, 2+ pulses and upper and lower extremities. MUSCULOSKELETAL: Muscle strength and tone normal. SPINE: No scoliosis or deformity SKIN: No rashes CENTRAL NERVOUS SYSTEM: Alert and oriented -3. No focal deficits, tone is normal in all 4 extremities. PSYCHIATRIC: Alert and oriented -3. Appropriate affect. Intact judgment and insight. Results - Laboratory Findings CBC and BMP: 05/03/20 05:30 05/03/20 05:30 PT/INR, D-dimer PT 9.8 sec (9.0-12.0) 05/01/20 13:04 INR 0.9 (<1.2) 05/01/20 13:04 D-Dimer 0.34 mg/L FEU (<0.60) 05/01/20 13:04 Abnormal lab findings: Abnormal Labs 05/01/20 05/01/20 05/01/20 13:04 13:04 13:04 WBC 2.6 L RBC Hgb Hct Plt Count Lymphocytes # (Manual) 0.78 L Monocytes # Eosinophils # Sodium 128 L Chloride 90 L Glucose 385 H POC Glucose (mg/dL) Hemoglobin A1c Calcium Magnesium 1.4 L AST 38 H Coronavirus (PCR) Detected A 05/01/20 05/01/20 05/02/20 17:31 21:25 08:21 WBC RBC Hgb Hct Plt Count Lymphocytes # (Manual) Monocytes # Eosinophils # Sodium Chloride Glucose POC Glucose (mg/dL) 254 H 276 H 276 H Hemoglobin A1c Calcium Magnesium AST Coronavirus (PCR) 05/02/20 05/02/20 05/02/20 10:06 10:06 10:06 WBC RBC 3.62 L Hgb Hct Plt Count 141 L Lymphocytes # (Manual) Monocytes # Eosinophils # Sodium 130 L Chloride Glucose 358 H POC Glucose (mg/dL) Hemoglobin A1c 8.2 H Calcium Magnesium 1.5 L AST Coronavirus (PCR) 05/02/20 05/02/20 05/02/20 12:39 16:35 19:54 WBC RBC Hgb Hct Plt Count Lymphocytes # (Manual) Monocytes # Eosinophils # Sodium Chloride Glucose POC Glucose (mg/dL) 414 H 287 H 257 H Hemoglobin A1c Calcium Magnesium AST Coronavirus (PCR) 05/03/20 05/03/20 05/03/20 05:30 05:30 07:16 WBC 3.63 L RBC 3.18 L Hgb 10.0 L Hct 30.2 L Plt Count 120 L Lymphocytes # (Manual) Monocytes # 0.16 L Eosinophils # 0 L Sodium 133 L Chloride Glucose 160 H POC Glucose (mg/dL) 100 H Hemoglobin A1c Calcium 8.0 L Magnesium AST Coronavirus (PCR) 05/03/20 05/03/20 12:14 12:34 WBC RBC Hgb Hct Plt Count Lymphocytes # (Manual) Monocytes # Eosinophils # Sodium Chloride Glucose POC Glucose (mg/dL) 63 L 74 L Hemoglobin A1c Calcium Magnesium AST Coronavirus (PCR) - Diagnostic Findings Chest x-ray: report reviewed Assessment and Plan Plan: Assessment: #1. Acute COVID 19 infection, without clear evidence of COVID 19 pneumonia, patient is on room air, onset of symptoms was 6 days ago #2. Acute exacerbation of COPD #3. Hyponatremia likely hypovolemic #4. History of chronic asthma, mild intermittent #5. Diabetes mellitus type 2 #6. Hypertension #7. Hyperlipidemia #8. Hypothyroidism Plan: Repeat chest x-ray has been reviewed with Dr. Bryan, no clear evidence of pneumonia noted, patient is on room air, sounds congestive bronchospastic, will switch her Decadron to IV Solu-Medrol 60 mg every 6 hours, continue Symbicort, albuterol, continue vitamin cocktail, continue prophylactic anticoagulation, no Remdesivir at this time without clear evidence of pneumonia. We'll continue standard care. Continue to monitor for any worsening oxygenation, or dyspnea. We will follow. We'll obtain follow-up inflammatory markers and d-dimer I performed a history & physical examination of the patient and discussed their management with my nurse practitioner, Shantal Tejada. I reviewed the nurse practitioner's note and agree with the documented findings and plan of care. L roman sounds are positive for diffuse wheezes throughout the lung marcum. The findings and the impression was discussed with the patient. I attest to the documentation by the nurse practitioner. Time with Patient: Greater than 30
--- NOTE | 2020-05-03 16:18 | XR ---
EXAMINATION TYPE: XR chest 1V portable DATE OF EXAM: 05/03/2020 HISTORY: Shortness of breath. COMPARISON: 05/01/2020 TECHNIQUE: Single view of the chest is submitted. FINDINGS: Demonstrated are scattered senescent parenchymal change. Patchy right lower lobe infiltrate may reflect developin pneumonia. Correlate clinically and pro robert studies are recommended. The heart is stable. Hilar and mediastinal structures are within normal limits. Degenerative changes are seen of the dorsal spine. IMPRESSION: 1. Patchy right lower lobe infiltrate may reflect developin pneumonia. Correlate clinically and progress studies are recommended.
[2020-05-03 16:25] LABS: C Reactive Protein 15.8 mg/L (<10.0)
[2020-05-03 17:32] LABS: Glucose,Whole Blood 59 mg/dL (75-99)
[2020-05-03] MEDS: INSULIN PUMP MEAL BOLUS 1 UNIT MISC MISCELLANE SCH ×2 (17:33→21:21)
[2020-05-03] MEDS: methylPREDNISolone SOD SUCCI 125 MG/2 ML VIAL IV SCH (17:41)
[2020-05-03 17:49] LABS: Glucose,Whole Blood 56 mg/dL (75-99)
[2020-05-03 18:13] LABS: Glucose,Whole Blood 115 mg/dL (75-99)
[2020-05-03 20:22] LABS: Glucose,Whole Blood 180 mg/dL (75-99)
[2020-05-03] MEDS: MONTELUKAST 10 MG TAB PO SCH (21:17)
[2020-05-03] MEDS: PRAVASTATIN SODIUM 40 MG TAB PO SCH (21:17)
[2020-05-04] MEDS: methylPREDNISolone SOD SUCCI 125 MG/2 ML VIAL IV SCH ×2 (00:49→05:31)
[2020-05-04 03:06] VITALS: RESP 17
[2020-05-04] MEDS: LEVOTHYROXINE 75 MCG TAB PO SCH (05:31)
[2020-05-04 05:58] VITALS: BP 149/75; PULSE 67; TEMP 98.8
[2020-05-04 06:59] LABS: Glucose,Whole Blood 263 mg/dL (75-99)
[2020-05-04] MEDS: INSULIN DETEMIR (LEVEMIR) 100 UNIT/ML SYR SQ SCH (08:24)
[2020-05-04] MEDS: CHOLECALCIFEROL 25 MCG (1000 IU) TABLET PO SCH (08:35)
[2020-05-04] MEDS: ZINC SULFATE 220 MG CAP PO SCH (08:35)
[2020-05-04] MEDS: SUCRALFATE 1 GM TAB PO SCH (08:35)
[2020-05-04] MEDS: ASCORBIC ACID 500 MG TAB PO SCH (08:35)
[2020-05-04] MEDS: SERTRALINE 25 MG TAB PO SCH (08:35)
[2020-05-04] MEDS: PANTOPRAZOLE 40 MG/10 ML VIAL IVP SCH (08:36)
[2020-05-04] MEDS: INSULIN PUMP MEAL BOLUS 1 UNIT MISC MISCELLANE SCH (08:36)
[2020-05-04] MEDS: ENOXAPARIN 40 MG/0.4 ML SYRINGE SQ SCH (08:36)
[2020-05-04 09:08] LABS: C Reactive Protein 13.5 mg/L (<10.0)
[2020-05-04] MEDS: ALBUTEROL HFA INHALER INHALATION PRN (09:13)
[2020-05-04] MEDS: SYMBICORT 80-4.5 MCG INHALER INHALATION SCH (09:13)
--- NOTE | 2020-05-04 12:02 | P.DS ---
Providers Date of admission: 05/01/20 15:26 Expected date of discharge: 05/04/20 Attending physician: Korey Jeronimo Consults: 05/03/20 08:08 Consult Physician Urgent Consulting Provider: Esme Bryan Consult Reason/Comments: covid Do you want consulting provider notified?: Yes Primary care physician: Korey Jeronimo Hospital Course: Final Diagnoses: Acute Covid-19 pneumonitis with possible underlying acute on chronic asthma exacerbation, significantly improved Hyponatremia Diabetes mellitus, with insulin pump, hyperglycemic present on admission, A1c pending. Hypothyroidism Hyperlipidemia Hospital course:This is a 55-year-old female with past medical history of chronic intermittent asthma, diabetes mellitus, hyperlipidemia, hypothyroidism, and multiple other medical issues presented to the ER with worsening shortness of breath. Reports symptoms initiated on , flulike with chills, Friday slept all day and by the weekend worsening shortness of breath , fatigue and eventually presented to the ER. Denies cough .Denies nausea vomiting or diarrhea. Denies abdominal pain. Denies loss of taste or sense of smell. Denies being around anyone that had been sick or participating in group gatherings.denies chest pain, palpitations .On admission maintaining O2 sats in the high 90s on room air, respiratory rate 18-20 ,afebrile, vital signs stable. Labs on admission ,WBC 2.6, otherwise hematology anticoagulation panels, unremarkable. Sodium 128, potassium 4.2, chloride 90, carbon dioxide 26, BUN 11, creatinine 0.86. On admission glucose elevated at 385, currently down to mid 200s. Ferritin 125 ,Magnesium 1.4, CRP 6.1,, LDH 475, minimally elevated AST of 38-repeat labs in progress. Coronovirus detected. Chest x-ray reported no acute process. EKG reporting sinus rhythm with occasional PVC .IV fluids, Decadron, vitamin C, vitamin D, zinc initiated in the ER. 05/03/2020 maintained on covid regimen. Nonproductive cough.Complains of sore chest from coughing. Rad a fever of 103 at 0600. Blood Sugars better controlled. Maintaining O2 sats in the low 90s on room air. Sodium 133. Evaluated by pulmonary, steroids adjusted from Decadron to Solu-Medrol. No clear-cut pneumonia per pulmonary review of repeat x-ray. Significant clinical improvement. Patient is maintaining O2 sats in the 90s on room air. Denies chest pain, palpitations. Patient will be discharged home in a stable condition with guarded prognosis. Patient has been instructed to complete her 2 weeks of quarantine. Microbiology 05/01/20 13:04 Blood Blood Culture - Preliminary No Growth after 48 hours 05/01/20 13:04 Blood Blood Culture - Preliminary No Growth after 48 hours The impression and plan of care has been dictated as directed. : I performed a history and examination of this patient, discussed the same with the dictator. I agree with the dictator's note ,documented as a scribe. Any additional findings or plans will be noted. Patient Condition at Discharge: Stable Plan - Discharge Summary Discharge Rx Participant: No New Discharge Prescriptions: New predniSONE 10 mg PO DIRECTED #30 tab Cholecalciferol [Vitamin D3 (25 Mcg = 1000 Iu)] 125 mcg PO DAILY tablet Budesonide/Formoterol Fumarate [Symbicort 80-4.5 Mcg Inhaler] 2 puff INHALATION BID #1 inhaler Zinc Sulfate [Orazinc] 220 mg PO DAILY #30 cap Ascorbic Acid [Vitamin C] 500 mg PO BID tab Continue Sucralfate [Carafate] 1 gm PO BID-W/MEALS Levothyroxine Sodium [Synthroid] 75 mcg PO DAILY Montelukast [Singulair] 10 mg PO DAILY Sertraline [Zoloft] 12.5 mg PO DAILY Insulin Aspart (For Pump) [NovoLOG (For Pump)] 0.01 unit SQ-PUMP CONTINUOUS Pravastatin Sodium [Pravachol] 40 mg PO HS Albuterol Sulfate [Proair Hfa] 1 - 2 puff INHALATION RT-Q6H PRN PRN Reason: Shortness Of Breath Discharge Medication List Levothyroxine Sodium [Synthroid] 75 mcg PO DAILY 12/19/14 [History] Sucralfate [Carafate] 1 gm PO BID-W/MEALS 12/19/14 [History] Albuterol Sulfate [Proair Hfa] 1 - 2 puff INHALATION RT-Q6H PRN 05/01/20 [History] Insulin Aspart (For Pump) [NovoLOG (For Pump)] 0.01 unit SQ-PUMP CONTINUOUS 05/01/20 [History] Montelukast [Singulair] 10 mg PO DAILY 05/01/20 [History] Pravastatin Sodium [Pravachol] 40 mg PO HS 05/01/20 [History] Sertraline [Zoloft] 12.5 mg PO DAILY 05/01/20 [History] Ascorbic Acid [Vitamin C] 500 mg PO BID tab 05/04/20 [Rx] Budesonide/Formoterol Fumarate [Symbicort 80-4.5 Mcg Inhaler] 2 puff INHALATION BID #1 inhaler 05/04/20 [Rx] Cholecalciferol [Vitamin D3 (25 Mcg = 1000 Iu)] 125 mcg PO DAILY tablet 05/04/20 [Rx] Zinc Sulfate [Orazinc] 220 mg PO DAILY #30 cap 05/04/20 [Rx] predniSONE 10 mg PO DIRECTED #30 tab 05/04/20 [Rx] Follow up Appointment(s)/Referral(s): Korey Jeronimo DO [Primary Care Provider] - 05/10/20 9:10 am (The office would like to have this as a tele health appointment not in the office please call once you're discharged to give them your email address they can send you the link for the appointment. Thank you) Esme Bryan MD [STAFF PHYSICIAN] - 06/08/20 1:00 pm Patient Instructions/Handouts: Coronavirus Disease 2019 (COVID-19) Activity/Diet/Wound Care/Special Instructions: complete 2 week quarantine; one more week
== END 2020-05-04 10:21 | disposition home or self-care (01) | DRG 177 ==
LOC: EC 12:32 → 4SSUR 15:26
PROVIDERS: ADMIT Family Medicine; ATTEND Family Medicine
DX: U07.1 COVID-19 (principal); J12.82 Pneumonia due to coronavirus disease 2019; J45.21 Mild intermittent asthma with (acute) exacerbation; E87.1 Hypo-osmolality and hyponatremia; J44.0 Chronic obstructive pulmonary disease with (acute) lower respiratory infection; J44.1 Chronic obstructive pulmonary disease with (acute) exacerbation; E11.41 Type 2 diabetes mellitus with diabetic mononeuropathy; E11.319 Type 2 diabetes mellitus with unspecified diabetic retinopathy without macular edema; E11.65 Type 2 diabetes mellitus with hyperglycemia; Z79.4 Long term (current) use of insulin; E78.5 Hyperlipidemia, unspecified; E03.9 Hypothyroidism, unspecified; I49.3 Ventricular premature depolarization; R09.02 Hypoxemia; I10 Essential (primary) hypertension; E86.1 Hypovolemia; D64.9 Anemia, unspecified; K21.9 Gastro-esophageal reflux disease without esophagitis; K57.90 Diverticulosis of intestine, part unspecified, without perforation or abscess without bleeding; M50.30 Other cervical disc degeneration, unspecified cervical region; M54.5 Low back pain; Z79.890 Hormone replacement therapy; Z79.899 Other long term (current) drug therapy; Z96.41 Presence of insulin pump (external) (internal); Z90.89 Acquired absence of other organs; Z98.891 History of uterine scar from previous surgery; Z90.49 Acquired absence of other specified parts of digestive tract; Z87.19 Personal history of other diseases of the digestive system; Z90.710 Acquired absence of both cervix and uterus; Z98.51 Tubal ligation status; Z87.42 Personal history of other diseases of the female genital tract; Z86.19 Personal history of other infectious and parasitic diseases; Z87.738 Personal history of other specified (corrected) congenital malformations of digestive system; Z87.09 Personal history of other diseases of the respiratory system; Z87.39 Personal history of other diseases of the musculoskeletal system and connective tissue; Z87.891 Personal history of nicotine dependence; Z87.2 Personal history of diseases of the skin and subcutaneous tissue; Z98.890 Other specified postprocedural states; Z88.0 Allergy status to penicillin; Z80.0 Family history of malignant neoplasm of digestive organs; Z80.1 Family history of malignant neoplasm of trachea, bronchus and lung
CPT/HCPCS: 36415; 71045; 80048; 80053; 82728; 83036; 83605; 83615; 83735; 84145; 85025; 85027; 85379; 85610; 85730; 86140; 87040; 87635; 93005; 94640; 96361; 96365; 96372; 96375; 96376; 99285

== ENCOUNTER → 2020-06-08 | Outpatient (CLI) | payer MEDICARE, OTHER ==
[2020-06-08 15:46] LABS: African American GFR (CKD) >90 (>60 ml/min/1.73 sqM); Blood Urea Nitrogen 14 mg/dL (7-17); Non-African American GFR(CKD) >90 (>60 ml/min/1.73 sqM)
--- NOTE | 2020-06-08 16:24 | CT ---
EXAMINATION TYPE: CT angio chest DATE OF EXAM: 06/08/2020 4:08 PM COMPARISON: Chest x-ray May 03, 2020 HISTORY: Chest pain post covid x1 month ago. CT DLP: 105.3 mGycm Automated exposure control for dose reduction was used. CONTRAST: CTA scan of the thorax is performed with IV Contrast, patient injected with 57ml mL of Isovue 370, pu lmonary embolism protocol. MIP images are created and reviewed. FINDINGS: LUNGS: Mild to moderate linear scarring in the left lung base. Patchy areas of groundglass opacity re main present in the periphery of the right lower lobe with some lateral reticulation and scarring see n. Some additional patchy areas of groundglass opacity remain present in the right upper lobe. No ple ural effusion or pneumothorax identified. MEDIASTINUM: There is satisfactory enhancement of the pulmonary artery and its branches, there is no CT evidence for pulmonary embolism. There are no greater than 1 cm hilar or mediastinal lymph nodes. Prominent but subcentimeter left hilar lymph nodes. No pericardial effusion is seen. At least moder ate three-vessel coronary artery calcification is seen. Heart size upper limits of normal. OTHER: Underlying dextroconvex scoliosis centered mid thoracic spine. Cholecystectomy clips. IMPRESSION: No CT evidence for acute pulmonary embolism. Subtle multifocal areas of groundglass opaci ty remain present in the right lung could reflect residual or resolving covid-19 infectious change.
== END | disposition home or self-care (01) ==
LOC: RADCTMAIN 14:42
PROVIDERS: ATTEND Internal Medicine Critical Care Medicine
DX: R91.8 Other nonspecific abnormal finding of lung field (principal); Z86.16 Personal history of COVID-19
CPT/HCPCS: 82565; 84520; 71275; 36415; Q9967

== ENCOUNTER 2020-09-01 10:38 | Observation (INO) | payer MEDICARE, OTHER ==
[2020-09-01] MEDS ORDERED: methylPREDNISolone SOD SUCCI 125 MG/2 ML VIAL IV STA (10:58)
[2020-09-01] MEDS ORDERED: SODIUM CHLORIDE 0.9% 500 ML 500 ML IV STA (10:58)
[2020-09-01] MEDS ORDERED: IPRATROPIUM-ALBUTEROL 3 ML NEB INHALATION STA (10:58)
[2020-09-01] MEDS ORDERED: ACETAMINOPHEN TAB 500 MG TAB PO STA (11:51)
--- NOTE | 2020-09-01 11:54 | XR ---
EXAMINATION TYPE: XR chest 2V DATE OF EXAM: 09/01/2020 COMPARISON: Chest x-ray 05/03/2020 HISTORY: Difficulty breathing, fever and chills, cough TECHNIQUE: Frontal and lateral views of the chest are obtained. FINDINGS: There is improvement in aeration as compared to prior exam. Prominent lung volumes are not ed. There is an underlying scoliosis. No evident pneumothorax or pleural effusion. Cardiac mediastina l silhouette within normal limits accounting for technique. Surgical clips are present in the right u pper quadrant. IMPRESSION: No acute cardiopulmonary process.
[2020-09-01 11:55] LABS: ALT 19 U/L (4-34); AST 27 U/L (14-36); African American GFR (CKD) >90 (>60 ml/min/1.73 sqM); Albumin 4.6 g/dL (3.5-5.0); Alkaline Phosphatase 69 U/L (38-126); Anion Gap 8 mmol/L; Blood Urea Nitrogen 12 mg/dL (7-17); Calcium 9.7 mg/dL (8.4-10.2); Carbon Dioxide 28 mmol/L (22-30); Chloride 95 mmol/L (98-107); Glucose 303 mg/dL (74-99); Non-African American GFR(CKD) >90 (>60 ml/min/1.73 sqM); Potassium 4.6 mmol/L (3.5-5.1); Sodium 131 mmol/L (137-145); Total Bilirubin 0.3 mg/dL (0.2-1.3); Total Protein 7.1 g/dL (6.3-8.2)
--- NOTE | 2020-09-01 11:55 | ED ---
SOB HPI - General Chief Complaint: Shortness of Breath Stated Complaint: Cough, SOB Time Seen by Provider: 09/01/20 10:52 Source: patient, RN notes reviewed Mode of arrival: ambulatory Limitations: no limitations - History of Present Illness Initial Comments: This a 55-year-old female presents emergency Department chief complaint of cough congestion shortness breath. Patient states started last weekend and has worsened. Patient saw PCP who gave her shot of steroids, antibiotics. She was not discharged on any oral steroids or antibiotics. She states she's been using here with no relief. Patient states she is a smoker years ago. Patient states she also had Chai didn't April. Patient is followed by pulmonary. Patient denies any nausea vomiting diarrhea constipation no sick contacts. - Related Data Home Medications Medication Instructions Recorded Confirmed Levothyroxine Sodium [Synthroid] 75 mcg PO DAILY 12/19/14 09/01/20 Sucralfate [Carafate] 1 gm PO AC-BID 12/19/14 09/01/20 Albuterol Sulfate [Proair Hfa] 2 puff INHALATION RT-QID PRN 05/01/20 09/01/20 Insulin Aspart (For Pump) [NovoLOG 0.01 unit SQ-PUMP CONTINUOUS 05/01/20 09/01/20 (For Pump)] Montelukast [Singulair] 10 mg PO DAILY 05/01/20 09/01/20 Pravastatin Sodium [Pravachol] 40 mg PO HS 05/01/20 09/01/20 Sertraline [Zoloft] 12.5 mg PO DAILY 05/01/20 09/01/20 Multivitamins, Thera [Multivitamin 1 tab PO DAILY 09/01/20 09/01/20 (formulary)] Omeprazole 40 mg PO DAILY 09/01/20 09/01/20 Allergies Allergy/AdvReac Type Severity Reaction Status Date / Time codeine AdvReac Nausea & Verified 09/01/20 11:46 Vomiting erythromycin base AdvReac Nausea & Verified 09/01/20 11:46 Vomiting Penicillins AdvReac Nausea & Verified 09/01/20 11:46 Vomiting PAIN MEDS AdvReac Nausea & Uncoded 09/01/20 11:46 Vomiting Review of Systems ROS Statement: Those systems with pertinent positive or pertinent negative responses have been documented in the HPI. ROS Other: All systems not noted in ROS Statement are negative. Past Medical History Past Medical History: Asthma, Diabetes Mellitus, Eye Disorder, GERD/Reflux, Hyperlipidemia, Thyroid Disorder Additional Past Medical History / Comment(s): IDDM type II, insulin pump, occasi onal neuropathy bilateral legs, bilateral eye diabetic retinopathy, bronchitis, hypothyroid, chronic cervical and low back pain, DDD, mild scoliosis, anemia, diverticular disease History of Any Multi-Drug Resistant Organisms: None Reported Past Surgical History: Adenoidectomy, Section, Cholecystectomy, Hernia Repair, Hysterectomy, Orthopedic Surgery, Tonsillectomy, Tubal Ligation Additional Past Surgical History / Comment(s): Hiatal hernia repair, bilateral inguinal hernia repairs, surgery for pyloric stenosis as infant, sinus surgery x3, benign lipomas removed, EGD, colonoscopy, L vaginal lesion excision, R foot bunionectomy/cyst removed, bilateral wrist carpal tunnel releases. Past Anesthesia/Blood Transfusion Reactions: No Reported Reaction Past Psychological History: No Psychological Hx Reported Smoking Status: Former smoker Past Alcohol Use History: None Reported Past Drug Use History: None Reported - Past Family History Mother Family Medical History: Cancer Additional Family Medical History / Comment(s): Mother had lung and colon cancer. Father Family Medical History: No Reported History Additional Family Medical History / Comment(s): Mother of "old age" at the age of 80yrs. General Exam Limitations: no limitations General appearance: alert, in no apparent distress Head exam: Present: atraumatic, normocephalic, normal inspection ENT exam: Present: normal exam, mucous membranes moist Neck exam: Present: full ROM. Absent: tenderness, meningismus, lymphadenopathy Respiratory exam: Present: wheezes, rhonchi. Absent: normal lung sounds bilaterally, respiratory distress, rales, stridor Cardiovascular Exam: Present: regular rate, normal rhythm, normal heart sounds. Absent: systolic murmur, diastolic murmur, rubs, gallop, clicks Back exam: Absent: CVA tenderness (R), CVA tenderness (L) Skin exam: Present: warm, dry, intact, normal color. Absent: rash Course Vital Signs 09/01/20 09/01/20 09/01/20 10:45 11:25 11:30 Temperature 100.5 F H Pulse Rate 103 H Respiratory 22 Rate Blood Pressure 125/73 O2 Sat by Pulse 97 95 96 Oximetry 09/01/20 09/01/20 09/01/20 12:00 12:30 12:40 Temperature Pulse Rate 75 83 77 Respiratory 20 20 Rate Blood Pressure 132/63 130/64 O2 Sat by Pulse 93 L 97 Oximetry 09/01/20 12:52 Temperature Pulse Rate 79 Respiratory Rate Blood Pressure O2 Sat by Pulse Oximetry Medical Decision Making - Medical Decision Making Chest x-ray does not reveal evidence of pneumonia. Patient is febrile, mild hyperglycemia patient be admitted for COPD exacerbation. - Lab Data Result diagrams: 09/01/20 11:23 09/01/20 11:23 Lab Results 09/01/20 09/01/20 09/01/20 Range/Units 11:23 11:23 11:23 WBC 3.8 (3.8-10.6) k/uL RBC 3.73 L (3.80-5.40) m/uL Hgb 12.2 (11.4-16.0) gm/dL Hct 36.8 (34.0-46.0) % MCV 98.5 (80.0-100.0) fL MCH 32.6 (25.0-35.0) pg MCHC 33.1 (31.0-37.0) g/dL RDW 13.2 (11.5-15.5) % Plt Count 214 (150-450) k/uL MPV 8.1 Neutrophils % (Manual) 66 % Lymphocytes % (Manual) 22 % Monocytes % (Manual) 10 % Eosinophils % (Manual) 1 % Basophils % (Manual) 1 % Neutrophils # (Manual) 2.51 (1.3-7.7) k/uL Lymphocytes # (Manual) 0.84 L (1.0-4.8) k/uL Monocytes # (Manual) 0.38 (0-1.0) k/uL Eosinophils # (Manual) 0.04 (0-0.7) k/uL Basophils # (Manual) 0.04 (0-0.2) k/uL Nucleated RBCs 0 (0-0) /100 WBC Manual Slide Review Performed RBC Morphology Normal PT 10.0 (9.0-12.0) sec INR 0.9 (<1.2) APTT 24.5 (22.0-30.0) sec Sodium 131 L (137-145) mmol/L Potassium 4.6 (3.5-5.1) mmol/L Chloride 95 L (98-107) mmol/L Carbon Dioxide 28 (22-30) mmol/L Anion Gap 8 mmol/L BUN 12 (7-17) mg/dL Creatinine 0.71 (0.52-1.04) mg/dL Est GFR (CKD-EPI)AfAm >90 (>60 ml/min/1.73 sqM) Est GFR (CKD-EPI)NonAf >90 (>60 ml/min/1.73 sqM) Glucose 303 H (74-99) mg/dL Plasma Lactic Acid Romie (0.7-2.0) mmol/L Calcium 9.7 (8.4-10.2) mg/dL Total Bilirubin 0.3 (0.2-1.3) mg/dL AST 27 (14-36) U/L ALT 19 (4-34) U/L Alkaline Phosphatase 69 (38-126) U/L Troponin I (0.000-0.034) ng/mL NT-Pro-B Natriuret Pep pg/mL Total Protein 7.1 (6.3-8.2) g/dL Albumin 4.6 (3.5-5.0) g/dL Coronavirus (PCR) (Not Detectd) 09/01/20 09/01/20 09/01/20 Range/Units 11:23 11:23 11:23 WBC (3.8-10.6) k/uL RBC (3.80-5.40) m/uL Hgb (11.4-16.0) gm/dL Hct (34.0-46.0) % MCV (80.0-100.0) fL MCH (25.0-35.0) pg MCHC (31.0-37.0) g/dL RDW (11.5-15.5) % Plt Count (150-450) k/uL MPV Neutrophils % (Manual) % Lymphocytes % (Manual) % Monocytes % (Manual) % Eosinophils % (Manual) % Basophils % (Manual) % Neutrophils # (Manual) (1.3-7.7) k/uL Lymphocytes # (Manual) (1.0-4.8) k/uL Monocytes # (Manual) (0-1.0) k/uL Eosinophils # (Manual) (0-0.7) k/uL Basophils # (Manual) (0-0.2) k/uL Nucleated RBCs (0-0) /100 WBC Manual Slide Review RBC Morphology PT (9.0-12.0) sec INR (<1.2) APTT (22.0-30.0) sec Sodium (137-145) mmol/L Potassium (3.5-5.1) mmol/L Chloride (98-107) mmol/L Carbon Dioxide (22-30) mmol/L Anion Gap mmol/L BUN (7-17) mg/dL Creatinine (0.52-1.04) mg/dL Est GFR (CKD-EPI)AfAm (>60 ml/min/1.73 sqM) Est GFR (CKD-EPI)NonAf (>60 ml/min/1.73 sqM) Glucose (74-99) mg/dL Plasma Lactic Acid Romie 1.1 (0.7-2.0) mmol/L Calcium (8.4-10.2) mg/dL Total Bilirubin (0.2-1.3) mg/dL AST (14-36) U/L ALT (4-34) U/L Alkaline Phosphatase (38-126) U/L Troponin I <0.012 (0.000-0.034) ng/mL NT-Pro-B Natriuret Pep 176 pg/mL Total Protein (6.3-8.2) g/dL Albumin (3.5-5.0) g/dL Coronavirus (PCR) (Not Detectd) 09/01/20 Range/Units 11:30 WBC (3.8-10.6) k/uL RBC (3.80-5.40) m/uL Hgb (11.4-16.0) gm/dL Hct (34.0-46.0) % MCV (80.0-100.0) fL MCH (25.0-35.0) pg MCHC (31.0-37.0) g/dL RDW (11.5-15.5) % Plt Count (150-450) k/uL MPV Neutrophils % (Manual) % Lymphocytes % (Manual) % Monocytes % (Manual) % Eosinophils % (Manual) % Basophils % (Manual) % Neutrophils # (Manual) (1.3-7.7) k/uL Lymphocytes # (Manual) (1.0-4.8) k/uL Monocytes # (Manual) (0-1.0) k/uL Eosinophils # (Manual) (0-0.7) k/uL Basophils # (Manual) (0-0.2) k/uL Nucleated RBCs (0-0) /100 WBC Manual Slide Review RBC Morphology PT (9.0-12.0) sec INR (<1.2) APTT (22.0-30.0) sec Sodium (137-145) mmol/L Potassium (3.5-5.1) mmol/L Chloride (98-107) mmol/L Carbon Dioxide (22-30) mmol/L Anion Gap mmol/L BUN (7-17) mg/dL Creatinine (0.52-1.04) mg/dL Est GFR (CKD-EPI)AfAm (>60 ml/min/1.73 sqM) Est GFR (CKD-EPI)NonAf (>60 ml/min/1.73 sqM) Glucose (74-99) mg/dL Plasma Lactic Acid Romie (0.7-2.0) mmol/L Calcium (8.4-10.2) mg/dL Total Bilirubin (0.2-1.3) mg/dL AST (14-36) U/L ALT (4-34) U/L Alkaline Phosphatase (38-126) U/L Troponin I (0.000-0.034) ng/mL NT-Pro-B Natriuret Pep pg/mL Total Protein (6.3-8.2) g/dL Albumin (3.5-5.0) g/dL Coronavirus (PCR) Not Detected (Not Detectd) Disposition Clinical Impression: COPD exacerbation Disposition: ADMITTED IP TO THIS [facility] Condition: Fair Referrals: Korey Jeronimo DO [Primary Care Provider] - 1-2 days
[2020-09-01 11:56] LABS: HCT 36.8 % (34.0-46.0); HGB 12.2 gm/dL (11.4-16.0); MCH 32.6 pg (25.0-35.0); MCHC 33.1 g/dL (31.0-37.0); MCV 98.5 fL (80.0-100.0); Mean Platelet Volume 8.1; Platelet Count 214 k/uL (150-450); RBC 3.73 m/uL (3.80-5.40); RDW 13.2 % (11.5-15.5); WBC 3.8 k/uL (3.8-10.6)
[2020-09-01] MEDS ORDERED: INSULIN REGULAR 100 UNIT/ML VIAL (IV) IV ONE (12:10)
[2020-09-01 12:17] LABS: INR 0.9 (<1.2); Partial Thromboplastin Time 24.5 sec (22.0-30.0)
[2020-09-01 12:33] LABS: Basophils # (M) 0.04 k/uL (0-0.2); Eosinophils # (M) 0.04 k/uL (0-0.7); Lymphocytes # (M) 0.84 k/uL (1.0-4.8); Monocytes # (M) 0.38 k/uL (0-1.0); Neutrophils # (M) 2.51 k/uL (1.3-7.7); Neutrophils % (M) 66 %; Nucleated Red Blood Cells 0 /100 WBC (0-0); Total Cells Counted 100
[2020-09-01] MEDS ORDERED: ALBUTEROL NEBULIZED 2.5 MG/3 ML INHALATION PRN (13:25)
[2020-09-01 14:04] LABS: Glucose,Whole Blood 213 mg/dL (75-99)
[2020-09-01] MEDS: Insulin Aspart (For Pump) 100 UNIT/ML VIAL SQ-PUMP SCH (15:25)
--- NOTE | 2020-09-01 15:38 | P.CNPUL ---
History of Present Illness Consult date: 09/01/20 Requesting physician: Korey Jeronimo Reason for consult: dyspnea, cough, COPD, hypoxemia Chief complaint: Shortness of breath. History of present illness: Pulmonary consult dated 09/01/2020 55-year-old female with history of asthma, who presents to the emergency department on September 01, complaining of shortness of breath. The patient recently saw her primary care provider, and apparently received IM Rocephin, and I am Depo-Medrol, but that did not really seem to make things better. She was not sent home on any antibiotics or steroids. She comes in with complaints of increasing shortness of breath, chest congestion, cough, and phlegm production. She denied any fever or chills. There was no chest pain or chest discomfort. She does not see a lung doctor. She did smoke in the past for only a few years. She does carry with her diagnosis of asthma. It appears that her only medications for her asthma include albuterol, and Singulair. She does have a history in addition to asthma of hypothyroidism, diabetes, and hyperlipidemia. ALLERGIES include codeine, penicillin, pain medications, and erythromycin. White count 3.8, with a normal hemoglobin, hematocrit, and platelet count. S odium 131, potassium 4.6, chlorides 95, CO2 28, anion gap 8, BUN 12, and creatinine 0.71. The rest of her labs are okay. The patient did have a history of previous infection with coronavirus and apparently saw one of my partners in follow-up once in the office. Chest x-ray was normal. Review of Systems REVIEW OF SYSTEMS: CONSTITUTIONAL: [Negative.] NEUROLOGIC: [ Negative.] HEENT: [ Negative.] CARDIAC: [Negative.] PULMONARY: Shortness of breath, chest congestion, cough, wheezing, chest tightness, and occasional phlegm production. The patient hasn't been feeling well for about a week or so. GI: [Negative.] : [Negative.] RHEUMATOLOGIC: [ Negative.] IMMUNOLOGIC: [ Negative.] ENDOCRINE: [Negative. ] DERMATOLOGIC: [Negative.] Past Medical History Past Medical History: Asthma, Diabetes Mellitus, Eye Disorder, GERD/Reflux, Hyperlipidemia, Thyroid Disorder Additional Past Medical History / Comment(s): IDDM type II, insulin pump, occasional neuropathy bilateral legs, bilateral eye diabetic retinopathy, bronchitis, hypothyroid, chronic cervical and low back pain, DDD, mild scoliosis, anemia, diverticular disease History of Any Multi-Drug Resistant Organisms: None Reported Past Surgical History: Adenoidectomy, Section, Cholecystectomy, Hernia Repair, Hysterectomy, Orthopedic Surgery, Tonsillectomy, Tubal Ligation Additional Past Surgical History / Comment(s): Hiatal hernia repair, bilateral inguinal hernia repairs, surgery for pyloric stenosis as , sinus surgery x3, benign lipomas removed, EGD, colonoscopy, L vaginal lesion excision, R foot bunionectomy/cyst removed, bilateral wrist carpal tunnel releases. Past Anesthesia/Blood Transfusion Reactions: No Reported Reaction Past Psychological History: No Psychological Hx Reported Smoking Status: Former smoker Past Alcohol Use History: None Reported Past Drug Use History: None Reported - Past Family History Mother Family Medical History: Cancer Additional Family Medical History / Comment(s): Mother had lung and colon cancer. Father Family Medical History: No Reported History Additional Family Medical History / Comment(s): Mother of "old age" at the age of 80yrs. Medications and Allergies Home Medications Medication Instructions Recorded Confirmed Type Levothyroxine Sodium [Synthroid] 75 mcg PO DAILY 12/19/14 09/01/20 History Sucralfate [Carafate] 1 gm PO AC-BID 12/19/14 09/01/20 History Albuterol Sulfate [Proair Hfa] 2 puff INHALATION RT-QID PRN 05/01/20 09/01/20 History Insulin Aspart (For Pump) [NovoLOG 0.01 unit SQ-PUMP CONTINUOUS 05/01/20 09/01/20 History (For Pump)] Montelukast [Singulair] 10 mg PO DAILY 05/01/20 09/01/20 History Pravastatin Sodium [Pravachol] 40 mg PO HS 05/01/20 09/01/20 History Sertraline [Zoloft] 12.5 mg PO DAILY 05/01/20 09/01/20 History Multivitamins, Thera [Multivitamin 1 tab PO DAILY 09/01/20 09/01/20 History (formulary)] Omeprazole 40 mg PO DAILY 09/01/20 09/01/20 History Allergies Allergy/AdvReac Type Severity Reaction Status Date / Time codeine AdvReac Nausea & Verified 09/01/20 11:46 Vomiting erythromycin base AdvReac Nausea & Verified 09/01/20 11:46 Vomiting Penicillins AdvReac Nausea & Verified 09/01/20 11:46 Vomiting PAIN MEDS AdvReac Nausea & Uncoded 09/01/20 11:46 Vomiting Physical Exam Osteopathic Statement: *. No significant issues noted on an osteopathic structural exam other than those noted in the History and Physical/Consult. Vitals: Vital Signs Temp Pulse Resp BP Pulse Ox 09/01/20 14:13 98.4 F 09/01/20 12:52 79 09/01/20 12:40 77 09/01/20 12:30 83 20 130/64 97 09/01/20 12:00 75 20 132/63 93 L 09/01/20 11:30 96 09/01/20 11:25 95 09/01/20 10:45 100.5 F H 103 H 22 125/73 97 Intake and Output 09/01/20 09/01/20 09/01/20 06:59 14:59 22:59 Other: Weight 45.359 kg No acute distress, oriented 3. Currently on room air. The patient has a very wet congested cough. No conversational dyspnea or use of accessory muscles. No audible wheezing. HEENT examination is grossly unremarkable. Neck supple. Full range of motion. No adenopathy thyromegaly or neck vein distention. Cardiovascular examination reveals regular rhythm rate. S1-S2 normal. No S3 or S4. No discernible murmur noted. Heart sounds are distant. Heart rate 83 bpm. Lungs reveal coarse bilateral rhonchi and expiratory wheezes. Breath sounds are equal bilaterally but diminished throughout. There are no crackles. Abdomen soft bowel sounds are heard. No masses or tenderness. Extremities are intact. No cyanosis clubbing or edema. Skin is without rash or lesion. Neurologic examination is brief but nonfocal. Results - Laboratory Findings CBC and BMP: 09/01/20 11:23 09/01/20 11:23 PT/INR, D-dimer PT 10.0 sec (9.0-12.0) 09/01/20 11:23 INR 0.9 (<1.2) 09/01/20 11:23 Abnormal lab findings: Abnormal Labs 09/01/20 09/01/20 09/01/20 11:23 11:23 14:02 RBC 3.73 L Lymphocytes # (Manual) 0.84 L Sodium 131 L Chloride 95 L Glucose 303 H POC Glucose (mg/dL) 213 H - Diagnostic Findings Chest x-ray: image reviewed Assessment and Plan Assessment: Acute exacerbation of asthma, not complicated by pneumonia, but possibly by tracheobronchitis. History of hypothyroidism. History of gastroesophageal reflux disease. History of diabetes mellitus, with diabetic neuropathy. History of hyperlipidemia. History of diverticular disease. Degenerative disc disease. Plan: Plan dated 09/01/2020. The patient will be admitted to the hospital. We'll make sure she gets appropriate medications clearing DuoNeb, Pulmicort, formoterol, and Solu-Medrol. She should also benefit from an oral antibiotic. Additional recommendations and suggestions are forthcoming. Prognosis is thought to be generally good. Chest x-ray was normal. Time with Patient: Greater than 30
[2020-09-01 16:13] LABS: Glucose,Whole Blood 350 mg/dL (75-99)
--- NOTE | 2020-09-01 16:15 | P.HPIM ---
History of Present Illness H&P Date: 09/01/20 Chief Complaint: Shortness of breath 55-year-old female presents emergency Department chief complaint of cough congestion shortness breath. Patient states started last weekend and has worsened. Patient saw PCP who gave her shot of steroids, antibiotics. She was not discharged on any oral steroids or antibiotics. She states she's been using here with no relief. Patient states she is a smoker years ago. Patient states she also had Chai didn't April. Patient is followed by pulmonary. Patient denies any nausea vomiting diarrhea constipation no sick contacts. Workup done in ED includes- White count 3.8, with a normal hemoglobin, hematocrit, and platelet count. Sodium 131, potassium 4.6, chlorides 95, CO2 28, anion gap 8, BUN 12, and creatinine 0.71. The rest of her labs are okay. The patient did have a history of previous infection with coronavirus. Chest x- ray was normal. Patient is admitted for further management of COPD exacerbation Review of Systems REVIEW OF SYSTEMS: CONSTITUTIONAL: No fever, no malaise, no fatigue. HEENT: No recent visual problems or hearing problems. Denied any sore throat. CARDIOVASCULAR: No chest pain, orthopnea, PND, no palpitations, no syncope. PULMONARY: No shortness of breath, no cough, no hemoptysis. GASTROINTESTINAL: No diarrhea, no nausea, no vomiting, no abdominal pain. NEUROLOGICAL: No headaches, no weakness, no numbness. HEMATOLOGICAL: Denies any bleeding or petechiae. GENITOURINARY: Denies any burning micturition, frequency, or urgency. MUSCULOSKELETAL/RHEUMATOLOGICAL: Denies any joint pain, swelling, or any muscle pain. ENDOCRINE: Denies any polyuria or polydipsia. The rest of the 14-point review of systems is negative. Past Medical History Past Medical History: Asthma, Diabetes Mellitus, Eye Disorder, GERD/Reflux, Hyperlipidemia, Thyroid Disorder Additional Past Medical History / Comment(s): IDDM type II, insulin pump, occasional neuropathy bilateral legs, bilateral eye diabetic retinopathy, bronchitis, hypothyroid, chronic cervical and low back pain, DDD, mild scoliosis, anemia, diverticular disease History of Any Multi-Drug Resistant Organisms: None Reported Past Surgical History: Adenoidectomy, Section, Cholecystectomy, Hernia Repair, Hysterectomy, Orthopedic Surgery, Tonsillectomy, Tubal Ligation Additional Past Surgical History / Comment(s): Hiatal hernia repair, bilateral inguinal hernia repairs, surgery for pyloric stenosis as infant, sinus surgery x3, benign lipomas removed, EGD, colonoscopy, L vaginal lesion excision, R foot bunionectomy/cyst removed, bilateral wrist carpal tunnel releases. Past Anesthesia/Blood Transfusion Reactions: No Reported Reaction Past Psychological History: No Psychological Hx Reported Smoking Status: Former smoker Past Alcohol Use History: None Reported Past Drug Use History: None Reported - Past Family History Mother Family Medical History: Cancer Additional Family Medical History / Comment(s): Mother had lung and colon cancer. Father Family Medical History: No Reported History Additional Family Medical History / Comment(s): Mother of "old age" at the age of 80yrs. Medications and Allergies Home Medications Medication Instructions Recorded Confirmed Type Levothyroxine Sodium [Synthroid] 75 mcg PO DAILY 12/19/14 09/01/20 History Sucralfate [Carafate] 1 gm PO AC-BID 12/19/14 09/01/20 History Albuterol Sulfate [Proair Hfa] 2 puff INHALATION RT-QID PRN 05/01/20 09/01/20 History Insulin Aspart (For Pump) [NovoLOG 0.01 unit SQ-PUMP CONTINUOUS 05/01/20 09/01/20 History (For Pump)] Montelukast [Singulair] 10 mg PO DAILY 05/01/20 09/01/20 History Pravastatin Sodium [Pravachol] 40 mg PO HS 05/01/20 09/01/20 History Sertraline [Zoloft] 12.5 mg PO DAILY 05/01/20 09/01/20 History Multivitamins, Thera [Multivitamin 1 tab PO DAILY 09/01/20 09/01/20 History (formulary)] Omeprazole 40 mg PO DAILY 09/01/20 09/01/20 History Allergies Allergy/AdvReac Type Severity Reaction Status Date / Time codeine AdvReac Nausea & Verified 09/01/20 11:46 Vomiting erythromycin base AdvReac Nausea & Verified 09/01/20 11:46 Vomiting Penicillins AdvReac Nausea & Verified 09/01/20 11:46 Vomiting PAIN MEDS AdvReac Nausea & Uncoded 09/01/20 11:46 Vomiting Physical Exam Vitals: Vital Signs Temp Pulse Resp BP Pulse Ox 09/01/20 14:13 98.4 F 09/01/20 12:52 79 09/01/20 12:40 77 09/01/20 12:30 83 20 130/64 97 09/01/20 12:00 75 20 132/63 93 L 09/01/20 11:30 96 09/01/20 11:25 95 09/01/20 10:45 100.5 F H 103 H 22 125/73 97 Intake and Output 09/01/20 09/01/20 09/01/20 06:59 14:59 22:59 Other: Weight 45.359 kg - Constitutional General appearance: Present: average body habitus, cooperative, no acute distress - EENT Eyes: Present: anicteric sclerae, EOMI, PERRLA, normal appearance ENT: Present: hearing grossly normal, normal oropharynx Ears: bilateral: normal - Neck Neck: Present: normal ROM. Absent: lymphadenopathy, rigidity, thyromegaly Carotids: negative: bruit present Thyroid: bilateral: normal size, negative: enlarged, nodule - Respiratory Respiratory: bilateral: CTA, negative: rales, rhonchi, wheezing - Cardiovascular Rhythm: regular Heart sounds: normal: S1, S2 Abnormal Heart Sounds: Absent: systolic murmur, diastolic murmur - Gastrointestinal General gastrointestinal: Present: normal bowel sounds, soft. Absent: distended, organomegaly, tenderness - Genitourinary Genitourinary Comment(s): deferred - Integumentary Integumentary: Present: normal turgor. Absent: jaundiced, rash, ulcer - Neurologic Neurologic: Present: CNII-XII intact. Absent: focal deficits - Musculoskeletal Musculoskeletal: Present: gait normal, strength equal bilaterally - Psychiatric Psychiatric: Present: A&O x's 3, appropriate affect, intact judgment & insight Results CBC & Chem 7: 09/01/20 11:23 09/01/20 11:23 Labs: Abnormal Lab Results - Last 24 Hours (Table) 09/01/20 09/01/20 09/01/20 Range/Units 11:23 11:23 14:02 RBC 3.73 L (3.80-5.40) m/uL Lymphocytes # (Manual) 0.84 L (1.0-4.8) k/uL Sodium 131 L (137-145) mmol/L Chloride 95 L (98-107) mmol/L Glucose 303 H (74-99) mg/dL POC Glucose (mg/dL) 213 H (75-99) mg/dL Assessment and Plan Assessment: 1. Acute exacerbation of asthma; we will admit patient to medical floor and start patient on IV Solu-Medrol 60 mg every 6 hours along with DuoNeb and steroid nebulizer treatments; slow IV fluid hydration; continue home dose of Singulair 10 mg daily; consult pulmonary for further recommendations 2. Severe tracheobronchitis; doxycycline 100 mg IV every 12 hours. 3. Hyperglycemia without acidosis; order HbA1c; continue with basal along with high-intensity insulin sliding scale 4. Hypothyroidism; levothyroxin 75 MCG daily. 5. Diabetes mellitus, with diabetic neuropathy; patient has an insulin pump; we will continue basal insulin along with Accu-Cheks every before meals and at bedtime with insulin sliding scale. 6. Hyperlipidemia; Pravachol 40 mg by mouth daily at bedtime 7. Depression; Zoloft 12.5 mg daily 8. Gastroesophageal reflux disease; continue with home dose of omeprazole 40 mg daily and Carafate 1 g by mouth DVT prophylaxis; SCDs/subcu heparin CODE STATUS; full code
[2020-09-01] MEDS: methylPREDNISolone SOD SUCCI 125 MG/2 ML VIAL IV SCH (16:58)
[2020-09-01] MEDS: SUCRALFATE 1 GM TAB PO SCH (16:58)
[2020-09-01] MEDS: INSULIN ASPART (NovoLOG) 100 UNIT/ML VIAL SQ SCH ×2 (16:58→20:47)
[2020-09-01] MEDS: ACETAMINOPHEN TAB 500 MG TAB PO PRN (19:23)
[2020-09-01] MEDS: IPRATROPIUM-ALBUTEROL 3 ML NEB INHALATION SCH ×2 (19:26→19:28)
[2020-09-01 20:13] LABS: Glucose,Whole Blood 390 mg/dL (75-99)
[2020-09-01] MEDS: PRAVASTATIN SODIUM 40 MG TAB PO SCH (20:46)
[2020-09-01] MEDS: DOXYCYCLINE 100 MG in SODIUM CHLORIDE 0.9% 100 ML IVPB SCH (20:46)
[2020-09-02 02:02] LABS: Glucose,Whole Blood 266 mg/dL (75-99)
[2020-09-02] MEDS: ACETAMINOPHEN TAB 500 MG TAB PO PRN ×2 (02:15→19:55)
[2020-09-02] MEDS: methylPREDNISolone SOD SUCCI 125 MG/2 ML VIAL IV SCH ×5 (02:16→23:11)
[2020-09-02] MEDS: INSULIN ASPART (NovoLOG) 100 UNIT/ML VIAL SQ SCH ×6 (02:17→23:12)
[2020-09-02] MEDS ORDERED: KETOROLAC 15 MG/ML 1 ML VIAL IVP STA (02:49)
[2020-09-02] MEDS: guaiFENesin SYRUP 100MG/5ML 200 MG/10 ML CUP PO PRN ×3 (03:03→16:55)
[2020-09-02] MEDS: LEVOTHYROXINE 75 MCG TAB PO SCH (06:22)
[2020-09-02 07:07] LABS: Glucose,Whole Blood 349 mg/dL (75-99)
[2020-09-02] MEDS: SUCRALFATE 1 GM TAB PO SCH ×2 (07:16→17:12)
[2020-09-02] MEDS: PANTOPRAZOLE 40 MG TABLET PO SCH (07:16)
[2020-09-02] MEDS: MULTIVITAMINS, THERA 1 EACH TAB PO SCH (07:16)
[2020-09-02] MEDS: MONTELUKAST 10 MG TAB PO SCH (07:16)
[2020-09-02] MEDS: SERTRALINE 25 MG TAB PO SCH (07:16)
[2020-09-02] MEDS: IPRATROPIUM-ALBUTEROL 3 ML NEB INHALATION SCH ×4 (09:20→22:13)
[2020-09-02] MEDS: DOXYCYCLINE 100 MG in SODIUM CHLORIDE 0.9% 100 ML IVPB SCH (09:33)
[2020-09-02 12:19] LABS: Glucose,Whole Blood 504 mg/dL (75-99)
[2020-09-02 12:38] LABS: African American GFR (CKD) 84.6 (60.0-200.0); Anion Gap 10.3 mmol/L (4.00-12.00); BUN/Creat Ratio 15.56 Ratio (12.00-20.00); Calcium 9.6 mg/dL (8.7-10.3); Carbon Dioxide 24.7 mmol/L (21.6-31.8); Potassium 4.6 mmol/L (3.5-5.5)
--- NOTE | 2020-09-02 12:40 | P.PN ---
Subjective Progress Note Date: 09/02/20 Principal diagnosis: Shortness of breath and cough. Pulmonary consult dated 09/01/2020 55-year-old female with history of asthma, who presents to the emergency department on September 01, complaining of shortness of breath. The patient recently saw her primary care provider, and apparently received IM Rocephin, and I am Depo-Medrol, but that did not really seem to make things better. She was not sent home on any antibiotics or steroids. She comes in with complaints of increasing shortness of breath, chest congestion, cough, and phlegm production. She denied any fever or chills. There was no chest pain or chest discomfort. She does not see a lung doctor. She did smoke in the past for only a few years. She does carry with her diagnosis of asthma. It appears that her only medications for her asthma include albuterol, and Singulair. She does have a history in addition to asthma of hypothyroidism, diabetes, and hyperlipidemia. ALLERGIES include codeine, penicillin, pain medications, and erythromycin. White count 3.8, with a normal hemoglobin, hematocrit, and platelet count. Sodium 131, potassium 4.6, chlorides 95, CO2 28, anion gap 8, BUN 12, and creatinine 0.71. The rest of her labs are okay. The patient did have a history of previous infection with coronavirus and apparently saw one of my partners in follow-up once in the office. Chest x-ray was normal. Progress note dated 09/02/2020. This is a 75-year-old female that we saw yesterday in consultation. The patient was admitted with a diagnosis of asthma exacerbation. She's doing much better today but not completely back to baseline. She also has a history of hypothyroidism, gastroesophageal reflux disease, diabetes mellitus with diabetic neuropathy, hyperlipidemia, diverticular disease, and degenerative disc disease. No new labs today. The patient is feeling much better. She is much less short of breath. Her cough is much improved. She's not nearly as bronchospastic and she was yesterday. Yesterday, she said she wanted to go home today. I think she would benefit from one day more in the hospital. Objective - Vital Signs Vital signs: Vital Signs Temp 98.0 F 09/02/20 07:20 Pulse 80 09/02/20 09:30 Resp 18 09/02/20 08:00 BP 145/67 09/02/20 07:20 Pulse Ox 97 09/02/20 09:20 Intake & Output 09/01/20 09/02/20 09/02/20 18:59 06:59 18:59 Weight 45.359 kg Other: Voiding Method Toilet Toilet # Voids 1 - Exam No acute distress, oriented 3. Currently on room air. The patient has a very wet congested cough. No conversational dyspnea or use of accessory muscles. No audible wheezing. Room air saturation 97%. HEENT examination is grossly unremarkable. Neck supple. Full range of motion. No adenopathy thyromegaly or neck vein distention. Cardiovascular examination reveals regular rhythm rate. S1-S2 normal. No S3 or S4. No discernible murmur noted. Heart sounds are distant. Heart rate 80 bpm. Lungs reveal bilateral rhonchi and expiratory wheezes. Breath sounds are equal bilaterally. Breath sounds are improved. There are no crackles. Abdomen soft bowel sounds are heard. No masses or tenderness. Extremities are intact. No cyanosis clubbing or edema. Skin is without rash or lesion. Neurologic examination is brief but nonfocal. - Labs CBC & Chem 7: 09/01/20 11:23 09/01/20 11:23 Labs: Abnormal Lab Results - Last 24 Hours (Table) 09/01/20 09/01/20 09/01/20 Range/Units 11:23 14:02 16:12 Lymphocytes # (Manual) 0.84 L (1.0-4.8) k/uL POC Glucose (mg/dL) 213 H 350 H (75-99) mg/dL 09/01/20 09/02/20 09/02/20 Range/Units 20:12 02:00 07:05 Lymphocytes # (Manual) (1.0-4.8) k/uL POC Glucose (mg/dL) 390 H 266 H 349 H (75-99) mg/dL 09/02/20 Range/Units 12:12 Lymphocytes # (Manual) (1.0-4.8) k/uL POC Glucose (mg/dL) 504 H (75-99) mg/dL Assessment and Plan Assessment: Acute exacerbation of asthma, not complicated by pneumonia, but possibly by tracheobronchitis. History of hypothyroidism. History of gastroesophageal reflux disease. History of diabetes mellitus, with diabetic neuropathy. History of hyperlipidemia. History of diverticular disease. Degenerative disc disease. Plan: Plan dated 09/01/2020. The patient will be admitted to the hospital. We'll make sure she gets appropriate medications clearing DuoNeb, Pulmicort, formoterol, and Solu-Medrol. She should also benefit from an oral antibiotic. Additional recommendations and suggestions are forthcoming. Prognosis is thought to be generally good. Chest x-ray was normal. Plan dated 09/02/2020. The patient's doing much better. She could be considered for discharge today or tomorrow. We'll leave that up to the primary service. Currently, she is on d oxycycline, which is been given IV. It could be certainly given orally. In addition, she is on albuterol, DuoNeb nebs, Solu-Medrol, Singulair, as well as is her usual medications. We will continue to follow the patient and make recommendations where appropriate. Prognosis is guarded. Time with Patient: Less than 30
[2020-09-02 12:48] LABS: Basophils # (A) 0.01 X 10*3/uL (0.00-0.10); Basophils % (A) 0.1 %; Eosinophils # (A) 0 X 10*3/uL (0.04-0.35); Eosinophils % (A) 0 %; HCT 34.5 % (37.2-46.3); HGB 11.3 g/dL (12.0-15.0); Lymphocytes # (A) 0.51 X 10*3/uL (0.90-5.00); Lymphocytes % (A) 5.8 %; MCH 31.4 pg (27.0-32.0); MCHC 32.8 g/dL (32.0-37.0); MCV 95.8 fL (80.0-97.0); Mean Platelet Volume 11.7 fL (9.5-12.2); Monocytes # (A) 0.15 X 10*3/uL (0.20-1.00); Monocytes % (A) 1.7 %; Neutrophils # (A) 8.14 X 10*3/uL (1.80-7.70); Neutrophils % (A) 92.1 %; Platelet Count 207 X 10*3/uL (140-440); RDW 12.4 % (11.5-14.5); WBC 8.84 X 10*3/uL (4.50-10.00)
[2020-09-02 13:37] LABS: Glucose,Whole Blood 581 mg/dL (75-99)
[2020-09-02] MEDS ORDERED: INSULIN ASPART (NovoLOG) 100 UNIT/ML VIAL SQ ONE (13:45)
[2020-09-02] MEDS: Insulin Aspart (For Pump) 100 UNIT/ML VIAL SQ-PUMP SCH (15:04)
[2020-09-02 15:33] LABS: Glucose,Whole Blood 517 mg/dL (75-99)
[2020-09-02] MEDS ORDERED: INSULIN ASPART (NovoLOG) 100 UNIT/ML VIAL SQ SCH (16:15)
[2020-09-02 17:03] LABS: Glucose,Whole Blood 366 mg/dL (75-99)
[2020-09-02 19:48] LABS: Glucose,Whole Blood 310 mg/dL (75-99)
[2020-09-02] MEDS: DOXYCYCLINE 100 MG CAP PO SCH (19:56)
[2020-09-02] MEDS: PRAVASTATIN SODIUM 40 MG TAB PO SCH (19:56)
[2020-09-02] MEDS: SYMBICORT 160-4.5 MCG INHALER INHALATION SCH (22:13)
[2020-09-02] MEDS ORDERED: ALPRAZolam 0.25 MG TAB PO PRN (22:55)
[2020-09-02 23:05] LABS: Glucose,Whole Blood 224 mg/dL (75-99)
[2020-09-03 04:47] LABS: Glucose,Whole Blood 330 mg/dL (75-99)
[2020-09-03] MEDS: INSULIN ASPART (NovoLOG) 100 UNIT/ML VIAL SQ SCH ×4 (04:51→17:02)
[2020-09-03] MEDS: guaiFENesin SYRUP 100MG/5ML 200 MG/10 ML CUP PO PRN (05:54)
[2020-09-03] MEDS: LEVOTHYROXINE 75 MCG TAB PO SCH (05:55)
[2020-09-03] MEDS: methylPREDNISolone SOD SUCCI 125 MG/2 ML VIAL IV SCH ×2 (05:55→12:26)
[2020-09-03 06:51] LABS: Glucose,Whole Blood 233 mg/dL (75-99)
[2020-09-03] MEDS: SUCRALFATE 1 GM TAB PO SCH (07:20)
[2020-09-03] MEDS: MONTELUKAST 10 MG TAB PO SCH (07:20)
[2020-09-03] MEDS: MULTIVITAMINS, THERA 1 EACH TAB PO SCH (07:20)
[2020-09-03] MEDS: PANTOPRAZOLE 40 MG TABLET PO SCH (07:20)
[2020-09-03] MEDS: SERTRALINE 25 MG TAB PO SCH (07:20)
[2020-09-03] MEDS: DOXYCYCLINE 100 MG CAP PO SCH (07:20)
[2020-09-03] MEDS: SYMBICORT 160-4.5 MCG INHALER INHALATION SCH (08:50)
[2020-09-03] MEDS: IPRATROPIUM-ALBUTEROL 3 ML NEB INHALATION SCH ×3 (08:50→15:14)
--- NOTE | 2020-09-03 11:24 | P.PN ---
Subjective Progress Note Date: 09/03/20 Principal diagnosis: Shortness of breath and cough. Pulmonary consult dated 09/01/2020 55-year-old female with history of asthma, who presents to the emergency department on September 01, complaining of shortness of breath. The patient recently saw her primary care provider, and apparently received IM Rocephin, and I am Depo-Medrol, but that did not really seem to make things better. She was not sent home on any antibiotics or steroids. She comes in with complaints of increasing shortness of breath, chest congestion, cough, and phlegm production. She denied any fever or chills. There was no chest pain or chest discomfort. She does not see a lung doctor. She did smoke in the past for only a few years. She does carry with her diagnosis of asthma. It appears that her only medications for her asthma include albuterol, and Singulair. She does have a history in addition to asthma of hypothyroidism, diabetes, and hyperlipidemia. ALLERGIES include codeine, penicillin, pain medications, and erythromycin. White count 3.8, with a normal hemoglobin, hematocrit, and platelet count. Sodium 131, potassium 4.6, chlorides 95, CO2 28, anion gap 8, BUN 12, and creatinine 0.71. The rest of her labs are okay. The patient did have a history of previous infection with coronavirus and apparently saw one of my partners in follow-up once in the office. Chest x-ray was normal. Progress note dated 09/02/2020. This is a 75-year-old female that we saw yesterday in consultation. The patient was admitted with a diagnosis of asthma exacerbation. She's doing much better today but not completely back to baseline. She also has a history of hypothyroidism, gastroesophageal reflux disease, diabetes mellitus with diabetic neuropathy, hyperlipidemia, diverticular disease, and degenerative disc disease. No new labs today. The patient is feeling much better. She is much less short of breath. Her cough is much improved. She's not nearly as bronchospastic and she was yesterday. Yesterday, she said she wanted to go home today. I think she would benefit from one day more in the hospital. Progress note dated 09/03/2020. 75-year-old female who was admitted with a diagnosis of asthma exacerbation. He is doing much better, and would like to be discharged home today. I told her it would be up to her hospital doctor. She also has a history of hypothyroidism, g astroesophageal reflux disease, diabetes mellitus with diabetic neuropathy, hyperlipidemia, diverticular disease, and degenerative disc disease. She's feeling much better. Her shortness of breath, cough, wheezing, and chest tightness, are all improved. No new labs today. Objective - Vital Signs Vital signs: Vital Signs Temp 98.1 F 09/03/20 06:51 Pulse 92 09/03/20 09:09 Resp 16 09/03/20 06:51 BP 143/61 09/03/20 06:51 Pulse Ox 98 09/03/20 06:51 Intake & Output 09/02/20 09/03/20 09/03/20 18:59 06:59 18:59 Intake Total 200 Balance 200 Intake: Oral 200 Other: Voiding Method Toilet Toilet - Exam No acute distress, oriented 3. Currently on room air. The patient has a very wet congested cough. No conversational dyspnea or use of accessory muscles. No audible wheezing. Room air saturation 98%. HEENT examination is grossly unremarkable. Neck supple. Full range of motion. No adenopathy thyromegaly or neck vein distention. Cardiovascular examination reveals regular rhythm rate. S1-S2 normal. No S3 or S4. No discernible murmur noted. Heart sounds are distant. Heart rate 92 bpm. Lungs reveal bilateral rhonchi and expiratory wheezes. Breath sounds are equal bilaterally. Breath sounds are improved. There are no crackles. Abdomen soft bowel sounds are heard. No masses or tenderness. Extremities are intact. No cyanosis clubbing or edema. Skin is without rash or lesion. Neurologic examination is brief but nonfocal. - Labs CBC & Chem 7: 09/02/20 06:17 09/02/20 06:17 Labs: Abnormal Lab Results - Last 24 Hours (Table) 09/02/20 09/02/20 09/02/20 Range/Units 06:17 06:17 12:12 RBC 3.60 L (4.10-5.20) X 10*6/uL Hgb 11.3 L (12.0-15.0) g/dL Hct 34.5 L (37.2-46.3) % Neutrophils # 8.14 H (1.80-7.70) X 10*3/uL Lymphocytes # 0.51 L (0.90-5.00) X 10*3/uL Monocytes # 0.15 L (0.20-1.00) X 10*3/uL Eosinophils # 0 L (0.04-0.35) X 10*3/uL Glucose 322 H (70-110) mg/dL POC Glucose (mg/dL) 504 H (75-99) mg/dL 09/02/20 09/02/20 09/02/20 Range/Units 13:33 15:30 17:01 RBC (4.10-5.20) X 10*6/uL Hgb (12.0-15.0) g/dL Hct (37.2-46.3) % Neutrophils # (1.80-7.70) X 10*3/uL Lymphocytes # (0.90-5.00) X 10*3/uL Monocytes # (0.20-1.00) X 10*3/uL Eosinophils # (0.04-0.35) X 10*3/uL Glucose (70-110) mg/dL POC Glucose (mg/dL) 581 H 517 H 366 H (75-99) mg/dL 09/02/20 09/02/20 09/03/20 Range/Units 19:46 23:03 04:45 RBC (4.10-5.20) X 10*6/uL Hgb (12.0-15.0) g/dL Hct (37.2-46.3) % Neutrophils # (1.80-7.70) X 10*3/uL Lymphocytes # (0.90-5.00) X 10*3/uL Monocytes # (0.20-1.00) X 10*3/uL Eosinophils # (0.04-0.35) X 10*3/uL Glucose (70-110) mg/dL POC Glucose (mg/dL) 310 H 224 H 330 H (75-99) mg/dL 09/03/20 Range/Units 06:49 RBC (4.10-5.20) X 10*6/uL Hgb (12.0-15.0) g/dL Hct (37.2-46.3) % Neutrophils # (1.80-7.70) X 10*3/uL Lymphocytes # (0.90-5.00) X 10*3/uL Monocytes # (0.20-1.00) X 10*3/uL Eosinophils # (0.04-0.35) X 10*3/uL Glucose (70-110) mg/dL POC Glucose (mg/dL) 233 H (75-99) mg/dL Assessment and Plan Assessment: Acute exacerbation of asthma, not complicated by pneumonia, but possibly by tracheobronchitis. History of hypothyroidism. History of gastroesophageal reflux disease. History of diabetes mellitus, with diabetic neuropathy. History of hyperlipidemia. History of diverticular disease. Degenerative disc disease. Plan: Plan dated 09/01/2020. The patient will be admitted to the hospital. We'll make sure she gets appropri ate medications clearing DuoNeb, Pulmicort, formoterol, and Solu-Medrol. She should also benefit from an oral antibiotic. Additional recommendations and suggestions are forthcoming. Prognosis is thought to be generally good. Chest x-ray was normal. Plan dated 09/02/2020. The patient's doing much better. She could be considered for discharge today or tomorrow. We'll leave that up to the primary service. Currently, she is on doxycycline, which is been given IV. It could be certainly given orally. In addition, she is on albuterol, DuoNeb nebs, Solu-Medrol, Singulair, as well as is her usual medications. We will continue to follow the patient and make recommendations where appropriate. Prognosis is guarded. Plan dated 09/03/2020. The patient is doing much better. She could be considered for discharge home today. The patient should be discharged home on her usual medications, and a prednisone burst and taper. She should follow-up with her technical services analyst and our office. No additional recommendations are made. Prognosis is thought to be generally good. Time with Patient: Less than 30
[2020-09-03 12:16] LABS: Glucose,Whole Blood 434 mg/dL (75-99)
[2020-09-03] MEDS: Insulin Aspart (For Pump) 100 UNIT/ML VIAL SQ-PUMP SCH (13:25)
[2020-09-03 15:37] VITALS: BP 148/65; PULSE 88; RESP 18; TEMP 98.7
--- NOTE | 2020-09-03 16:31 | P.PN ---
Subjective Progress Note Date: 09/02/20 55-year-old female presents emergency Department chief complaint of cough congestion shortness breath. Patient states started last weekend and has worsened. Patient saw PCP who gave her shot of steroids, antibiotics. She was not discharged on any oral steroids or antibiotics. She states she's been using here with no relief. Patient states she is a smoker years ago. Patient states she also had Chai didn't April. Patient is followed by pulmonary. Patient denies any nausea vomiting diarrhea constipation no sick contacts. Workup done in ED includes- White count 3.8, with a normal hemoglobin, h ematocrit, and platelet count. Sodium 131, potassium 4.6, chlorides 95, CO2 28, anion gap 8, BUN 12, and creatinine 0.71. The rest of her labs are okay. The patient did have a history of previous infection with coronavirus. Chest x-ray was normal. Patient is admitted for further management of COPD exacerbation Patient has been evaluated by pulmonary service and is recommended to continue with current treatment for another 24 hours Objective - Vital Signs Vital signs: Vital Signs Temp 98.0 F 09/02/20 07:20 Pulse 80 09/02/20 13:29 Resp 18 09/02/20 08:00 BP 145/67 09/02/20 07:20 Pulse Ox 97 09/02/20 09:20 Intake & Output 09/01/20 09/02/20 09/02/20 18:59 06:59 18:59 Weight 45.359 kg Other: Voiding Method Toilet Toilet # Voids 1 - Exam PHYSICAL EXAMINATION: GENERAL: The patient is alert and oriented x3, not in any acute distress. Well developed, well nourished. HEENT: Pupils are round and equally reacting to light. EOMI. No scleral icterus. No conjunctival pallor. Normocephalic, atraumatic. No pharyngeal erythema. No thyromegaly. CARDIOVASCULAR: S1 and S2 present. No murmurs, rubs, or gallops. PULMONARY: Chest is clear to auscultation, no wheezing or crackles. ABDOMEN: Soft, nontender, nondistended, normoactive bowel sounds. No palpable organomegaly. MUSCULOSKELETAL: No joint swelling or deformity. EXTREMITIES: No cyanosis, clubbing, or pedal edema. NEUROLOGICAL: Gross neurological examination did not reveal any focal deficits. SKIN: No rashes. - Labs CBC & Chem 7: 09/02/20 06:17 09/02/20 06:17 Labs: Abnormal Lab Results - Last 24 Hours (Table) 09/01/20 09/01/20 09/02/20 Range/Units 16:12 20:12 02:00 RBC (4.10-5.20) X 10*6/uL Hgb (12.0-15.0) g/dL Hct (37.2-46.3) % Neutrophils # (1.80-7.70) X 10*3/uL Lymphocytes # (0.90-5.00) X 10*3/uL Monocytes # (0.20-1.00) X 10*3/uL Eosinophils # (0.04-0.35) X 10*3/uL Glucose (70-110) mg/dL POC Glucose (mg/dL) 350 H 390 H 266 H (75-99) mg/dL 09/02/20 09/02/20 09/02/20 Range/Units 06:17 06:17 07:05 RBC 3.60 L (4.10-5.20) X 10*6/uL Hgb 11.3 L (12.0-15.0) g/dL Hct 34.5 L (37.2-46.3) % Neutrophils # 8.14 H (1.80-7.70) X 10*3/uL Lymphocytes # 0.51 L (0.90-5.00) X 10*3/uL Monocytes # 0.15 L (0.20-1.00) X 10*3/uL Eosinophils # 0 L (0.04-0.35) X 10*3/uL Glucose 322 H (70-110) mg/dL POC Glucose (mg/dL) 349 H (75-99) mg/dL 09/02/20 09/02/20 Range/Units 12:12 13:33 RBC (4.10-5.20) X 10*6/uL Hgb (12.0-15.0) g/dL Hct (37.2-46.3) % Neutrophils # (1.80-7.70) X 10*3/uL Lymphocytes # (0.90-5.00) X 10*3/uL Monocytes # (0.20-1.00) X 10*3/uL Eosinophils # (0.04-0.35) X 10*3/uL Glucose (70-110) mg/dL POC Glucose (mg/dL) 504 H 581 H (75-99) mg/dL Assessment and Plan Assessment: 1. Acute exacerbation of asthma; we will admit patient to medical floor and start patient on IV Solu-Medrol 60 mg every 6 hours along with DuoNeb and steroid nebulizer treatments; slow IV fluid hydration; continue home dose of Singulair 10 mg daily; consult pulmonary for further recommendations 2. Severe tracheobronchitis; doxycycline 100 mg IV every 12 hours. 3. Hyperglycemia without acidosis; order HbA1c; continue with basal along with high-intensity insulin sliding scale 4. Hypothyroidism; levothyroxin 75 MCG daily. 5. Diabetes mellitus, with diabetic neuropathy; patient has an insulin pump; we will continue basal insulin along with Accu-Cheks every before meals and at bedtime with insulin sliding scale. 6. Hyperlipidemia; Pravachol 40 mg by mouth daily at bedtime 7. Depression; Zoloft 12.5 mg daily 8. Gastroesophageal reflux disease; continue with home dose of omeprazole 40 mg daily and Carafate 1 g by mouth DVT prophylaxis; SCDs/subcu heparin CODE STATUS; full code
[2020-09-03 17:02] LABS: Glucose,Whole Blood 521 mg/dL (75-99)
--- NOTE | 2020-09-21 08:32 | P.DS ---
Providers Date of admission: 09/01/20 13:25 Expected date of discharge: 09/03/20 Attending physician: Korey Jeronimo Consults: 09/01/20 13:25 Consult Physician Routine Consulting Provider: Esme Bryan Consult Reason/Comments: COPD Do you want consulting provider notified?: Yes Primary care physician: Korey Jeronimo [facility] Course: 55-year-old female with history of asthma, who presents to the emergency department on September 01, complaining of shortness of breath. The patient recently saw her primary care provider, and apparently received IM Rocephin, and I am Depo-Medrol, but that did not really seem to make things better. She was not sent home on any antibiotics or steroids. She comes in with complaints of increasing shortness of breath, chest congestion, cough, and phlegm production. She denied any fever or chills. There was no chest pain or chest discomfort. She does not see a lung doctor. She did smoke in the past for only a few years. She does carry with her diagnosis of asthma. It appears that her only medications for her asthma include albuterol, and Singulair. She does have a history in addition to asthma of hypothyroidism, diabetes, and hyperlipidemia. ALLERGIES include codeine, penicillin, pain medications, and erythromycin. White count 3.8, with a normal hemoglobin, hematocrit, and platelet count. Sodium 131, potassium 4.6, chlorides 95, CO2 28, anion gap 8, BUN 12, and creatinine 0.71. The rest of her labs are okay. The patient did have a history of previous infection with coronavirus and apparently saw one of my partners in follow-up once in the office. Chest x-ray was normal. Acute exacerbation of asthma, not complicated by pneumonia, but possibly by tracheobronchitis. History of hypothyroidism. History of gastroesophageal reflux disease. History of diabetes mellitus, with diabetic neuropathy. History of hyperlipidemia. History of diverticular disease. Degenerative disc disease. Plan: 09/01/2020. The patient will be admitted to the hospital; DuoNeb, Pulmicort, formoterol, and Solu-Medrol. She should also benefit from an oral antibiotic. 09/02/2020. The patient's doing much better. She could be considered for discharge tomorrow. Currently, she is on doxycycline, which is been given IV. It could be certainly given orally. In addition, she is on albuterol, DuoNeb nebs, Solu- Medrol, Singulair, as well as is her usual medications. We will continue to follow the patient and make recommendations where appropriate. Prognosis is guarded. 09/03/2020. The patient is doing much better. She could be considered for discharge home today. The patient should be discharged home on her usual medications, and a prednisone burst and taper. She should follow-up with her crop scout. Patient Condition at Discharge: Fair Plan - Discharge Summary New Discharge Prescriptions: New Budesonide-Formot 160-4.5 Mcg [Symbicort 160-4.5 Mcg Inhaler] 2 puff INHALATION RT-BID #1 puff Doxycycline [Vibramycin] 100 mg PO BID #14 cap predniSONE See Taper PO DIRECTED 9 Days #21 tab Continue Sucralfate [Carafate] 1 gm PO AC-BID Levothyroxine Sodium [Synthroid] 75 mcg PO DAILY Montelukast [Singulair] 10 mg PO DAILY Sertraline [Zoloft] 12.5 mg PO DAILY Insulin Aspart (For Pump) [NovoLOG (For Pump)] 0.01 unit SQ-PUMP CONTINUOUS Pravastatin Sodium [Pravachol] 40 mg PO HS Albuterol Sulfate [Proair Hfa] 2 puff INHALATION RT-QID PRN PRN Reason: Shortness Of Breath Multivitamins, Thera [Multivitamin (formulary)] 1 tab PO DAILY Omeprazole 40 mg PO DAILY Discharge Medication List Levothyroxine Sodium [Synthroid] 75 mcg PO DAILY 12/19/14 [History] Sucralfate [Carafate] 1 gm PO AC-BID 12/19/14 [History] Albuterol Sulfate [Proair Hfa] 2 puff INHALATION RT-QID PRN 05/01/20 [History] Insulin Aspart (For Pump) [NovoLOG (For Pump)] 0.01 unit SQ-PUMP CONTINUOUS 05/01/20 [History] Montelukast [Singulair] 10 mg PO DAILY 05/01/20 [History] Pravastatin Sodium [Pravachol] 40 mg PO HS 05/01/20 [History] Sertraline [Zoloft] 12.5 mg PO DAILY 05/01/20 [History] Multivitamins, Thera [Multivitamin (formulary)] 1 tab PO DAILY 09/01/20 [History] Omeprazole 40 mg PO DAILY 09/01/20 [History] Budesonide-Formot 160-4.5 Mcg [Symbicort 160-4.5 Mcg Inhaler] 2 puff INHALATION RT-BID #1 puff 09/03/20 [Rx] Doxycycline [Vibramycin] 100 mg PO BID #14 cap 09/03/20 [Rx] predniSONE See Taper PO DIRECTED 9 Days #21 tab 09/03/20 [Rx] Follow up Appointment(s)/Referral(s): Korey Jeronimo DO [Primary Care Provider] - 1-2 days Discharge Disposition: HOME SELF-CARE
== END 2020-09-03 18:12 | disposition home or self-care (01) ==
LOC: EC 10:38 → 4SSUR 13:25 → INTOOBSV 13:25 → 4SSUR 14:39 → UNDODISIN 09-03 18:12
PROVIDERS: ADMIT Family Medicine; ATTEND Family Medicine
DX: J45.901 Unspecified asthma with (acute) exacerbation (principal); E11.65 Type 2 diabetes mellitus with hyperglycemia; J44.9 Chronic obstructive pulmonary disease, unspecified; K21.9 Gastro-esophageal reflux disease without esophagitis; E78.5 Hyperlipidemia, unspecified; E03.9 Hypothyroidism, unspecified; E11.319 Type 2 diabetes mellitus with unspecified diabetic retinopathy without macular edema; E11.42 Type 2 diabetes mellitus with diabetic polyneuropathy; K57.90 Diverticulosis of intestine, part unspecified, without perforation or abscess without bleeding; D64.9 Anemia, unspecified; G89.29 Other chronic pain; M54.2 Cervicalgia; M54.5 Low back pain; M41.9 Scoliosis, unspecified; F32.9 Major depressive disorder, single episode, unspecified; Z79.890 Hormone replacement therapy; Z79.4 Long term (current) use of insulin; Z79.899 Other long term (current) drug therapy; Z96.41 Presence of insulin pump (external) (internal); Z88.0 Allergy status to penicillin; Z88.1 Allergy status to other antibiotic agents; Z88.5 Allergy status to narcotic agent; Z87.891 Personal history of nicotine dependence; Z86.16 Personal history of COVID-19; Z90.49 Acquired absence of other specified parts of digestive tract; Z90.710 Acquired absence of both cervix and uterus; Z98.890 Other specified postprocedural states; Z98.891 History of uterine scar from previous surgery; Z98.51 Tubal ligation status; Z80.0 Family history of malignant neoplasm of digestive organs
CPT/HCPCS: 96376 ×2; 96365; 96366 ×2; 96375 ×2; 99285; 36415; 94640 ×5; 94760; 93005; 83880; 80053; 80048; 83605; 84484; 85025 ×2; 85610; 85730; 87635; 71046; G0378 ×3; J2930 ×3; J1885; 96374

== ENCOUNTER → 2021-12-31 | Outpatient (CLI) | payer MEDICARE, OTHER ==
--- NOTE | 2022-01-01 08:54 | XR ---
EXAMINATION TYPE: XR abdomen 2V DATE OF EXAM: 12/31/2021 COMPARISON: 01/27/2010 HISTORY: pain TECHNIQUE: One view abdominal series FINDINGS: The osseous structures are intact. The bowel gas pattern is nonspecific. Postsurgical change right u pper quadrant. Numerous calcifications in the pelvis are seen. Curvature of the spine. IMPRESSION: 1. Nonspecific abdomen.
== END | disposition home or self-care (01) ==
LOC: RADXRMAIN 15:29
PROVIDERS: ATTEND Family Medicine
DX: R10.0 Acute abdomen (principal)
CPT/HCPCS: 74019

== ENCOUNTER → 2022-10-07 | Outpatient (CLI) | payer MEDICARE, OTHER ==
--- NOTE | 2022-10-07 15:01 | US ---
EXAMINATION TYPE: US arterial LE single level DATE OF EXAM: 10/07/2022 1:41 PM CLINICAL INDICATION: Female, 57 years old with history of Z12.31 SCREENING MAMMO; Numbness History of: Smoker: Previous Hypertension: No Diabetic: Yes Hyperlipidemia: Yes TIA/CVA: No Previous Vascular Surgery: No CAD: No MD: No Vascular Ulcers: No Claudication: No Gangrene: No Doppler Waveforms: Right: Multiphasic Left: Multiphasic Right Brachial Pressure: 120 Left Brachial Pressure: 117 Ankle-Brachial Indices: Right: 1.2 Left: 1.1 Toe Brachial Indices: Right: 0.64 Left: 1.12 IMPRESSION: Normal ankle-brachial indices bilaterally.
== END | disposition home or self-care (01) ==
LOC: RADUSWWP 12:47
PROVIDERS: ATTEND Family Medicine
DX: I70.203 Unspecified atherosclerosis of native arteries of extremities, bilateral legs (principal); R20.0 Anesthesia of skin
CPT/HCPCS: 93922

== ENCOUNTER → 2022-10-18 | Outpatient (CLI) | payer MEDICARE, OTHER ==
--- NOTE | 2022-10-22 09:01 | MM ---
Reason for Exam: Screening (asymptomatic). Last mammogram was performed 1 year(s) and 1 month(s) ago. Patient History: Menarche at age 20. First Full-Term at age 20. Right ovary removed at age 35. Hysterectomy at age 35. Postmenopausal. Hormonal Contraceptives for 1 month starting at age 22. Risk Values: Wanda 5 year model risk: 0.8%. NCI Lifetime model risk: 5.5%. Prior Study Comparison: 07/21/2014 Bilateral Screening Mammogram, [facility]. 07/30/2017 Bilateral Screening Mammogram, [facility]. 09/28/2021 Bilateral MG screening mammo w CAD, [facility]. Tissue Density: The breast tissue is extremely dense which could obscure a lesion on mammography. Findings: Analyzed By CAD. There is no suspicious group of microcalcifications or new suspicious mass in either breast. Overall Assessment: Negative, BI-RAD 1 Management: Screening Mammogram of both breasts in 1 year. . Patient should continue monthly self-breast exams. A clinical breast exam by your physician is recommended on an annual basis. This exam should not preclude additional follow-up of suspicious palpable abnormalities. Note on Wanda scores and lifetime risk: 1. A Wanda score greater than 3% is considered moderate risk. If this is the case, consider specialist referral to assess eligibility for a risk reducing agent. 2. If overall lifetime risk for the development of breast cancer is 20% or higher, the patient may qualify for future screening with alternating mammogram and breast MRI. Electronically signed and approved by: Caesar Mora M.D. Radiologis
== END | disposition home or self-care (01) ==
LOC: RADMAMWWP 11:33
PROVIDERS: ATTEND Family Medicine
DX: Z12.31 Encounter for screening mammogram for malignant neoplasm of breast (principal); Z78.0 Asymptomatic menopausal state
CPT/HCPCS: 77063; 77067

== ENCOUNTER → 2023-01-10 | Outpatient (CLI) | payer MEDICARE, OTHER ==
--- NOTE | 2023-01-10 12:26 | XR ---
EXAMINATION TYPE: XR abdomen 2V DATE OF EXAM: 01/10/2023 COMPARISON: 12/31/2022 HISTORY: Pain TECHNIQUE: Two view abdominal series FINDINGS: The osseous structures are intact. The bowel gas pattern is nonspecific. Lung bases are clear. Scol iosis of the spine with surgical clips in the gallbladder fossa. There are prominent small bowel loop s in the midabdomen with slightly irregular mucosa. Calcifications in the pelvis are most likely rela david to phleboliths. Mild hypertrophic changes of the spine. IMPRESSION: 1. Nonspecific abdomen. A few dilated small bowel loops with air-fluid level and slightly irregular mucosa would favor an enteritis or ileus. Partial obstruction not entirely excluded.
== END | disposition home or self-care (01) ==
LOC: RADXRMAIN 11:34
PROVIDERS: ATTEND Family Medicine
DX: K21.9 Gastro-esophageal reflux disease without esophagitis (principal); R10.13 Epigastric pain
CPT/HCPCS: 74019

== ENCOUNTER → 2023-04-18 | Outpatient (CLI) | payer MEDICARE, OTHER ==
--- NOTE | 2023-04-18 12:15 | XR ---
EXAMINATION TYPE: XR chest 2V DATE OF EXAM: 04/18/2023 COMPARISON: 09/01/2020 HISTORY: 58-year-old female R09.89 OTH SYMPTOMS AND SIGNS INVOLVING THE CIRC A TECHNIQUE: Frontal and lateral views FINDINGS: The cardiomediastinal silhouette, aorta, and pulmonary vasculature are within normal limits. Lungs an d pleural spaces are clear. Slight dextroconvexed scoliosis of the spine. Cholecystectomy clips. IMPRESSION: No acute cardiopulmonary process.
== END | disposition home or self-care (01) ==
LOC: RADXRMAIN 10:36
PROVIDERS: ATTEND Family Medicine
DX: R09.89 Other specified symptoms and signs involving the circulatory and respiratory systems (principal)
CPT/HCPCS: 71046

== ENCOUNTER → 2023-10-22 | Outpatient (CLI) | payer MEDICARE, OTHER ==
--- NOTE | 2023-10-22 15:00 | XR ---
EXAMINATION TYPE: XR lumbar spine 3V DATE OF EXAM: 10/22/2023 Comparison: 10/01/2010 Clinical History: 58-year-old female K59.00 CONSTIPATION, DIARRHEA, POST GI VIRUS Findings: Rightward truncal shift. Cholecystectomy clips. 5 lumbar type vertebral bodies. Facet arthropathy low er lumbar spine. Vertebral body heights are preserved and alignment is maintained. Disc interspaces a lso relatively preserved. Impression: 1. Facet arthropathy lower lumbar spine. 2. No vertebral compression collapse or malalignment. 3. Rightward truncal shift may be positional or due to muscle spasm.
--- NOTE | 2023-10-25 21:03 | XR ---
EXAMINATION TYPE: XR abdomen 2V DATE OF EXAM: 10/22/2023 CLINICAL DATA: 58-year-old female, K59.00 CONSTIPATION, DIARRHEA, POST GI VIRUS, [facility] COMPARISON: 01/10/2023 FINDINGS: Slight dextro convex curvature lower thoracic spine. Cholecystectomy clips. Multiple pelvic phleboliths. Gassy small bowel without any abnormal dilatation. Mild stool in the left side of the a bdomen. No evidence for free intraperitoneal air. Lung bases are clear. IMPRESSION: Nonobstructive bowel gas pattern. No free air. Numerous pelvic phleboliths. [facility], , 10/25/2023 9:01 PM
== END | disposition home or self-care (01) ==
LOC: RADXRMAIN 12:41
PROVIDERS: ATTEND Nurse Practitioner Family
DX: R19.7 Diarrhea, unspecified (principal); M47.816 Spondylosis without myelopathy or radiculopathy, lumbar region
CPT/HCPCS: 72100; 74019

== ENCOUNTER → 2023-11-06 | Outpatient (CLI) | payer MEDICARE, OTHER ==
--- NOTE | 2023-11-09 13:31 | MM ---
Reason for Exam: Screening (asymptomatic). Last screening mammogram was performed 12 month(s) ago. Patient History: Menarche at age 20. First Full-Term at age 20. Right ovary removed at age 35. Hysterectomy at age 35. Postmenopausal. Hormonal Contraceptives for 1 month starting at age 22. Risk Values: Wanda 5 year model risk: 0.8%. NCI Lifetime model risk: 5.3%. Prior Study Comparison: 07/30/2017 Bilateral Screening Mammogram, [facility]. 09/28/2021 Bilateral MG screening mammo w CAD, [facility]. 10/18/2022 Bilateral MG 3D screening mammo w/cad, [facility]. Tissue Density: The breasts are extremely dense, which lowers the sensitivity of mammography. Findings: Analyzed By CAD. The pattern is symmetrical. No significant change No suspicious groups of microcalcifications, spiculated or lobular masses, architectural distortion or other secondary signs of malignancy are mammographically apparent. Overall Assessment: Benign, BI-RAD 2 Management: Screening Mammogram of both breasts in 1 year. A negative mammogram report should not preclude additional follow up of suspicious palpable abnormalities. Patient should continue monthly self breast exam. A clinical breast exam by your physician is recommended on an annual basis and results should be correlated with mammographic findings. Note on Wanda scores and lifetime risk: 1. A Wanda score greater than 3% is considered moderate risk. If this is the case, consider specialist referral to assess eligibility for a risk reducing agent. 2. If overall lifetime risk for the development of breast cancer is 20% or higher, the patient may qualify for future screening with alternating mammogram and breast MRI. [facility], , 11/09/2023 1:28 PM. Electronically signed and approved by: Abisai Lugo D.O. Radiologis
== END | disposition home or self-care (01) ==
LOC: RADMAMWWP 10:36
PROVIDERS: ATTEND Family Medicine
DX: Z12.31 Encounter for screening mammogram for malignant neoplasm of breast
CPT/HCPCS: 77063; 77067

== ENCOUNTER 2023-11-08 10:54 | Emergency (ER) | payer MEDICARE, OTHER ==
[2023-11-08 11:28] VITALS: RESP 18
[2023-11-08] MEDS: ONDANSETRON 4 MG/2 ML VIAL IVP STA (12:25)
[2023-11-08] MEDS: SODIUM CHLORIDE 0.9% 1,000 ML IV STA (12:25)
[2023-11-08] MEDS: KETOROLAC 15 MG/ML 1 ML VIAL IVP STA (12:25)
[2023-11-08 12:48] LABS: Appearance,Urine Clear (Clear); Bilirubin,Urine Negative (Negative); Blood,Urine Negative (Negative); Color,Urine Colorless; Glucose,Urine (UA) 2+ (Negative); Ketones,Urine Negative (Negative); Leukocyte Esterase,Urine Large (Negative); Nitrite,Urine Negative (Negative); PH, Urine 5.5 (5.0-8.0); Protein,Urine Negative (Negative); Specific Gravity,Urine 1.005 (1.001-1.035); Squamous Epithelial Cell,Urine <1 /hpf (0-4); Urobilinogen,Urine <2.0 mg/dL (<2.0); WBC,Urine 39 /hpf (0-5)
--- NOTE | 2023-11-08 12:48 | ED ---
Abdominal Pain HPI - General Chief Complaint: Abdominal Pain Stated Complaint: Diarrhea, abd pain, back pain Time Seen by Provider: 11/08/23 12:46 Source: patient, RN notes reviewed Mode of arrival: ambulatory Limitations: no limitations - History of Present Illness Initial Comments: 58-year-old female presented to the ER with a chief complaint of abdominal pain. Patient reports a history of pyloric stenosis with revision. She states since June she has been experiencing crampy achy abdominal pain. She has followed up with PCP who has completed an x-ray. Patient states she was told she had a "blockage". Patient has been taking [id number] Pepto-Bismol with mild relief of symptoms. She was prescribed Bentyl which typically helps but wears off quickly. She also reports she has been having consistent diarrhea with 11 bouts yesterday and 3 today. She denies any hematochezia or melena. Admits to nausea denies vomiting. Denies any known fevers but does report chills. Denies any chest pain, shortness of breath, urinary complaints or peripheral edema. - Related Data Home Medications Medication Instructions Recorded Confirmed Levothyroxine Sodium [Synthroid] 75 mcg PO DAILY 12/19/14 09/01/20 Sucralfate [Carafate] 1 gm PO AC-BID 12/19/14 09/01/20 Albuterol Sulfate [Proair Hfa] 2 puff INHALATION RT-QID PRN 05/01/20 09/01/20 Insulin Aspart (For Pump) [NovoLOG 0.01 unit SQ-PUMP CONTINUOUS 05/01/20 09/01/20 (For Pump)] Montelukast [Singulair] 10 mg PO DAILY 05/01/20 09/01/20 Pravastatin Sodium [Pravachol] 40 mg PO HS 05/01/20 09/01/20 Sertraline [Zoloft] 12.5 mg PO DAILY 05/01/20 09/01/20 Multivitamins, Thera [Multivitamin 1 tab PO DAILY 09/01/20 09/01/20 (formulary)] Omeprazole 40 mg PO DAILY 09/01/20 09/01/20 Previous Rx's Medication Instructions Recorded Budesonide-Formot 160-4.5 Mcg 2 puff INHALATION RT-BID #1 puff 09/03/20 [Symbicort 160-4.5 Mcg Inhaler] Doxycycline [Vibramycin] 100 mg PO BID #14 cap 09/03/20 predniSONE See Taper PO DIRECTED 9 Days 09/03/20 #21 tab Nitrofurantoin Monohyd/M-Cryst 100 mg PO Q12HR #14 cap 11/08/23 [Macrobid] Allergies Allergy/AdvReac Type Severity Reaction Status Date / Time codeine AdvReac Nausea & Verified 11/08/23 11:28 Vomiting erythromycin base AdvReac Nausea & Verified 11/08/23 11:28 Vomiting Penicillins AdvReac Nausea & Verified 11/08/23 11:28 Vomiting PAIN MEDS AdvReac Nausea & Uncoded 11/08/23 11:28 Vomiting Review of Systems ROS Statement: Those systems with pertinent positive or pertinent negative responses have been documented in the HPI. ROS Other: All systems not noted in ROS Statement are negative. Past Medical History Past Medical History: Asthma, Diabetes Mellitus, Eye Disorder, GERD/Reflux, Hyperlipidemia, Thyroid Disorder Additional Past Medical History / Comment(s): IDDM type II, insulin pump, occasional neuropathy bilateral legs, bilateral eye diabetic retinopathy, bronchitis, hypothyroid, chronic cervical and low back pain, DDD, mild scoliosis, anemia, diverticular disease History of Any Multi-Drug Resistant Organisms: None Reported Past Surgical History: Adenoidectomy, Section, Cholecystectomy, Hernia Repair, Hysterectomy, Orthopedic Surgery, Tonsillectomy, Tubal Ligation Additional Past Surgical History / Comment(s): Hiatal hernia repair, bilateral inguinal hernia repairs, surgery for pyloric stenosis as infant, sinus surgery x3, benign lipomas removed, EGD, colonoscopy, L vaginal lesion excision, R foot bunionectomy/cyst removed, bilateral wrist carpal tunnel releases. Past Anesthesia/Blood Transfusion Reactions: No Reported Reaction Past Psychological History: No Psychological Hx Reported Smoking Status: Former smoker Past Alcohol Use History: None Reported Past Drug Use History: None Reported - Past Family History Mother Family Medical History: Cancer Additional Family Medical History / Comment(s): Mother had lung and colon cancer. Father Family Medical History: No Reported History Additional Family Medical History / Comment(s): Mother of "old age" at the age of 80yrs. General Exam Limitations: no limitations General appearance: alert, in no apparent distress Respiratory exam: Present: normal lung sounds bilaterally. Absent: respiratory distress, wheezes, rales, rhonchi, stridor Cardiovascular Exam: Present: regular rate, normal rhythm, normal heart sounds. Absent: systolic murmur, diastolic murmur, rubs, gallop, clicks GI/Abdominal exam: Present: soft, tenderness (RUQ/LUQ), normal bowel sounds Extremities exam: Present: normal inspection, full ROM, normal capillary refill. Absent: tenderness, pedal edema, joint swelling, calf tenderness Neurological exam: Present: alert, oriented X3, CN II-XII intact Skin exam: Present: warm, dry, intact, normal color. Absent: rash Course Vital Signs 11/08/23 11/08/23 11:22 14:50 Temperature 98.5 F 98.7 F Pulse Rate 76 62 Respiratory 18 18 Rate Blood Pressure 150/78 130/71 O2 Sat by Pulse 98 96 Oximetry Medical Decision Making - Medical Decision Making Was pt. sent in by a medical professional or institution (, PA, SHAKE LOADER, urgent care, hospital, or alf...) When possible be specific @ -No Did you speak to anyone other than the patient for history (EMS, parent, family, police, friend...)? What history was obtained from this source @ -No Did you review nursing and triage notes (agree or disagree)? Why? @ -I reviewed and agree with nursing and triage notes Were old charts reviewed (outside hosp., previous admission, EMS record, old EKG, old radiological studies, urgent care reports/EKG's, alf records)? Report findings @ -No old charts were reviewed Differential Diagnosis (chest pain, altered mental status, abdominal pain women, abdominal pain men, vaginal bleeding, weakness, fever, dyspnea, syncope, headache, dizziness, GI bleed, back pain, seizure, CVA, palpatations, mental health, musculoskeletal)? @ -Differential Abdominal Pain Women:Appendicitis, Cholecystitis, diverticulosis, ischemic bowel, pancreatitis, hepatitis, UTI, gastroenteritis, AAA, incarcerated hernia, bowel obstruction, constipation, inflammatory bowel, hepatitis, peptic ulcer disease, splenic infarction, perforated viscus, vulvitis, ovarian torsion, PID, kidney stone, placenta abruption, this is not meant to be an all-inclusive list EKG interpreted by me (3pts min.). @ -None done X-rays interpreted by me (1pt min.). @ -None done CT interpreted by me (1pt min.). @ -CT abdomen pelvis negative for acute process. U/S interpreted by me (1pt. min.). @ -None done What testing was considered but not performed or refused? (CT, X-rays, U/S, l abs)? Why? @ -None What meds were considered but not given or refused? Why? @ -None Did you discuss the management of the patient with other professionals (professionals i.e. , PA, SHAKE LOADER, lab, RT, psych nurse, social media campaign manager, velvet cutter, teacher, field crop technical officer, showcase trimmer)? Give summary @ -No Was smoking cessation discussed for >3mins.? @ -No Was critical care preformed (if so, how long)? @ -No Were there social determinants of health that impacted care today? How? (Homelessness, low income, unemployed, alcoholism, drug addiction, transportation, low edu. Level, literacy, decrease access to med. care, fpc, rehab)? @ -No Was there de-escalation of care discussed even if they declined (Discuss DNR or withdrawal of care, Hospice)? DNR status @ -No What co-morbidities impacted this encounter? (DM, HTN, Smoking, COPD, CAD, Cancer, CVA, ARF, Chemo, Hep., AIDS, mental health diagnosis, sleep apnea, morbid obesity)? @ -None Was patient admitted / discharged? Hospital course, mention meds given and route, prescriptions, significant lab abnormalities, going to OR and other pertinent info. @ -Discharge. 58-year-old female presented to the ER with a chief complaint of abdominal pain x 4 months. History and physical exam completed. Vitals within limits. Patient no signs of distress nontoxic-appearing. Exam remarkable for right upper quadrant/left upper quadrant tenderness to palpation. Normal bowel sounds. No rebound or guarding. Laboratory studies obtained showing a macrocytic normochromic anemia hemoglobin of 11.2 which appears to be chronic in nature. Otherwise unremarkable. Urinalysis concerning of infection with large leukocyte esterases and [address] abdomen pelvis performed negative for acute process. Patient received IV fluids, Zofran and Toradol for pain control in the ER. Upon reevaluation, patient resting comfortably on stretcher no signs of acute distress. Patient reporting mild improvement of pain. No bouts of diarrhea while in the ER. Results discussed with patient, all questions answered. Advise close follow-up with PCP in the next 1 to 2 days. Macrobid prescribed. I also advised follow-up with GI, referral given. Patient received p.o. Bentyl prior to discharge. Recommend [id number] Imodium. Strict return parameters discussed. Patient discharged in stable condition. Patient verbally expressed understanding agree with care plan. Case discussed with ED attending, Dr. Mcmahan. Undiagnosed new problem with uncertain prognosis? @ -No Drug Therapy requiring intensive monitoring for toxicity (Heparin, Nitro, Insulin, Cardizem)? @ -No Were any procedures done? @ -No Diagnosis/symptom? @ -Diarrhea/UTI Acute, or Chronic, or Acute on Chronic? @ -Acute Uncomplicated (without systemic symptoms) or Complicated (systemic symptoms)? @ -Uncomplicated Side effects of treatment? @ -No Exacerbation, Progression, or Severe Exacerbation? @ -No Poses a threat to life or bodily function? How? (Chest pain, USA, CA, pneumonia, PE, COPD, DKA, ARF, appy, cholecystitis, CVA, Diverticulitis, Homicidal, Suicidal, threat to staff... and all critical care pts) @ -No - Lab Data Result diagrams: 11/08/23 12:23 11/08/23 12:23 Lab Results 11/08/23 11/08/23 11/08/23 Range/Units 12:23 12:23 12:23 WBC 9.4 (3.8-10.6) k/uL RBC 3.42 L (3.80-5.40) m/uL Hgb 11.2 L (11.4-16.0) gm/dL Hct 35.0 (34.0-46.0) % MCV 102.1 H (80.0-100.0) fL MCH 32.8 (25.0-35.0) pg MCHC 32.1 (31.0-37.0) g/dL RDW 12.8 (11.5-15.5) % Plt Count 263 (150-450) k/uL MPV 8.1 Neutrophils % (Manual) 80 % Lymphocytes % (Manual) 14 % Monocytes % (Manual) 4 % Eosinophils % (Manual) 1 % Basophils % (Manual) 1 % Neutrophils # (Manual) 7.52 (1.3-7.7) k/uL Lymphocytes # (Manual) 1.32 (1.0-4.8) k/uL Monocytes # (Manual) 0.38 (0-1.0) k/uL Eosinophils # (Manual) 0.09 (0-0.7) k/uL Basophils # (Manual) 0.09 (0-0.2) k/uL Nucleated RBCs 0 (0-0) /100 WBC Manual Slide Review Performed Macrocytosis Slight Sodium 133 L (137-145) mmol/L Potassium 4.3 (3.5-5.1) mmol/L Chloride 100 (98-107) mmol/L Carbon Dioxide 27 (22-30) mmol/L Anion Gap 6 mmol/L BUN 14 (7-17) mg/dL Creatinine 0.69 (0.52-1.04) mg/dL Est GFR (CKD-EPI)AfAm >90 (>60 ml/min/1.73 sqM) Est GFR (CKD-EPI)NonAf >90 (>60 ml/min/1.73 sqM) Glucose 236 H (74-99) mg/dL Plasma Lactic Acid Romie (0.7-2.0) mmol/L Calcium 9.1 (8.4-10.2) mg/dL Total Bilirubin 0.6 (0.2-1.3) mg/dL AST 25 (14-36) U/L ALT 16 (4-34) U/L Alkaline Phosphatase 55 (38-126) U/L Total Protein 6.7 (6.3-8.2) g/dL Albumin 4.2 (3.5-5.0) g/dL Amylase 47 (30-110) U/L Lipase 41 (23-300) U/L Urine Color Colorless Urine Appearance Clear (Clear) Urine pH 5.5 (5.0-8.0) Ur Specific Philipp 1.005 (1.001-1.035) Urine Protein Negative (Negative) Urine Glucose (UA) 2+ H (Negative) Urine Ketones Negative (Negative) Urine Blood Negative (Negative) Urine Nitrite Negative (Negative) Urine Bilirubin Negative (Negative) Urine Urobilinogen <2.0 (<2.0) mg/dL Ur Leukocyte Esterase Large H (Negative) Urine WBC 39 H (0-5) /hpf Ur Squamous Epith Cells <1 (0-4) /hpf 11/08/23 Range/Units 12:23 WBC (3.8-10.6) k/uL RBC (3.80-5.40) m/uL Hgb (11.4-16.0) gm/dL Hct (34.0-46.0) % MCV (80.0-100.0) fL MCH (25.0-35.0) pg MCHC (31.0-37.0) g/dL RDW (11.5-15.5) % Plt Count (150-450) k/uL MPV Neutrophils % (Manual) % Lymphocytes % (Manual) % Monocytes % (Manual) % Eosinophils % (Manual) % Basophils % (Manual) % Neutrophils # (Manual) (1.3-7.7) k/uL Lymphocytes # (Manual) (1.0-4.8) k/uL Monocytes # (Manual) (0-1.0) k/uL Eosinophils # (Manual) (0-0.7) k/uL Basophils # (Manual) (0-0.2) k/uL Nucleated RBCs (0-0) /100 WBC Manual Slide Review Macrocytosis Sodium (137-145) mmol/L Potassium (3.5-5.1) mmol/L Chloride (98-107) mmol/L Carbon Dioxide (22-30) mmol/L Anion Gap mmol/L BUN (7-17) mg/dL Creatinine (0.52-1.04) mg/dL Est GFR (CKD-EPI)AfAm (>60 ml/min/1.73 sqM) Est GFR (CKD-EPI)NonAf (>60 ml/min/1.73 sqM) Glucose (74-99) mg/dL Plasma Lactic Acid Romie 1.0 (0.7-2.0) mmol/L Calcium (8.4-10.2) mg/dL Total Bilirubin (0.2-1.3) mg/dL AST (14-36) U/L ALT (4-34) U/L Alkaline Phosphatase (38-126) U/L Total Protein (6.3-8.2) g/dL Albumin (3.5-5.0) g/dL Amylase (30-110) U/L Lipase (23-300) U/L Urine Color Urine Appearance (Clear) Urine pH (5.0-8.0) Ur Specific Philipp (1.001-1.035) Urine Protein (Negative) Urine Glucose (UA) (Negative) Urine Ketones (Negative) Urine Blood (Negative) Urine Nitrite (Negative) Urine Bilirubin (Negative) Urine Urobilinogen (<2.0) mg/dL Ur Leukocyte Esterase (Negative) Urine WBC (0-5) /hpf Ur Squamous Epith Cells (0-4) /hpf - Radiology Data Radiology results: report reviewed, image reviewed Disposition Clinical Impression: Abdominal pain, Diarrhea, UTI (urinary tract infection) Disposition: HOME SELF-CARE Condition: Stable Instructions (If sedation given, give patient instructions): Abdominal Pain (ED) Additional Instructions: Complete full course of Macrobid for UTI. Follow-up with PCP in the next 1 to 2 days. Return to the ER for any new or worsening concerns. Prescriptions: Nitrofurantoin Monohyd/M-Cryst [Macrobid] 100 mg PO Q12HR #14 cap Is patient prescribed a controlled substance at d/c from ED?: No Referrals: Korey Jeronimo DO [Primary Care Provider] - 1-2 days Concepcion De La Cruz MD [STAFF PHYSICIAN] - 1-2 days Time of Disposition: 14:39
[2023-11-08 12:50] LABS: HGB 11.2 gm/dL (11.4-16.0); MCH 32.8 pg (25.0-35.0); MCHC 32.1 g/dL (31.0-37.0); MCV 102.1 fL (80.0-100.0); Macrocytosis Slight; Mean Platelet Volume 8.1; Platelet Count 263 k/uL (150-450); RBC 3.42 m/uL (3.80-5.40); RDW 12.8 % (11.5-15.5); WBC 9.4 k/uL (3.8-10.6)
[2023-11-08 12:51] LABS: ALT 16 U/L (4-34); AST 25 U/L (14-36); African American GFR (CKD) >90 (>60 ml/min/1.73 sqM); Albumin 4.2 g/dL (3.5-5.0); Alkaline Phosphatase 55 U/L (38-126); Amylase 47 U/L (30-110); Anion Gap 6 mmol/L; Blood Urea Nitrogen 14 mg/dL (7-17); Calcium 9.1 mg/dL (8.4-10.2); Carbon Dioxide 27 mmol/L (22-30); Chloride 100 mmol/L (98-107); Glucose 236 mg/dL (74-99); Lipase 41 U/L (23-300); Non-African American GFR(CKD) >90 (>60 ml/min/1.73 sqM); Potassium 4.3 mmol/L (3.5-5.1); Sodium 133 mmol/L (137-145); Total Bilirubin 0.6 mg/dL (0.2-1.3); Total Protein 6.7 g/dL (6.3-8.2)
[2023-11-08 13:12] LABS: Basophils # (M) 0.09 k/uL (0-0.2); Eosinophils # (M) 0.09 k/uL (0-0.7); Lymphocytes # (M) 1.32 k/uL (1.0-4.8); Monocytes # (M) 0.38 k/uL (0-1.0); Neutrophils # (M) 7.52 k/uL (1.3-7.7); Neutrophils % (M) 80 %; Nucleated Red Blood Cells 0 /100 WBC (0-0); Total Cells Counted 100
--- NOTE | 2023-11-08 13:50 | CT ---
EXAMINATION TYPE: CT abdomen pelvis w con DATE OF EXAM: 11/08/2023 COMPARISON: 02/26/2019 HISTORY: upper abdominal pain, plugged colon, burning while peeing, diarrhea CT DLP: 459.2 mGycm Automated exposure control for dose reduction was used. TECHNIQUE: Helical acquisition of images was performed from the lung bases through the pelvis. CONTRAST: Performed without Oral Contrast and with IV Contrast, patient injected with 100ml mL of Isovue 300. FINDINGS: There is a 2 to 3 mm nodule in the left lung base and mild interstitial scarring in the left lung bas e. The right lung base is clear. There are postsurgical changes at the GE junction. There is surgical absence of the gallbladder. There is no biliary ductal dilatation. There is no focal mass or organomegaly involving the liver, pancreas, spleen or adrenal glands. There is no solid renal mass or hydronephrosis and there is homogeneous contrast enhancement of the r enal parenchyma. The caliber the abdominal aorta is normal is no retroperitoneal adenopathy or hemorr ilan. The bowel loops are normal in caliber and there is no evidence of dilatation or obstruction. No infla mmatory changes are identified in the bowel wall or mesentery. There is no free intraperitoneal air or fluid. No pelvic mass, free fluid, abscess or adenopathy. There is surgical absence of uterus. The osseous structures and soft tissues are intact. IMPRESSION: No acute changes within the abdomen or pelvis. [facility], , 11/08/2023 1:47 PM
[2023-11-08] MEDS: HYDROmorphone 0.5 MG/0.5 ML SYRINGE IVP STA (14:20)
[2023-11-08] MEDS: DICYCLOMINE 20 MG TAB PO STA (14:42)
[2023-11-08 15:38] VITALS: BP 130/71; PULSE 62; TEMP 98.7
== END 2023-11-08 14:50 | disposition home or self-care (01) ==
LOC: EC 10:54
CPT/HCPCS: 36415; 74177; 80053; 81001; 82150; 83605; 83690; 85025; 96361; 96374; 96375; 99284

== ENCOUNTER → 2023-11-19 | Outpatient (CLI) | payer MEDICARE, OTHER ==
--- NOTE | 2023-11-19 10:59 | US ---
EXAMINATION TYPE: US abdomen complete DATE OF EXAM: 11/19/2023 COMPARISON: CT CLINICAL INDICATION: Female, 58 years old with history of R1011 RUQ PAIN; Pt states right side ABD pa in, GB removed TECHNIQUE: Grayscale and color Doppler imaging of the abdomen was performed. 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 Liver slightly coarsened in echo pattern. [facility], , 11/19/2023 10:57 AM
== END | disposition home or self-care (01) ==
LOC: RADUSWWP 09:29
PROVIDERS: ATTEND Family Medicine
DX: R10.11 Right upper quadrant pain
CPT/HCPCS: 76700

== ENCOUNTER → 2024-03-11 | Outpatient (CLI) | payer MEDICARE, OTHER ==
--- NOTE | 2024-03-11 12:26 | XR ---
EXAMINATION TYPE: XR chest 2V DATE OF EXAM: 03/11/2024 12:22 PM COMPARISON: Chest radiographs from 04/18/2023 TECHNIQUE: XR chest 2V Frontal and lateral views of the chest. CLINICAL INDICATION:Female, 59 years old with history of R05.9 COUGH, UNSPECIFIED; FINDINGS: Lungs/Pleura: There is no evidence of pleural effusion, focal consolidation, or pneumothorax. Pulmonary vascularity: Unremarkable. Heart/mediastinum: Cardiomediastinal silhouette is unremarkable. Musculoskeletal: No acute osseous pathology. Mild dextrocurvature of the thoracic spine. Other: Cholecystectomy clips in the right upper quadrant. IMPRESSION: No acute cardiopulmonary disease/process. [facility], , 03/11/2024 12:24 PM
[2024-03-11 14:58] LABS: Influenza A Not Detected (Not Detectd); Influenza B Not Detected (Not Detectd); RSV Not Detected (Not Detectd)
== END | disposition home or self-care (01) ==
LOC: RADXRMAIN 12:05
PROVIDERS: ATTEND Family Medicine
DX: R05.9 Cough, unspecified (principal); Z96.0 Presence of urogenital implants
CPT/HCPCS: 71046; 87636

== ENCOUNTER → 2024-08-30 | Outpatient (CLI) | payer MEDICARE, OTHER ==
[2024-08-30 21:22] LABS: Gliadin AB IgA, Deaminated Negative (Negative); Gliadin AB IgA, Unit 8.8 U/mL; Gliadin AB IgG, Deaminated Negative (Negative); Gliadin AB IgG, Unit <0.4 U/mL
[2024-08-31 02:13] LABS: Basophils # (A) 0.05 X 10*3/uL (0.00-0.10); Basophils % (A) 0.8 %; Eosinophils # (A) 0.21 X 10*3/uL (0.04-0.35); Eosinophils % (A) 3.4 %; HCT 33.7 % (37.2-46.3); HGB 10.9 g/dL (12.0-15.0); Immature Grans, Automated 0.30 %; Lymphocytes # (A) 2.17 X 10*3/uL (0.90-5.00); Lymphocytes % (A) 35.2 %; MCH 31.9 pg (27.0-32.0); MCHC 32.3 g/dL (32.0-37.0); MCV 98.5 FL (80.0-97.0); Monocytes # (A) 0.50 X 10*3/uL (0.20-1.00); Monocytes % (A) 8.1 %; NRBC Per 100 WBC 0 X 10*3/uL (0.00-0.01); Neutrophils # (A) 3.22 X 10*3/uL (1.80-7.70); Neutrophils % (A) 52.2 %; Platelet Count 268 X 10*3/uL (140-440); RBC 3.42 X 10*6/uL (4.10-5.20); RDW 12.6 % (11.5-14.5); WBC 6.17 X 10*3/uL (4.50-10.00)
== END | disposition home or self-care (01) ==
LOC: LABWHC1 14:52
PROVIDERS: ATTEND Nurse Practitioner Family
DX: Z83.79 Family history of other diseases of the digestive system (principal)
CPT/HCPCS: 36415; 83516; 85025